=== PATIENT | female | born 1940 | race Caucasian/White ===

== ENCOUNTER 2017-03-30 06:20 | Day surgery (SDC) | payer MEDICARE, BC ==
[~2017-03-30] VITALS: Ht 172.7 cm; Wt 69.4 kg
[~2017-03-30 06:20] MED LIST: ASPIRIN325 MG PO; B COMPLEX WITH1 EACH PO; CALCIUM CITRAT1 EAC3 PO; CO Q-10300 MG PO; FISH OIL 1,0001 EAC1 PO; GLUCOSAMINE 1,1 EACH PO; MACULAR VITAMI1 EACH PO; PRENATAL TABLE1 EAC2 PO; VITAMIN D32000 UNIT PO
--- NOTE | 2017-03-30 08:41 | NUR ---
03/30/17 0841 Summer Abbasi 0840- AT BEDSIDE.
--- NOTE | 2017-03-30 18:55 | OR ---
[facility] [address], [place] [address] Signed DATE OF OPERATION: 03/30/2017 SURGEON: Carlos Hoyt MD PREOPERATIVE DIAGNOSIS: Heme-positive stools. POSTOPERATIVE DIAGNOSIS: Polyps of rectosigmoid and rectum, unlikely source of heme-positive stools. PROCEDURE: Total colonoscopy to cecum with hot snare polypectomy x2 and cold morcellation polypectomy x4. SURGEON: Carlos Hoyt MD ANESTHESIA: Intravenous sedation, Propofol infusion, Nany José CRNA INDICATION: This 76-year-old white woman is a patient of Dr. Lamont Santoyo and was found to have heme-positive stool. She has never undergone colonoscopy in the past, though she has offered to have one several times. She is found to have 3/3 heme occult positive cards. She has had no overt rectal bleeding. She denies any abdominal pain. She is admitted to undergo colonoscopy. She understands the risks of bleeding, infection, and perforation. She notes that she has had issues with sedation in the past, mostly perioperative nausea and vomiting. On that basis and given her other medical comorbidities, anesthesia with propofol infusion is recommended. The risks of bleeding, infection, and perforation related to colonoscopy was reviewed. She understands and wished to proceed. FINDINGS: The prep was excellent. Complete colonoscopy was undertaken of the cecum. There were two larger sessile polyps, one at the rectosigmoid and one in the low rectum. She also had some diverticula of the sigmoid. There were small hyperplastic polyps of the low rectum, all excised with cold morcellation technique. DESCRIPTION OF PROCEDURE: The patient was brought to the endoscopy suite and placed in lateral decubitus position given intravenous sedation by the lumber straightened with propofol infusional technique and full Electronically Signed By: CARLOS HOYT MD 03/30/17 1855 PATIENT NAME: JOELLE GUZMAN OPERATIVE REPORT DATE OF : 40 PHYSICIAN: CARLOS HOYT MD REPORT #: [id number] REPORT IS CONFIDENTIAL AND NOT TO BE RELEASED WITHOUT AUTHORIZATION [facility] [address], [place] [address] Signed cardiopulmonary monitoring. Digital rectal examination was normal. An Olympus video colonoscope was passed in the rectum and manipulated throughout the colon ultimately intubating the cecum itself. The ileocecal valve and appendiceal orifice were normal. Abdominal wall stabilization was required as the colon was somewhat tortuous. The scope was withdrawn and examination throughout showed no sign of abnormality until the sigmoid or diverticula were noted. In the rectosigmoid with a sessile polyp, this was excised with hot snare polypectomy technique. A few diverticula were seen in the rectosigmoid as well. Further withdrawal of scope showed several small hyperplastic appearing polyps in the low rectum and one larger sessile polyp of the low rectum also. The small polyps were excised with cold morcellation technique, the larger with hot snare polypectomy technique as well. The scope was withdrawn and removed. The patient was taken to the recovery room in good condition. CONCLUDING DIAGNOSIS: Several polyps, two of which were possibly adenomatous, the most hyperplastic, however. These were unlikely a source of heme-positive stool. RECOMMENDATION: Repeat colonoscopy in 5 years or sooner if clinically indicated. She will return to the ongoing care of Dr. Santoyo. MD MILA Jeter/MODL /[id number] cc: Lamont Santoyo MD Electronically Signed By: CARLOS HOYT MD 03/30/17 1855 PATIENT NAME: JOELLE GUZMAN OPERATIVE REPORT DATE OF : 40 PHYSICIAN: CARLOS HOYT MD REPORT #: [id number] REPORT IS CONFIDENTIAL AND NOT TO BE RELEASED WITHOUT AUTHORIZATION
== END 2017-03-30 09:15 | disposition home or self-care (01) ==
LOC: DS 06:20 → OPS 06:20 → DS 06:45 → OPS 06:45 → DS 04-02 13:00
PROVIDERS: Surgery
PROC: 0DBN8ZX Excision of Sigmoid Colon, Via Natural or Artificial Opening Endoscopic, Diagnostic (ICD-10-PCS; 2017-03-30)
PROC: 0DBP8ZX Excision of Rectum, Via Natural or Artificial Opening Endoscopic, Diagnostic (ICD-10-PCS; principal; 2017-03-30 06:45)
DX: K62.1 Rectal polyp (principal); K63.5 Polyp of colon; Z88.5 Allergy status to narcotic agent; Z88.8 Allergy status to other drugs, medicaments and biological substances; Z90.710 Acquired absence of both cervix and uterus; Z90.49 Acquired absence of other specified parts of digestive tract; Z98.890 Other specified postprocedural states; Z79.899 Other long term (current) drug therapy; Z87.891 Personal history of nicotine dependence
CPT/HCPCS: 00810; 88305; J1100; J2250; J2405; J2704; J3010; J7120

== ENCOUNTER 2020-01-14 01:12 | Emergency (ER) | payer MEDICARE, BC ==
[~2020-01-14] VITALS: Ht 172.7 cm; Wt 69.4 kg
[2020-01-14] MEDS ORDERED: VITAMIN C500 M5 PO (01:42)
[2020-01-14] MEDS ORDERED: COENZYME Q10100 M1 PO (01:43)
[2020-01-14] MEDS ORDERED: FIBER625 MG (01:49)
[2020-01-14] MEDS ORDERED: OXYCODONE-ACET1 EAC1 PO (01:51)
--- NOTE | 2020-01-14 13:13 | EKG ---
[facility] [address] [facility] [place] [address] Signed Sinus tachycardia with premature atrial complexes Right bundle branch block Septal infarct , age undetermined T wave abnormality, consider lateral ischemia Abnormal ECG No previous ECGs available Confirmed by ALIVIA DAVALOS MD ([id number]) on 01/14/2020 1:13:03 PM Electronically Signed By: ALIVIA DAVALOS MD 01/14/20 1313 PATIENT NAME: JOELLE GUZMAN Electrocardiogram DATE OF : 40 PHYSICIAN: ALIVIA DAVALOS MD REPORT #: [id number] REPORT IS CONFIDENTIAL AND NOT TO BE RELEASED WITHOUT AUTHORIZATION
== END 2020-01-14 03:40 | disposition short-term general hospital (02) ==
LOC: ED 01:12
DX: I26.99 Other pulmonary embolism without acute cor pulmonale (principal); Z87.891 Personal history of nicotine dependence; Z88.8 Allergy status to other drugs, medicaments and biological substances; Z79.899 Other long term (current) drug therapy; Z79.82 Long term (current) use of aspirin
CPT/HCPCS: 71045; 71260; 80053; 83880; 84484; 85025; 85379; 85610; 85730; 93005; 93010; 96361; 99291; 99292; J1170; J1650; J2405; J7030; Q9967

== ENCOUNTER 2020-01-31 17:34 | Emergency (ER) | payer MEDICARE, BC ==
[~2020-01-31] VITALS: Ht 172.7 cm; Wt 69.4 kg
--- OUTSIDE RECORDS SUMMARY | ~2020-01-31 | XMS | Encounter Summary ---
Demographics + + + | Address | [address] | | | [place] [address] | + + + | Home Phone | | + + + | Preferred Language | Unknown | + + + | Marital Status | | + + + | Yazidism Affiliation | 1077 | + + + | Race | White | + + + | Ethnic Group | Not or | + + + Author + + + | Author | [facility] | | | and [place] | + + + | Organization | [facility] | | | and [place] | + + + | Address | Unknown | + + + | Phone | Unavailable | + + + Support + + + + + | Name | Relationship | Address | Phone | + + + + + | Pantera Quiñonez "Vanesa BAINS | ECON | [address] | | | [place] | | [place] | | | | | [address] | | + + + + + | Todd Paris | ECON | Unknown | | + + + + + Care Team Providers + +------+ + | Care Traffic Control Officer Name | Role | Phone | + +------+ + | Lamont Santoyo MD | PCP | | + +------+ + Encounter Details +--------+ + + + + | Date | Type | Department | Care Team | Description | +--------+ + + + + | 07/21/ | Imaging | [facility] | Provider, | | | 2019 | Exam | MED CTR EXTERNAL | [address] | | | | | IMAGING [address] | | | | | [address] [place] | [place] [address] | | | | | [place] [address] | | | | | | [phone] | | | +--------+ + + + + Social History + +-------+ +--------+------+ | Tobacco Use | Types | Packs/Day | Years | Date | | | | | Used | | + +-------+ +--------+------+ | Never Assessed | | | | | + +-------+ +--------+------+ + + + | Sex Assigned at | Date Recorded | | | | + + + | Not on file | | + + + documented as of this encounter Plan of Treatment +--------+---------+ + + + | Date | Type | Specialty | Care Team | Description | +--------+---------+ + + + | 01/31/ | Office | General Surgery | Pepe Stone, | | 2019 | Visit | | [address] | | | | | | [address] [place], | | | | | | [place] [address] | | | | | | [phone] | | | | | | | | +--------+---------+ + + + | 02/01/ | Office | Orthopedic Surgery | David Gomez, | | | 2019 | Visit | | [address] | | | | | | [place] [address] | | | | | | [phone] | | | | | | | | +--------+---------+ + + + documented as of this encounter Procedures + +--------+ + + + | Procedure Name | Priori | Date/Time | Associated Diagnosis | Comments | | | ty | | | | + +--------+ + + + | DEXA BONE DENSITY | Routin | 12/08/2017 | | Results for this | | STUDY GEORGETTE ZAMORA FX | e | 12:00 AM | | procedure are in the | | ASSESSMENT | | PDT | | results section. | + +--------+ + + + documented in this encounter Results DEXA Bone Density wo [facility] Fx Assmt (12/08/2017 12:00 AM PDT) + + | Specimen | + + | | + + + + + | Narrative | Performed At | + + + | External films for comparison only | [facility] | | | | | No results will be in the chart. | | + + + + +---------+ + + | Performing | Address | City/State/Zipcode | Phone Number | | Organization | | | | + +---------+ + + | [facility] | | | | + +---------+ + + documented in this encounter Visit Diagnoses Not on filedocumented in this encounter
--- OUTSIDE RECORDS SUMMARY | ~2020-01-31 | XMS | Encounter Summary ---
Demographics + + + | Address | [address] | | | [place] [address] | + + + | Home Phone | | + + + | Preferred Language | Unknown | + + + | Marital Status | | + + + | Adventist Affiliation | 1077 | + + + | Race | White | + + + | Ethnic Group | Not or | + + + Author + + + | Author | [facility] | | | and [place] | + + + | Organization | [facility] | | | [...] [place] | | | | | [address] | | + + + + + | Todd Paris | ECON | Unknown | | + + + + + Care Team Providers + +------+ + | Care Resistor Testing Machine Operator Name | Role | Phone | + +------+ + | Lamont Santoyo MD | PCP | | + +------+ + Reason for Visit + +--------+ + | Reason | Onset | Comments | | | Date | | + +--------+ + | Post-op Exam | 01/15/ | tube removal | | | 2019 | | + +--------+ + Encounter Details +--------+ + + + + | Date | Type | Department | Care Team | Description | +--------+ + + + + | 01/15/ | Telephone | [facility] | Pepe Stoen, | Post-op Exam (tube | | 2019 | | GENERAL SURGERY [address] | MD [address] | removal ) | | | | [address] | [address] [place], | | | | | [place], [place] | [place] [address] | | | | | [address] | [phone] | | | | | [phone] | | | +--------+ + + + + Social History + +-------+ +--------+ + | Tobacco Use | Types | Packs/Day | Years | Date | | | | | Used | | + +-------+ +--------+ + | Former Smoker | | | | Quit: 1996 | + +-------+ +--------+ + + +---+---+---+ | Smokeless Tobacco: | | | | | Never Used | | | | + +---+---+---+ + + +---------+ + | Alcohol Use | Drinks/Week | oz/Week | Comments | + + +---------+ + | Yes | 2 Glasses of wine | 2.0 | a night | + + +---------+ + + + + | Sex Assigned at | Date Recorded | | | | + + + | Not on file | | + + + documented as of this encounter Miscellaneous Notes Telephone Encounter - Nirali Valdovinos RN - 01/16/2020 2:44 PM PDTBelia, daughter, kamron ed two patient identifiers. Returned call to daughter in regards to patients current status. Advised that provider will call and check on her tomorrow when he is back tomorrow. Belia verbalized understanding and agreed with plan. elephone Encounter - Michell Breen - 01/16/2020 1:25 PM PDTBelia, is calling regarding Post-op Exam (tube removal ) and would like a call back. Additional Call Details: Daughter stated patient is admitted at [facility] and will not be making it to her 01/17 post-op. She stated the drainage tube has been kimberly janette and there is a hole where the tube was and patient is still having a lot of drainage. Loi freire is requesting that the provider call the hospital and speak with the provider that is in charge of her care to make sure all the information is correct. Belia is also requesting a call back. [facility] number is [phone] patient is in room 3108 If this is a symptom based call, was patient offered triage? 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 not applicable documented in this encounter Plan of Treatment +--------+---------+ + + + | Date | Type | Specialty | Care Team | Description | +--------+---------+ + + + | 01/31/ | Office | General Surgery | Pepe Stoen, | | 2019 | Visit | | [address] | | | | | | [address] [place] | | | | | | [place] [address] | | | | | | [phone] | | | | | | | | +--------+---------+ + + + | 02/01/ | Office | Orthopedic Surgery | David Gomez, | | 2019 | Visit | | [address] | | | | | | [place] [address] | | | | | | [phone] | | | | | | | | +--------+---------+ + + + documented as of this encounter Visit Diagnoses Not on filedocumented in this encounter
--- OUTSIDE RECORDS SUMMARY | ~2020-01-31 | XMS | Encounter Summary ---
Demographics + + + | Address | [address] | | | [place] [address] | + + + | Home Phone | | + + + | Preferred Language | Unknown | + + + | Marital Status | Unknown | + + + | Christianity Affiliation | Unknown | + + + | Race | Unknown | + + + | Ethnic Group | Unknown | + + + Author + + + | Author | [facility] | + + + | Organization | [facility] | + + + | Address | Unknown | + + + | Phone | Unavailable | + + + Care Team Providers + +------+ + | Care Newspaper Peddler Name | Role | Phone | + +------+ + PCP | Unavailable | + +------+ + Encounter Details +--------+ + + + + | Date | Type | Department | Care Team | Description | +--------+ + + + + | 01/15/ | Pharmacy | Pharmacy @ | | | | 2019 | Visit | [facility] | | | | | | [place] [address] [address] | | | | | | [facility] [address] | | | | | | [place] [address] | | | +--------+ + + + [...] as of this encounter Plan of Treatment Not on filedocumented as of this encounter Visit Diagnoses Not on filedocumented in this encounter"
--- OUTSIDE RECORDS SUMMARY | ~2020-01-31 | XMS | Encounter Summary ---
Demographics + + + | Address | [address] | | | [place] [address] | + + + | Home Phone | | + + + | Preferred Language | Unknown | + + + | Marital Status | | + + + | Lutheran Affiliation | 1077 | + + + | Race | White | + + + | Ethnic Group | Not or | + + + Author + + + | Author | [facility] | | | and [place] | + + + | Organization | [facility] | | | and [...] [place] | | | | | [address] | | + + + + + | Todd Paris | ECON | Unknown | | + + + + + Care Team Providers + +------+ + | Care Business Resiliency Manager Name | Role | Phone | + +------+ + | Lamont Santoyo MD | PCP | | + +------+ + Encounter Details +--------+ + + + + | Date | Type | Department | Care Team | Description | +--------+ + + + + | 11/25/ | Imaging | [facility] | Provider, | | | 2018 | Exam | MED CTR EXTERNAL | [address] | | | | | IMAGING [address] | [address] | | | | | [address] [place] | [place] [address] | | | | | [place] [address] | | | | | | [phone] | | | +--------+ + + + [...] | | | | | | [place] [address] | | | | | | [phone] | | | | | | | | +--------+---------+ + + + | 02/01/ | Office | Orthopedic Surgery | David Gomez, | | | 2019 | Visit | | [address] | | | | | | [place] [address] | | | | | | [phone] | | | | | | | | +--------+---------+ + + + documented as of this encounter Procedures + +--------+ + + + | Procedure Name | Priori | Date/Time | Associated Diagnosis | Comments | | | ty | | | | + +--------+ + + + | XR LUMBAR SPINE 2 OR | Routin | 11/02/2017 | | Results for this | | 3 VW | e | 12:20 PM | | procedure are in the | | | | PDT | | results section. | + +--------+ + + + documented in this encounter Results XR Lumbar Spine 2 or 3 Vw (11/02/2017 12:20 PM PDT) + + | Specimen | + [...]
--- OUTSIDE RECORDS SUMMARY | ~2020-01-31 | XMS | Encounter Summary ---
Demographics + + + | Address | [address] | | | [place] [address] | + + + | Home Phone | | + + + | Preferred Language | Unknown | + + + | Marital Status | | + + + | Synagogue Affiliation | 1077 | + + + | Race | White | + + + | Ethnic Group | Not or | + + + Author + + + | Author | [facility] | | | and [place] | + + + | Organization | [facility] | | | and [...] [place] | | | | | [address] | | + + + + + | Todd Paris | ECON | Unknown | | + + + + + Care Team Providers + +------+ + | Care Containers Sales Representative Name | Role | Phone | + +------+ + PCP | Unavailable | + +------+ + Encounter Details +--------+ + + + + | Date | Type | Department | Care Team | Description | +--------+ + + + + | 04/15/ | Hospital | [facility] | Slade De Leon, | | | 1999 | Encounter | MED CTR XRAY [address] | MD [address] | | | | | [place] | [place], [place] | | | | | [place] [address] | [address] | | | | | [phone] | | | +--------+ + + + [...] General Surgery | Pepe Stone, | | | 2019 | Visit | | [address] | | | | | | [address] [place] | | | | | | [place] [address] | | | | | | [phone] | | | | | | | | +--------+---------+ + + + | 02/01/ | Office | Orthopedic Surgery | David Gomez, | | | 2019 | Visit | | [address] | | | | | | [place] [address] | | | | | | [phone] | | | | | | | | +--------+---------+ + + + documented as of this encounter Visit Diagnoses Not on filedocumented in this encounter
--- OUTSIDE RECORDS SUMMARY | ~2020-01-31 | XMS | Encounter Summary ---
Demographics + + + | Address | [address] | | | [place] [address] | + + + | Home Phone | | + + + | Preferred Language | Unknown | + + + | Marital Status | Unknown | + + + | Orthodoxy Affiliation | Unknown | + + + | Race | Unknown | + + + | Ethnic Group | Unknown | + + + Author + + + | Author | [facility] | + + + | Organization | [facility] | + + + | Address | Unknown | + + + | Phone | Unavailable | + + + Care Team Providers + +------+ + | Care Ribbon Cleaner Name | Role | Phone | + +------+ + PCP | Unavailable | + +------+ + Encounter Details +--------+ + + + + | Date | Type | Department | Care Team | Description | +--------+ + + + + | 01/16/ | Pharmacy | Pharmacy @ | | | | 2019 | Visit | [facility] | | | | | | [place] [address] [address] | | | | | | [facility] [address] | | | | | | [place] [address] | | | +--------+ + + + [...]
--- OUTSIDE RECORDS SUMMARY | ~2020-01-31 | XMS | Encounter Summary ---
Demographics + + + | Address | [address] | | | [place] [address] | + + + | Home Phone | | + + + | Preferred Language | Unknown | + + + | Marital Status | | + + + | Caodaism Affiliation | 1077 | + + + | Race | White | + + + | Ethnic Group | Not or | + + + Author + + + | Author | [facility] | | | and [place] | + + + | Organization | [facility] | | [...] [place] | | | | | [address] | | + + + + + | Todd Paris | ECON | Unknown | | + + + + + Care Team Providers + +------+ + | Care Outdoor Pursuits Instructor Name | Role | Phone | + +------+ + | Lamont Santoyo MD | PCP | | + +------+ + Encounter Details +--------+ + + + + | Date | Type | Department | Care Team | Description | +--------+ + + + + | 12/23/ | Orders Only | [facility] [place] | Yassine Beach MD | Back pain, | | 2018 | | NEUROSURGERY [address] | unspecified back | | | | [address] | [place] [address] | location, | | | | [place] | [phone] | unspecified back | | | | [address] | | pain laterality, | | | | [phone] | | unspecified | | | | | | chronicity (Primary | | | | | | Dx) | +--------+ + + + + Social [...] Surgery | Pepe Stone, | | | 2020 | Visit | | [address] | | | | | | [address] [place], | | | | | | [place] [address] | | | | | | [phone] | | | | | | | | +--------+---------+ + + + | 02/01/ | Office | Orthopedic Surgery | Patricia David Catarina, | | | 2019 | Visit | | [address] [facility] | | | | | | [place] [address] | | | | | | [phone] | | | | | | | | +--------+---------+ + + + documented as of this encounter Visit Diagnoses + + | Diagnosis | + + | Back pain, unspecified back location, unspecified back pain laterality, unspecified | | chronicity - Primary | + + documented in this encounter
--- OUTSIDE RECORDS SUMMARY | ~2020-01-31 | XMS | Encounter Summary ---
Demographics + + + | Address | [address] | | | [place] [address] | + + + | Home Phone | | + + + | Preferred Language | Unknown | + + + | Marital Status | | + + + | Taoist Affiliation | 1077 | + + + | Race | White | + + + | Ethnic Group | Not or | + + + Author + + + | Author | [facility] | | | and [place] | + + + | Organization | [facility] | | | and [place] | + + + | Address | Unknown | + + + | Phone | Unavailable | + + + Support + + + + + | Name | Relationship | Address | Phone | + + + + + | Pantera Quiñonez "Vanesa BAISN | ECON | [address] | | | [place] | | [place] | | | | | [address] | | + + + + + | Lizz Paris | ECON | Unknown | | + + + + + Care Team Providers + +------+ + | Care Aspnet Developer Name | Role | Phone | + +------+ + | Lamont Santoyo MD | PCP | | + +------+ + Reason for Visit + +--------+ + | Reason | Onset | Comments | | | Date | | + +--------+ + | Referral (Follow up) | 01/27/ | | | | 2017 | | + +--------+ + Encounter Details +--------+ + + + + | Date | Type | Department | Care Team | Description | +--------+ + + + + | 01/27/ | Telephone | [facility] | Yassine Beach MD | Referral (Follow up) | | 2018 | | NEUROSURGERY [address] | [address] | | | | | [facility] [address] | [place] [address] | | | | | [place] | [phone] | | | | | [address] | | | | | | [phone] | | | +--------+ + + + [...] + + +---------+ + | Yes | 7 Glasses of wine | 14.0 | | | | 7 Standard drinks | | | | | or equivalent | | | + + +---------+ + + + + | Sex Assigned at | Date Recorded | | | | + + + | Not on file | | + + + documented as of this encounter Miscellaneous Notes Telephone Encounter - Kurtis Burton Cert MA - 02/03/2018 4:14 PM PDTI spoke with Fátmia. I let her know that due to Dr. Ty declining her referral, lizz has suggested a refe rral to a pain clinic. We talked briefly about pain clinics and what they do typically for patients. She is not on pain medications right now. She said she would prefer to give her symptoms more time to see if they get better on their own. If not, she will call us to scott gomez a referral to [facility] in [place]. [place] elephone Encounte r - Andrew Mao PA-C - 02/02/2018 8:43 AM PDTWe should work on having her establi sh with a pain medicine clinic to help manage her pain. elephone Encounter - [facility] - 01/27/2018 10:35 AM PDTPatient called in and I was able to relay to her that Dr. Angelina rob declined her referral and and I relayed his review of the referral: "Referral closed- decreased bone density with too many compression fx. Injections not an op tion." I discussed with patient that I will forward this information to Lizz Mao, and we will con tact her with further recommendations. She verbalized understanding. Last Office Visit: 01/15/2018 Lizz Last Plan: Obtain DEXA, "The patient would like to avoid surgery at this time. She would like to intensify conservative therapy as we have discussed. I will provide a referral to marlena navarro. We discussed working on getting her LSO brace for comfort during her healing. I again reiterated following up with her primary care provider for her osteoporosis treatments as well as further discussion regarding her heart murmur." Next Office Visit: None Please advise further. Ellen lizarraga in this encounter Plan of Treatment +--------+---------+ + + + | Date | Type | Specialty | Care Team | Description | +--------+---------+ + + + | 01/31/ | Office | General Surgery | Pepe Stone, | | | 2019 | Visit | | MD [address] | | | | | | [address] [place], | | | | | | [place] [address] | | | | | | [phone] | | | | | | | | +--------+---------+ + + + | 02/01/ | Office | Orthopedic Surgery | David Gomez, | | | 2019 | Visit | | [address] | | | | | | [place] [address] | | | | | | [phone] | | | | | | | | +--------+---------+ + + + documented as of this encounter Visit Diagnoses Not on filedocumented in this encounter
--- OUTSIDE RECORDS SUMMARY | ~2020-01-31 | XMS | Encounter Summary ---
Demographics + + + | Address | [address] | | | [place] [address] | + + + | Home Phone | | + + + | Preferred Language | Unknown | + + + | Marital Status | | + + + | Scientology Affiliation | 1077 | + + + | Race | White | + + + | Ethnic Group | Not or | + + + Author + + + | Author | [facility] | | | and [place] | + + + | Organization | [facility] | | | [...] [place] | | | | | [address] | | + + + + + | Todd Paris | ECON | Unknown | | + + + + + Care Team Providers + +------+ + | Care Data Modeling Architect Name | Role | Phone | + +------+ + | Lamont Santoyo MD | PCP | | + +------+ + Encounter Details +--------+ + + + + | Date | Type | Department | Care Team | Description | +--------+ + + + + | 01/11/ | Imaging | [facility] | Provider, | | | 2018 | Exam | [facility] | MD [address] | | | | | IMAGING [address] | | | | | [address] | [place] [address] | | | | | [place] [address] | | | | | | [phone] | | | +--------+ + + + + Social History + +-------+ +--------+ + | Tobacco Use | Types | Packs/Day | Years | Date | | | | | Used | | + +-------+ +--------+ + | Former Smoker | | | | Quit: 1995 | + +-------+ +--------+ + + + +---------+ + | Alcohol Use | Drinks/Week | oz/Week | Comments | + + +---------+ + | Not Asked | 7 Standard drinks | 7.0 | | | | or equivalent | [...] [place], | | | | | | [place] [address] | | | | | | [phone] | | | | | | | | +--------+---------+ + + + | 02/01/ | Office | Orthopedic Surgery | David Gomez, | | | 2019 | Visit | | [address] | | | | | | [place] [address] | | | | | | [phone] | | | | | | | | +--------+---------+ + + + documented as of this encounter Procedures + +--------+ + + + | Procedure Name | Priori | Date/Time | Associated Diagnosis | Comments | | | ty | | | | + +--------+ + + + | XR LUMBAR SPINE | Routin | 01/08/2018 | | Results for this | | COMPLETE INCLUDING | e | 1:00 PM | | procedure are in the | | BENDING 6 + VW | | PDT | | results section. | + +--------+ + + + documented in this encounter Results XR Lumbar Spine Complete With Bending 6+ (01/08/2018 1:00 PM PDT) + + | Specimen | [...]
--- OUTSIDE RECORDS SUMMARY | ~2020-01-31 | XMS | Encounter Summary ---
Demographics + + + | Address | [address] | | | [place] [address] | + + + | Home Phone | | + + + | Preferred Language | Unknown | + + + | Marital Status | | + + + | Adventist Affiliation | 1077 | + + + | Race | White | + + + | Ethnic Group | Not or | + + + Author + + + | Author | [facility] | | | and [place] | + + + | Organization | [facility] | | | and [...] [place] | | | | | [address] | | + + + + + | Todd [place] | ECON | Unknown | | + + + + + Care Team Providers + +------+ + | Care Knuckle Bender Name | Role | Phone | + [...] | | | [address] | [place] [address] | | | | | [place] [address] | | | | | | [phone] | | | +--------+ + + + [...] | | | | | | [place] [address] | | | | | | [phone] | | | | | | | | +--------+---------+ + + + | 02/01/ | Office | Orthopedic Surgery | David Gomez, | | | 2019 | Visit | | [address] | | | | | | [place] [address] | | | | | | [phone] | | | | | | | | +--------+---------+ + + + documented as of this encounter Procedures + +--------+ + + + | Procedure Name | Priori | Date/Time | Associated Diagnosis | Comments | | | ty | | | | + +--------+ + + + | MRI LUMBAR SPINE WO | Routin | 11/11/2017 | | Results for this | | CONTRAST | e | 11:05 AM | | procedure are in the | | | | PDT | | results section. | + +--------+ + + + documented in this encounter Results MRI Lumbar Spine wo Contrast (11/11/2017 11:05 AM PDT) + + | Specimen | [...]
--- OUTSIDE RECORDS SUMMARY | ~2020-01-31 | XMS | Encounter Summary ---
Demographics + + + | Address | [address] | | | [place] [address] | + + + | Home Phone | | + + + | Preferred Language | Unknown | + + + | Marital Status | | + + + | Religion Affiliation | 1077 | + + + | Race | White | + + + | Ethnic Group | Not or | + + + Author + + + | Author | Merged With [facility] | | | and [place] | + + + | Organization | Merged With [facility] | | | [...] [place] | | | | | [id number] | | + + + + + | Todd Guzman | ECON | Unknown | | + + + + + Care Team Providers + +------+ + | Care Church Warden Name | Role | Phone | + +------+ + | Lamont Santoyo MD | PCP | | + +------+ + Reason for Visit Auth/Cert +--------+--------+ + + + + | Status | Reason | Specialty | Diagnoses / | Referred By | Referred To | | | | | Procedures | Contact | Contact | +--------+--------+ + + + + | | | | Diagnoses | | Patricia, | | | | | Malignant | | David Elmore MD | | | | | melanoma of | | [address] | | | | | finger of | | [facility], | | | | | right hand | | [place] [address] | | | | | (HCC) | | Phone: | | | | | Procedures | | [phone] | | | | | [place] EXC | | Fax: | | | | | MICHELLE/VAS MAL | | [phone] | | | | | SFT TIS | | | | | | | HAND/FNGR | | | | | | | SUBFASC<1.5C | | | | | | | M BIOPSY | | | | | | | LYMPH NODE | | | | | | | GENERAL | | | | | | | EXCISION | | | | | | | LESION HAND | | | | | | | / FINGER, | | | | | | | EXCISIONAL | | | | | | | BIOPSY RIGHT | | | | | | | INDEX | | | | | | | FINGER | | | | | | | VERSUS | | | | | | | RESECTION | | | +--------+--------+ + + + + Encounter Details +--------+---------+ + + + | Date | Type | Department | Care Team | Description | +--------+---------+ + + + | 12/12/ | Surgery | [facility] | Pepe Stone, | BIOPSY LYMPH NODE | | 2020 | | [facility] | [address] | GENERAL | | | | OPERATING ROOM [address] | [address] [facility] | | | | | [address] | [place] [address] | | | | | [place], [place] | [phone] | | | | | [address] | | | | | | [phone] | | | +--------+---------+ + + + Social History + +-------+ [...] + + documented as of this encounter Last Filed Vital Signs + + + + + | Vital Sign | Reading | Time Taken | Comments | + + + + + | Blood Pressure | 170/77 | 12/13/2019 6:25 PM | | | | | PDT | | + + + + + | Pulse | 74 | 12/13/2019 6:25 PM | | | | | PDT | | + + + + + | Temperature | 36.4 C (97.6 F) | 12/13/2019 5:44 PM | | | | | PDT | | + + + + + | Respiratory Rate | 16 | 12/13/2019 6:25 PM | | | | | PDT | | + + + + + | Oxygen Saturation | 100% | 12/13/2019 6:25 PM | | | | | PDT | | + + + + + | Inhaled Oxygen | - | - | | | Concentration | | | | + + + + + | Weight | 61.7 kg (136 lb 0.4 | 12/13/2019 4:00 PM | | | | oz) | PDT | | + + + + + | Height | 171.5 cm (5' 7.5") | 12/13/2019 4:00 PM | | | | | PDT | | + + + + + | Body Mass Index | 20.99 | 12/13/2019 4:00 PM | | | | | PDT | | + + + + + documented in this encounter Discharge Summaries David Gomez MD - [facility] Brief Post Op Discharge Note Post Procedure Discharge Note; See Operative Note for details Fátima Guzman Age/Gender 79 y.o. 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 Condition at Discharge: She will be discharged when she is ready per nursing protocol. See nursing notes regarding actual condition at discharge. David Gomez MD 8:27 AM PDT; 12/14/2019 cc: documented in this en counter Discharge Instructions Instructions Karyna Juarez, RN - 12/14/2019Formatting of this note might be different fr om the original. David Gomez MD Postoperative Instructions As you recover from surgery here are instructions to aid the healing process and keep you s afe. Diet Regular diet, or your diet specified by your primary care provider. Begin with enrrique ar liquids and advance to solids as you tolerate. No alcoholic beverages on the day of surge ry. Also, please AVOID smoking as this can significantly delay the healing process. Activity Keep the operative extremity above the level of your heart for the next 5 days . Please avoid shoulder slings as these place your hand/wrist below the level of your heart Dressing/Surgery site Please keep your dressing clean and dry. You may NOT remove your dressing. You may shower tomorrow but please keep your wound/dressing covered and dry Pain medicine Take pain medicine PRN or as needed. Try to wean yourself gradually off pain medicine over several days. Do NOT drink alcohol or take sleeping medicines while on narcotics. You should take pain medicine with food to avoid nausea. In addition, pain med icine may cause constipation. Please drink plenty of fluids and take a laxative of your martínez ce (over the counter) as needed. After surgery Slight swelling, pain and some bruising may occur after surgery. Please contact my office if any of the following occur: sustained temperature over 101.5?F, excessi ve bleeding, rapidly increasing numbness, inability to urinate within 8 hours, progressively increasing pain not relieved by pain medicines, signs of a wound infection (increased redne ss, swelling, pus drainage), or excessive swelling/tightness. Office appointment Please return to my office in 7-10 days for a dressing change. Call with any questions or to schedule/re-schedule an appointment. I look forward to seeing you. Provision for after-hours and emergency care: If you have an emergency such as chest pain or shortness of breath please call 9-1-1. If you need the doctor after hours or on the weekends, please refer to the phone number gfd ui. For [facility] offices located on [facility] and on [address] [place] [address] please call . This will take you to an answering service, who will then get you in contact with a medical professional. Acetaminophen; Hydrocodone tablets or capsules Brand Names: Anexsia, Lorcet, Lorcet HD, Lorcet Plus, Lortab, Tribune, Verdrocet, Vicodin, Vi codin ES, Vicodin HP, Xodol What is this medicine? ACETAMINOPHEN; HYDROCODONE (a set a KRISH agustín fen; denice droe KOE done) is a pain reliever. It is used to treat moderate to severe pain. How should I use this medicine? Take this medicine by mouth with a glass of water. Follow the directions on the prescriptio n label. You can take it with or without food. If it upsets your stomach, take it with food. Do not take your medicine more often than directed. A special MedGuide will be given to you by the pharmacist with each prescription and refill . Be sure to read this information carefully each time. Talk to your seasonal sales associate regarding the use of this medicine in children. Special care may be needed. What side effects may I notice from receiving this medicine? Side effects that you should report to your doctor or health director of health care marketing as soon as p ossible: allergic reactions like skin rash, itching or hives, swelling of the face, lips, or tong ue breathing problems confusion redness, blistering, peeling or loosening of the skin, including inside the mouth signs and symptoms of low blood pressure like dizziness; feeling faint or lightheaded, f alls; unusually weak or tired trouble passing urine or change in the amount of urine yellowing of the eyes or skin Side effects that usually do not require medical attention (report to your doctor or health director of health care marketing if they continue or are bothersome): constipation dry mouth nausea, vomiting tiredness What may interact with this medicine? This medicine may interact with the following medications: alcohol antiviral medicines for HIV or AIDS atropine antihistamines for allergy, cough and cold certain antibiotics like erythromycin, clarithromycin certain medicines for anxiety or sleep certain medicines for bladder problems like oxybutynin, tolterodine certain medicines for depression like amitriptyline, fluoxetine, sertraline certain medicines for fungal infections like ketoconazole and itraconazole certain medicines for Parkinson's disease like benztropine, trihexyphenidyl certain medicines for seizures like carbamazepine, phenobarbital, phenytoin, primidone certain medicines for stomach problems like dicyclomine, hyoscyamine certain medicines for travel sickness like scopolamine general anesthetics like halothane, isoflurane, methoxyflurane, propofol ipratropium local anesthetics like lidocaine, pramoxine, tetracaine MAOIs like Carbex, Eldepryl, Marplan, Nardil, and Parnate medicines that relax muscles for surgery other medicines with acetaminophen other narcotic medicines for pain or cough phenothiazines like chlorpromazine, mesoridazine, prochlorperazine, thioridazine rifampin What if I miss a dose? If you miss a dose, take it as soon as you can. If it is almost time for your next dose, ta ke only that dose. Do not take double or extra doses. Where should I keep my medicine? Keep out of the reach of children. This medicine can be abused. Keep your medicine in a saf e place to protect it from theft. Do not share this medicine with anyone. Selling or giving away this medicine is dangerous and against the law. Store at room temperature between 15 and 30 degrees C (59 and 86 degrees F). This medicine may cause harm and if it is taken by other adults, children, or pets. R eturn medicine that has not been used to an official disposal site. Contact the [facility] at [phone] or your [facility] government to find a site. If you cannot return the medicine, flush it down the toilet. Do not use the medicine after the expiration date. What should I tell my health care provider before I take this medicine? They need to know if you have any of these conditions: brain tumor Crohn's disease, inflammatory bowel disease, or ulcerative colitis drug abuse or addiction head injury heart or circulation problems if you often drink alcohol kidney disease or problems going to the bathroom liver disease lung disease, asthma, or breathing problems an unusual or allergic reaction to acetaminophen, hydrocodone, other opioid analgesics, other medicines, foods, dyes, or preservatives or trying to get breast-feeding What should I watch for while using this medicine? Tell your doctor or health director of health care marketing if your pain does not go away, if it gets wors e, or if you have new or a different type of pain. You may develop tolerance to the medicine . Tolerance means that you will need a higher dose of the medicine for pain relief. Toleranc e is normal and is expected if you take the medicine for a long time. Do not suddenly stop taking your medicine because you may develop a severe reaction. Your b ranjeet becomes used to the medicine. This does NOT mean you are addicted. Addiction is a behavi or related to getting and using a drug for a non-medical reason. If you have pain, you have a medical reason to take pain medicine. Your doctor will tell you how much medicine to take. If your doctor wants you to stop the medicine, the dose will be slowly lowered over time to avoid any side effects. There are different types of narcotic medicines (opiates). If you take more than one type a t the same time or if you are taking another medicine that also causes drowsiness, you may h ave more side effects. Give your health care provider a list of all medicines you use. Your doctor will tell you how much medicine to take. Do not take more medicine than directed. Mehul l emergency for help if you have problems breathing or unusual sleepiness. Do not take other medicines that contain acetaminophen with this medicine. Always read joe becerra carefully. If you have questions, ask your doctor or pharmacist. If you take too much acetaminophen get medical help right away. Too much acetaminophen can be very dangerous and cause liver damage. Even if you do not have symptoms, it is important to get help right away. You may get drowsy or dizzy. Do not drive, use machinery, or do anything that needs mental alertness until you know how this medicine affects you. Do not stand or sit up quickly, ricardo cially if you are an older patient. This reduces the risk of dizzy or fainting spells. Alcoh ol may interfere with the effect of this medicine. Avoid alcoholic drinks. The medicine will cause constipation. Try to have a bowel movement at least every 2 to 3 da ys. If you do not have a bowel movement for 3 days, call your doctor or health care professi onal. Your mouth may get dry. Chewing sugarless gum or sucking hard candy, and drinking plenty of water may help. Contact your doctor if the problem does not go away or is severe. NOTE:This sheet is a summary. It may not cover all possible information. If you have questi ons about this medicine, talk to your doctor, pharmacist, or health care provider. Copyright 2020 [employer] [facility] Take Back Locations, Pain Management and Opioids: Pain Management, Prescription Opioids: Opioid medications can be addictive and anyone is at risk for developing an opioid use disorder. Keep yourself and others safe by limiting usage , disposing of all unused medications, and knowing how to recognize the signs of opioid use disorder. Be informed of the options available to help manage and treat your pain. Review t he pain management plan of care with your provider. ? What is an Opioid? Opioids are a class of drugs that include pain relievers available [facility] by prescription. Opioid pain relievers can be effective in treatment for relieving pain , however, regular use can lead to dependence, and misuse of opioid pain relievers. ? What are the risks? Opioid use disorder, physical dependence, falls and accidents, increa sed sensitivity to pain and overdose. Talk to your physician before combining medication. ? Safe storage: Never share or sell your opioid medications, keep opioid medications locked or in a safe location, keep out of reach of children and out of sight from others. Leave in the original bottle with the label attached. ? Possible side effects: Nausea, vomiting, and dry mouth, constipation, sleepiness and dizz iness, confusion, respiratory depression, withdrawal. ? Proper disposal: You are not required to use all of your opioid medication. To find your nearest take-back location for proper disposal of unused medications, please visit: http://www.takeGrey Island Energymeds.org/, https://apps.STinserion.[employer].gov/pubdispsea [facility]/spring/main?execution=e1s3 ? Activities of daily living (ADL) are routine activities people do every day without lucien tance. Non-pharmacological interventions can be useful and incorporated to help with activit ies of daily living. These include, but are not limited to: Repositioning, cold/warm malka ses, massage, decreasing environmental stimulation (decrease lighting, decrease noise), musi c, aromatherapy. JANUARY 2018 | [facility] Pub [phone] Location Address Phone # Take Back Hours Accepts Does NOT Accept [facility] [address] [place] [address] [phone] Lobby hours: M-F: 8am-5pm Sat-Sun: See their Facebook page for dates (every few weeks) - Pills: tablets, capsules (in cluding controlled substances) - Liquids - Topical lotions, gels, creams, ointments - Sharps, syringes (including insulin) - Inhalers [employer] [facility] [address] [place] [address] [phone] Lobby hours: M-F: 8am-12pm, 1pm-5pm (closed 12-1pm) Sat-Sun: CLOSED - Pills: tablets, capsules (including controlled substances) - Liquids - Topical lotions, gels, creams, ointments - Sharps, syringes (including insulin) - Inhalers [employer] [employer] [address] [place] [address] [phone] Lobby hours: M-F: 8:30am-4:30pm Sat-Sun: CLOSED - Pills: tablets, capsules (including controlled substances) - Patches - Liquids - Topical lotions, gels, creams, ointments - Sharps, syringes (including insulin) - Inhalers [employer] [employer] [facility] [address] [place] [address] [phone] Lobby hours: M-F: 8am-5pm Sat-Sun: CLOSED - Pills: tablets, capsules (including controlled substances) - Liquids - Topical lotions, gels, creams, ointments - Sharps, syringes (including insulin) - Inhalers [facility] (store #[id number]) [address] [place] [address] [phone] Pharmacy hours: M-F: 9am-9pm Sat: 8am-9pm Sun: 9am-9pm - Pills: tablets, capsules (including controlled substances) - Liquids - Topical lotions, gels, creams, ointments - Sharps, syringes (including insulin) - Inhalers [employer] (local branch of [employer] [address] [place] [address] [phone] Call to schedule moss picker; only for current residential customers - Sharps, syringes (MUST be inside sharps container) - Drugs: including oral, topical, injectable, inhalers Last updated 07/2019 What is Coronavirus? The Novel Coronavirus 2019 (COVID-19) is a new virus strain that is spread mainly from pers cv-sv-vpxliz through respiratory droplets when an infected person coughs or sneezes. Symptom s may appear 2-14 days after exposure. Reported illnesses have ranged from mild symptoms to severe illness and for confirmed cases. Some people testing positive for COVID-19 have no symptoms at all (asymptomatic). The most common symptoms include: ? Cough ? Shortness of breath or difficulty breathing ? Fever ? Chills ? Muscle pain ? Sore throat ? New loss of taste or smell COVID-19 is most commonly spread from an infected person to others through: ? Between people who are in close contact with one another (within about 6 feet). ? Respiratory droplets produced by coughing and sneezing. These droplets can land in the mo uths or nose of people who are nearby or possibly be inhaled into the lungs. ? Touching a surface with the virus on it and then touching your mouth, nose, or eyes befor e washing your hands. How to protect yourself ? Avoid touching your eyes, nose and mouth with unwashed hands. ? Wash your hands often with soap and water for at least 20 seconds. This is especially imp ortant after blowing your nose, coughing, or sneezing; going to the bathroom; and before eat ing or preparing food. ? If soap and water are not available, use an alcohol-based hand clip baker with at least 60 % alcohol covering all surfaces of your hands and rubbing them together until they feel dry. ? Cover your cough or sneeze with a tissue, then throw the tissue in the trash. (Putting a tissue on a table contaminates the surface of the table with germs.) ? Routinely disinfect frequently touched objects and surfaces, using a cleaning spray or wi pe. ? Avoid travel to high-risk countries. Non-essential travel to or through any of the countr ies for which the CDC has issued a level 2 or 3 travel health notice is discouraged. https://www.cdc.gov/coronavirus/2019-ncov/travelers/index.html ? Stay at least 6 feet away from others when in public places, do not gather in groups, sta y out of crowded places, and avoid mass gatherings to slow the spread of the virus. ? Use of a simple cloth face covering to slow the spread of the virus in public settings wh ere it's hard to stay away from others, such as in grocery stores, pharmacies, and other are as where the virus might easily spread. Cloth masks do not protect the wearer but instead h old in droplets from sneezing or coughing to prevent spreading to other people and surfaces. Cloth face coverings fashioned from household items or made at home from common materials a t low cost can be used. It is not recommended to use surgical masks or N-95 respirators. A few definitions that you should be familiar with regarding COVID-19: Quarantine is used to keep someone who might have been exposed to COVID-19 away from others . Isolation is used to separate people infected with the virus (those who are sick from COVID -19 and those with no symptoms) from people who are not infected. Both quarantine and isolation are similar that they: ? involve separation of people to protect the public ? help limit further spread of COVID-19 ? can be done voluntarily or be required by health authorities What to do if you are sick? ? If you have a fever and cough, you may have COVID-19. Notify your medical provider. ? Stay home except to get medical care (see for Home Isolation) ? Monitor your symptoms When you should seek medical evaluation and advice? ? Call 911 if you have a medical emergency such as trouble breathing, persistent pain or pr essure in the chest, and/or bluish lips or face. If you have a medical emergency and need to call 911, notify the air press operator that you have or think you might have, COVID-19. If possible, put on a facemask before medical help arrives. ? If you are 65 and older, or have underlying conditions such as , heart disease, diabetes, lung disease and weakened immune system, work with your doctor to develop a plan t o determine your health risks to COVID-19 and how to manage symptoms. If you do have symptom s, contact your doctor immediately. ? For worsening symptoms or difficulty breathing, please contact your primary care provider or consider a virtual visit. ? If you do not have a high-risk condition and your symptoms are mild, you do not need to b e evaluated in person and do not need to be tested for COVID-19. (Please see Home Quarantin e and Isolation Instructions below) ? We ask that you please avoid coming to the emergency department, unless you have a health emergency and/or you have been advised by a provider to do so. This helps prevent the risk of spreading this disease and further exposure in our community and allows us to dedicate cr itical and limited emergency resources to those who are very sick. Who should be tested? A common question right now is, Why can't I get tested? The answer: Not everyone need s to be tested. Given the short supply of testing supplies and protective equipment for our health care workers, the CDC recommends that people who are hospitalized, healthcare worker who have COVID-19 symptoms, residents in nursing facilities or halfway communities or home health, or those who are high risk (older adults, chronic diseases, immunosuppressed) s hould be prioritized for testing. These recommendations may evolve to include more people ov er time, as this situation is evolving rapidly. It is not recommended to test individuals wh o do not have COVID-19 symptoms. What to do if you think you have been exposed to COVID-19? If you feel healthy but recently had close contact with a person known to have COVID-19, yo u need to self-quarantine. Follow the self-quarantine instructions listed below: ? Check your temperature twice a day ? Stay home for 14 days from the time of exposure and self-monitor for fever, cough, and sh ortness of breath. ? Contact your medical provider if your temperature is greater than 100.4 and you develop c ough or shortness of breath. ? If possible, stay away from people who are high-risk for getting very sick from COVID-19. Does this mean my family or other people I live with need to self-quarantine? Other members of the household are not required to self-quarantine, unless they have been t old by a medical professional to do so. If you develop symptoms and are suspected to have CO VID-19, members of the household will be classified as close contacts and will then need to be in self-quarantine. Please speak to your health care provider and/or health department fo r further instructions. What are the guidelines for home quarantine and home isolation? ? Restrict activities outside your home, except for seeking medical care. ? Do not go to work, another person's home, school or public areas. ? Do not use public transportation. ? Cover coughs and sneezes. ? Avoid close contact with household members. When this is not possible, stay at least 6 fe et from other people and wear a cloth face covering. During the COVD-19 pandemic, medical-gr alexsandra masks are reserved for healthcare workers. ? Use separate sleeping and bathroom/bathing facilities, if feasible. ? Wash your hands often with soap and water for at least 20 seconds. This is especially imp ortant after blowing your nose, coughing, or sneezing; going to the bathroom; and before eat ing or preparing your food. ? Use hand clip baker if soap and water are not available. Use an alcohol-based hand sanitiz er with at least 60% alcohol, covering all surfaces of your hands and rubbing them together until they feel dry ? Cover your mouth and nose with a tissue when you cough or sneeze. Throw away used tissues in a lined trash can. Wash your hands afterwards. ? Clean and disinfect high-touch surfaces in your sick room and bathroom with a house hold disinfectant. High-touch surfaces include phones, remote controls, counters, doorknobs, tabletops, bathroom fixtures, toilets, keyboards, and bedside tables. Let someone else uzma n and disinfect surfaces in common areas, but not your bedroom and bathroom. ? Avoid sharing personal household items (dishes, drinking glasses, cups, eating utensils, towels, or bedding) with other people or pets in your home. After using these items, they sh ould be washed thoroughly with soap and water or in the train announcer/washer. ? Call ahead before visiting your doctor. This will help the healthcare provider's office t eusebio steps to keep other people from getting infected or exposed. ? If you have been tested for COVID-19, stay home until your healthcare provider contacts y ou about your test results. When should I discontinue self-quarantine? If you have tested positive for COVID-19, you can leave home after these three things have happened: ? At least 3 days (72 hours) have passed since resolution of fever (temperature less than 1 00.0F or 37.8C) without the use of fever-reducing medications (e.g. Tylenol, Ibuprofen) AND ? At least 3 days of improvement in respiratory symptoms (e.g. cough, shortness of breath) AND ? At least 10 days have passed since symptoms first appeared If you have tested positive for COVID-19 and are retested, you can leave home after these t hree things have happened: ? Resolution of fever (temperature less than 100.0F or 37.8C) without the use of fever-redu cing medications (e.g. Tylenol, Ibuprofen) AND ? Improvement in respiratory symptoms (e.g. cough, shortness of breath) AND ? Negative test results of COVID-19 from at least two consecutive samples collected 24 hrs or more apart If you are waiting for COVID-19 test results or you are symptomatic but did not require mando ting, you can leave home after the following things have happened: ? At least 3 days (72 hours) have passed since resolution of fever (temperature less than 1 00.0F or 37.8C) without the use of fever-reducing medications (e.g. Tylenol, Ibuprofen) and at least 3 days of improvement in respiratory symptoms (e.g., cough, shortness of breath), a nd at least 10 days have passed since symptoms first appeared. OR ? Two negative test results received and at least 24 hours have passed since resolution of fever (temperature less than 100.0F or 37.8C) without the use of fever-reducing medications (e.g. Tylenol, Ibuprofen). How is COVID-19 treated? Most people with COVID-19 will recover on their own. There is no specific antiviral treatm ent recommended for COVID-19 at this time. People with COVID-19 should receive supportive ca re to help relieve symptoms. For severe cases, treatment should include care to support chandrika l organ functions. Additional Information For up-to-date information about coronavirus and the community public health response, visi t your local public health website. CDC: COVID-19: https://www.cdc.gov/coronavirus/2019-ncov/index.html [place] Coronavirus Advisory: https://www.[place].org/icpzkktb-qde-nfuymlhf/coron avirus-advisory Virtual Visits Available https://virtual.[place].org/ documented in this encounter Medications at Time of Discharge + + + +---------+ + + | Medication | Sig | Dispensed | Refills | Start | End Date | | | | | | Date | | + + + +---------+ + + | ascorbic acid | Take 500 mg by mouth | | 0 | | | | (VITAMIN C) 500 mg | Daily. | | | | 0 | | tablet | | | | | | + + + +---------+ + + | aspirin 325 mg | Take 650 mg by mouth | | 0 | | | | tablet | Daily. | | | | 0 | + + + +---------+ + + | bismuth | Take 15 mLs by mouth | | 0 | | | | subsalicylate | every 6 hours as | | | | 0 | | (PEPTO-BISMOL) 262 | needed for | | | | | | mg/15 mL suspension | Indigestion. | | | | | + + + +---------+ + + | calcium | Take 625 mg by mouth | | 0 | | | | polycarbophil (RA | Daily. | | | | 0 | | FIBER THERAPY) 625 | | | | | | | mg tablet | | | | | | + + + +---------+ + + | cholecalciferol | Take 2,000 Units by | | 0 | | | | (CHOLECALCIFEROL) | mouth Daily. | | | | 0 | | 2000 units TABS | | | | | | + + + +---------+ + + | Cholecalciferol | Take by mouth | | 0 | | | | (VITAMIN D-3) 2000 | Daily. | | | | 0 | | units CAPS | | | | | | + + + +---------+ + + | coenzyme Q10 100 | Take 300 mg by mouth | | 0 | | | | MG CAPS | Daily. | | | | 0 | + + + +---------+ + + | fish oil 1,000 mg | Take 1,000 mg by | | 0 | | | | capsule | mouth Daily. | | | | 0 | + + + +---------+ + + | | Take 1 tablet by | 20 | 0 | 12/14/19 | | | HYDROcodone-acetamin | mouth every 4 hours | tablet | | 20 | 0 | | ophen (NORCO) 5-325 | as needed for Pain. | | | | | | mg per tablet | | | | | | + + + +---------+ + + | ibuprofen (ADVIL, | Take 400 mg by mouth | | 0 | | | | MOTRIN) 200 mg | every 4 hours as | | | | 0 | | tablet | needed. | | | | | + + + +---------+ + + | loperamide | Take 2 mg by mouth 4 | | 0 | | | | (IMODIUM A-D) 2 MG | times daily as | | | | 0 | | tablet | needed for Diarrhea. | | | | | + + + +---------+ + + | Multiple | Take 1 tablet by | | 0 | | | | Vitamins-Minerals | mouth Daily. | | | | 0 | | ([facility] | | | | | | | PO) | | | | | | + + + +---------+ + + | ondansetron | Take 1 tablet by | 24 | 0 | 12/14/19 | | | (ZOFRAN ODT) 4 mg | mouth every 8 hours | tablet | | 20 | 0 | | disintegrating | as needed for | | | | | | tablet | Nausea. | | | | | + + + +---------+ + + | Vit-Fe | Take 1 tablet by | | 0 | | | | Fumarate-FA | mouth Daily. | | | | 0 | | ( COMPLETE) | | | | | | | 14-0.4 MG TABS | | | | | | + + + +---------+ + + documented as of this encounter H&P Notes Pepe Stone MD - 12/13/2019 2:01 PM PDTFormatting of this note might be different fr om the original. Pepe Stone MD Physician Specialty: Surgery H&P Signed Encounter Date: 12/09/2019 []Hide copied text []Hover for details Fátima Guzman is an 79 y.o. female. 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 Patient states she had an abnormality on the surface of her finger for quite a few years. Is been biopsied as benign over 10 years ago. Recently it showed so me changes and enlargement and her primary care physician was very concerned about it a [facility] h biopsy was done after referral to dermatology clinic was made this is revealed this to be a malignant melanoma currently. It has features that are show that it is 5 mm in depth, non ulcerated, no vent lymphovascular invasion, the only missing pieces I do not see a mitotic r ate but to 5 mm depth being the critical importance on a Breslow scale level. He was seen a t 1 of our hand surgeon who is referred here for evaluation of sentinel lymph node biopsy. In addition she was referred for sentinel lymph node biopsy by the medical oncology as well who she has seen here. The plan is she will lose the digit as part of the wide excision and my responsibility will be to identify the sentinel lymph node. No other significant health issues of importance. She had some recent diarrhea and weight loss which she accrues distr ess over the situation. She denies bleeding disorders clotting disorders inherited diseases . Denies any social history of alcohol or tobacco use. Past Medical History: Diagnosis Date Adverse effect of anesthesia Vomiting with spinal for her appendectomy, memory loss for 5 days after gallbladder, all ergic reaction to pepcid prior to toe surgery 2 para 2 Hypertension Low back pain Muscle strain Strain of muscle, fascia and tendon of lower back, initial encounter Viral meningitis 1976,1982, 1986 Weight loss Allergies: Allergies Allergen Reactions Demerol [Meperidine] Other (See Comments) Per pt makes her feel odd Pepcid [Famotidine] Other (See Comments) Cardiac arrest Active Problems: * No active hospital problems. * Blood pressure 168/89, pulse 89, temperature 36.4 C (97.6 F), weight 60.9 kg (134 lb 3. 2 oz), SpO2 99 %. Past Medical History: Diagnosis Date Adverse effect of anesthesia Vomiting with spinal for her appendectomy, memory loss for 5 days after gallbladder, all ergic reaction to pepcid prior to toe surgery 2 para 2 Hypertension Low back pain Muscle strain Strain of muscle, fascia and tendon of lower back, initial encounter Viral meningitis 1976,1982, 1986 Weight loss Past Surgical History: Procedure Laterality Date APPENDECTOMY CHOLECYSTECTOMY 1962 HYSTERECTOMY 2011 and Bladder sling KNEE SURGERY 1969 Bone spur removed Allergies Allergen Reactions Demerol [Meperidine] Other (See Comments) Per pt makes her feel odd Pepcid [Famotidine] Other (See Comments) Cardiac arrest Current Outpatient Medications on File Prior to Visit Medication Sig Dispense Refill ascorbic acid (VITAMIN C) 500 mg tablet Take 500 mg by mouth Daily. aspirin 325 mg tablet Take 650 mg by mouth Daily. calcium polycarbophil (RA FIBER THERAPY) 625 mg tablet Take 625 mg by mouth Daily. cholecalciferol (CHOLECALCIFEROL) 2000 units TABS Take 2,000 Units by mouth Daily. Cholecalciferol (VITAMIN D-3) 2000 units CAPS Take by mouth Daily. coenzyme Q10 100 MG CAPS Take 300 mg by mouth Daily. fish oil 1,000 mg capsule Take 1,000 mg by mouth Daily. Hyfytvnoicy-Xkrkboezi-Buo C-Mn (GLUCOSAMINE CHONDR 1500 COMPLX) CAPS Take 1 capsule by mouth Daily. ibuprofen (ADVIL, MOTRIN) 200 mg tablet Take 400 mg by mouth every 4 hours as needed. Multiple Vitamins-Minerals ( [facility] PO) Take 1 tablet by mouth Daily. Vit-Fe Fumarate-FA ( COMPLETE) 14-0.4 MG TABS Take 1 tablet by mouth D aily. Probiotic Product (ADVANCED PROBIOTIC) CAPS Take 1 capsule by mouth Daily. No current facility-administered medications on file prior to visit. 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 Social Needs Financial resource strain: Not on file Food insecurity Worry: Not on file Inability: Not on file Transportation needs Medical: Not on file Non-medical: Not on file Tobacco Use Smoking status: Former Smoker Quit date: 1995 Years since quittin.6 Smokeless tobacco: Never Used Substance and Sexual Activity Alcohol use: Yes Alcohol/week: 14.0 standard drinks Types: 7 Glasses of wine, 7 Standard drinks or equivalent per week Drug use: No Sexual activity: Never Lifestyle Physical activity Days per week: Not on file Minutes per session: Not on file Stress: Not on file Relationships Social connections Talks on phone: Not on file Gets together: Not on file Attends hindu service: Not on file Active member of club or organization: Not on file Attends meetings of clubs or organizations: Not on file Relationship status: Not on file Intimate partner violence Fear of current or ex partner: Not on file Emotionally abused: Not on file Physically abused: Not on file Forced sexual activity: Not on file Other Topics Concern Not on file Social History Narrative Not on file Review of Systems Constitutional: Negative for chills, diaphoresis, fever, malaise/fatigue and weight loss. HENT: Negative for congestion, ear pain, hearing loss, sore throat and tinnitus. Eyes: Negative for blurred vision, double vision and redness. Respiratory: Negative for cough, hemoptysis and wheezing. Cardiovascular: Negative for chest pain, claudication and leg swelling. Gastrointestinal: Negative for abdominal pain, blood in stool, constipation, diarrhea, hear tburn, melena, nausea and vomiting. Genitourinary: Negative for dysuria and urgency. Musculoskeletal: Negative for back pain and myalgias. Skin: Negative for itching and rash. Neurological: Negative for dizziness, loss of consciousness, weakness and headaches. Endo/Heme/Allergies: Does not bruise/bleed easily. Psychiatric/Behavioral: Negative for depression and substance abuse. The patient is not ner vous/anxious and does not have insomnia. Physical Exam Constitutional: General: She is not in acute distress. Appearance: She is well-developed. She is not diaphoretic. HENT: Head: Normocephalic and atraumatic. Eyes: General: No scleral icterus. Conjunctiva/sclera: Conjunctivae normal. Pupils: Pupils are equal, round, and reactive to light. Neck: Musculoskeletal: Normal range of motion and neck supple. Thyroid: No thyromegaly. Cardiovascular: Rate and Rhythm: Normal rate and regular rhythm. Heart sounds: Normal heart sounds. Pulmonary: Effort: Pulmonary effort is normal. No respiratory distress. Breath sounds: Normal breath sounds. No wheezing. Chest: Chest wall: No tenderness. Abdominal: General: Bowel sounds are normal. There is no distension. Palpations: Abdomen is soft. There is no mass. Tenderness: There is no abdominal tenderness. There is no guarding. Musculoskeletal: Normal range of motion. Lymphadenopathy: Cervical: No cervical adenopathy. Skin: General: Skin is warm and dry. Findings: No rash. Neurological: Mental Status: She is alert and oriented to person, place, and time. Cranial Nerves: No cranial nerve deficit. Psychiatric: Behavior: Behavior normal. Thought Content: Thought content normal. Judgment: Judgment normal. On the right first digit on the radial side since a 2+ centimeter sized melanotic lesion wi th evidence of prior punch biopsy there is no epitrochlear or axillary lymphadenopathy on ex am there is no supraclavicular or cervical lymphadenopathy. Assessment: Malignant melanoma right index finger with 5 mm of depth of penetration Plan: I had a fairly lengthy discussion with the patient regarding the plan for staging and the c ritical need for establishing a positive or negative sentinel lymph node. Advantages of kno wing this terms of outcomes and survival and potential adjuvant therapy were gone over in so me detail the technical mechanism of nuclear medicine injection mapping and actual details o f the biopsy were discussed in detail as well. Potential ramifications of a positive biopsy were discussed including the potential for a lymphadenectomy needed as well at a later date . Is also discussed was the fact that the lymph node biopsy needs to be performed prior to removal of the digit so that we can better establish the injection mapping and lymph node st atus prior to actually removing the digit. This can all be done on a single day and in the same operating setting. Informed consent is granted scheduling is been performed and we adalberto l take care of all the details with the patient in terms of setting this up. Pepe Stone MD 12/09/2019 1137 Office Visit on 12/09/2019 Routing History Detailed Report Note shared with patient documented in this e ncounter Miscellaneous Notes Plan of Karyna Vences RN - 12/14/2019 11:27 AM PDTPt stable at time of discharge . Pt is eating, ambulating and voiding without difficulty. Pain is under control. Dressings to right axilla and right index finger incisions are clean and dry; no bleeding or drainage. Discharge instructions given and reviewed with pt. All questions answered. Local drug take back flyer given to patient in discharge folder. Pt discharged home via private vehicle wit h . lan of Shawanda Ventura RN - 12/14/2019 3:20 AM PDT Problem: Bleeding (Surgery Nonspecified) Goal: Absence of Bleeding Outcome: Ongoing, progressing Dressing on incisions remain clean, dry, and intact x2. Problem: Infection (Surgery Nonspecified) Goal: Absence of Infection Signs/Symptoms Outcome: Ongoing, progressing No s/s of infection. VS remain stable. Problem: Pain (Surgery Nonspecified) Goal: Acceptable Pain Control Outcome: Ongoing, progressing Pt pain controlled at start of shift; pt now complaining of increased pain. Pt is currentl y being titrated up on pain medication per MAR. p Note - David Gomez MD - 12/13/2019 5:45 PM [facility] Pt. Name/Age/: Fátima Guzman 79 y.o. 1940 Med. Record Number: [id number] Date of admission: 12/13/2019 Date of Operation/Procedure: 12/13/2019 Pre-operative Diagnosis: Right index finger melanoma Post-operative Diagnosis: same Procedure(s): Right index finger ray resection, CPT 74925 Surgeon: David Gomez MD Dope Firer(s): None Anesthesia: General LMA anesthesia Estimated Blood Loss: Minimal Other: Specimens: Right index finger Indications: See pre-operative history and physical Findings: As above Complications: None Description of Procedure: The patient was brought into the operating room and a multidisci plinary timeout occurred to ensure proper patient and laterality, which was the right side. Please see Dr. Stone's note regarding the sentinel lymph node dissection. After this diss ection was complete, I then performed the right index finger ray resection portion of the ca se. The right upper extremity was elevated using gravity exsanguination and a forearm tournique t was inflated to 250 mmHg. I used a tennis racquet incision and ellipsed out the index fin vazquez and sending this off to Pathology. I then resected the digital nerves as far proximally as possible and cauterized the arteries. I performed tenotomies to the flexor and extensor tendons and then skeletonized the index finger metacarpal leaving a small remnant where th e wrist extensor attached. A sagittal saw was used and the edges were beveled. I then perf ormed a myodesis. I was able to get a portion of the first interosseous over the bony end t o provide more of a padding and then I copiously irrigated the wound and closed the wound in layers. A soft dressing was applied. Tourniquet was released. The patient was taken to [facility] recovery room in stable condition. All counts correct. Condition: stable ri ef Op Note - David Gomez MD - 12/13/2019 5:44 PM PDT BRIEF OPERATIVE NOTE [facility] Pt. Name/Age/: Fátima Guzman 79 y.o. 1940 Med. Record Number: [id number] Date of admission: 12/13/2019 Date of Operation/Procedure: 12/13/2019 Pre-operative Diagnosis: Right index finger melanoma Post-operative Diagnosis: same Procedure(s): Right index finger ray resection, CPT 66234 Surgeon: David Gomez MD Dope Firer(s): None Anesthesia: General LMA anesthesia Estimated Blood Loss: Minimal Other: Specimens: Right index finger Indications: See pre-operative history and physical Findings: As above Complications: None Description of Procedure: See operative note Condition: stable Electronically signed by: David Gomez MD, 12/13/2019, 5:44 PM PDTElectronically donny d by David Gomez MD at 12/13/2019 5:45 PM PDTOp Note - Pepe Stone MD - 0 5:08 [facility] Operative Note Pre-operative Diagnosis: Malignant melanoma index finger right hand Post-operative Diagnosis: same Procedure(s): Right axillary sentinel lymph node mapping and biopsy Surgeon: Pepe Stone MD Dope Firer(s): Anesthesia: General endotracheal anesthesia Estimated Blood Loss: Minimal Other: Not applicable Indications: See pre-operative history and physical Findings: Complications: None Description of Procedure: Patient placed supine on the operative was in general anesthesia the right arm and hand and axilla and chest wall were prepped and draped in block. Prior to prepping and draping isosulfan blue was injected by me into the bed of the tumor in the fin vazquez massaged for the appropriate time. We then used the neoprobe 2000 and establish transcu taneous readings of the right axilla to isolate the region of the lymph node. Once prepped and draped a suitable safety pause accomplished. We made an incision at the marked area of the lymph node in the axilla and transversely. We carried into the soft tissues sharp disse ction in the axillary tissues proper. Using the neoprobe 2000 behind and on the region of t he maximum activity. We were able to unroofed an obvious area where the activity was and in vivo recordings were made. We extracted this area parotid out and sharply dissected it enrrique leigha was blue without and with noted infiltration of isosulfan blue once we were able to ext ract this region the readings ex vivo were very hot and overall well over 4000. Background readings in the axilla itself was 0 at the completion of this. This was labeled sentinel ly mph node 1 and was sent off in formalin for pathologic evaluation. Hemostasis was then joe lized with cautery the wound closed in 2 layers of 3-0 Vicryl for Monocryl suture. At that point Dr. Gomez took over to handle the primary tumor in the index finger of the right hand Condition: stable Pepe Stone MD 12/13/2019 5:08 PM PDT documented in this e ncounter Plan of Treatment +--------+---------+ + + + | Date | Type | Specialty | Care Team | Description | +--------+---------+ + + + | 01/31/ | Office | General Surgery | Pepe Stone, | | 2019 | Visit | | [address] | | | | | | [address] [place] | | | | | | [place] [address] | | | | | | [phone] | | | | | | | | +--------+---------+ + + + | 02/01/ | Office | Orthopedic Surgery | David Gomez, | | | 2019 | Visit | | [address] | | | | | | [place] [address] | | | | | | [phone] | | | | | | | | +--------+---------+ + + + documented as of this encounter Procedures + +--------+ + + + | Procedure Name | Priori | Date/Time | Associated Diagnosis | Comments | | | ty | | | | + +--------+ + + + | SURGICAL PATHOLOGY | Routin | 12/13/2019 | Malignant melanoma | Results for this | | EXAM | e | 4:57 PM | of finger of right | procedure are in the | | | | PDT | hand (HCC) | results section. | + +--------+ + + + | BIOPSY | | 12/13/2019 | Malignant melanoma | | | | | 4:11 PM | of finger of right | | | | | PDT | hand (HCC) | | + +--------+ + + + +---+--------+ | | | | | Specia | | | l | | | Needs | | | Right | | | | | | axilla | | | ry | | | sentin | | | el | | | lymph | | | node. | | | Need | | | nuc | | | med | | | inject | | | ion | | | and | | | mappin | | | g-Rode | | | y in | | | nuc | | | med | | | inform | | | ed. | | | 8.20-s | | | o Nuc | | | med | | | appt | | | made | | | 8.20-s | | | o | | | (confi | | | rmed | | | time | | | w/Rosy | | | nuc | | | med. | | | 8.24)- | | | so | +---+--------+ + +---+ + +---+ | BIOPSY LYMPH NODE | | 12/13/2019 | Malignant melanoma | | | GENERAL | | 4:11 PM | of finger of right | | | | | PDT | hand (HCC) | | + +---+ + +---+ +---+--------+ | | | | | Specia | | | l | | | Needs | | | Right | | | | | | axilla | | | ry | | | sentin | | | el | | | lymph | | | node. | | | Need | | | nuc | | | med | | | inject | | | ion | | | and | | | mappin | | | g-Rode | | | y in | | | nuc | | | med | | | inform | | | ed. | | | 8.20-s | | | o Nuc | | | med | | | appt | | | made | | | 8.20-s | | | o | | | (confi | | | rmed | | | time | | | w/Rosy | | | nuc | | | med. | | | 8.24)- | | | so | +---+--------+ documented in this encounter Results Surgical Pathology Exam (12/13/2019 4:57 PM PDT) + + | Specimen | + + | Tissue - Lymph node | | sample (specimen) | + + | Soft tissue sample | | (specimen) - Entire | | articular surface, | | interphalangeal, of | | phalanx of index | | finger (body | | structure) | + + + ---+ + | Narrative | Performed At | + ---+ + | THIS IS | [facility] | | AN ADDENDUM REPORT SPECIMEN(S): A FINGER, FORE/INDEX, RT SPECIMEN | [facility] | | SOURCE:A. FINGER, FORE/INDEX, RT CLINICAL HISTORY:C43.61 (malignant | | | melanoma of finger of right hand) FINAL PATHOLOGIC DIAGNOSIS:Finger, | | | right index, amputation:- Malignant melanoma with the following | | | features:- Procedure: Excision (amputation).- Tumor site: | | | Right index finger.- Clinical size: 4.3 x 2.6 cm.- Histologic | | | type: Acral lentiginous type.- Ulceration: Not identified.- | | | Breslow thickness: 3.5 mm.- Yoel level: V.- Margins:- | | | Skin and soft-tissue margin: Uninvolved by invasive melanoma or | | | melanoma in situ.- Distance of melanoma in situ and melanoma from | | | closest lateral margin: 2.8 cm.- Lymph-vascular invasion: Not | | | identified.- Perineural invasion: Not identified.- Growth phase: | | | Vertical.- Mitotic rate: Four mitoses per mm2.- Tumor | | | infiltrating lymphocytes: Absent.- Tumor regression: Not | | | identified.- Microsatellitosis: Not identified.- Macroscopic | | | satellite nodules: Not identified.- Lymph nodes (includes | | | information from case [id number]).- Number of sentinel lymph nodes | | | examined: 3. - Total number of lymph nodes examined: 3.- | | | Number of lymph nodes with metastasis: 1.- Pathologic stage | | | classification: pT3a N1a. COMMENT:This case received consultation by | | | a dermatopathologist. BRP:[facility]:C1NR MICROSCOPIC EXAMINATION:Histologic | | | sections of all submitted blocks are examined by light microscopy. | | | These findings, together with the gross examination, support the | | | pathologic diagnosis. GROSS DESCRIPTION:The specimen, labeled "Wellington, | | | Fátima, finger, fore/index, right," is received in formalin and | | | consists of a 10.3 x 5.6 x 3.2 cm disarticulated right index finger. | | | The specimen has a diffuse blue dyediscoloration. The skin is pale | | | pink and wrinkled with a smooth, firm nail. Present on the dorsal | | | and lateral aspect of the finger is a 4.3 x 2.6 cm ill-defined | | | gallegos-brown variegated macule with oneraised area that is 1.2 x 0.7 x | | | 0.3 cm. This macule is 2.8 cm from the closest skin and soft tissue | | | resection margin. Sectioning through the macular reveals no gross | | | involvement of the underlyingsoft tissue or bone. The soft tissue | | | resection margin is entirely submitted for histologic examination. | | | Sleeve Maker sections are submitted in four cassettes. Cassette | | | summary:(A1 and A4) skin and soft tissue resection margin, | | | shave(A2) macule to uninvolved skin(A3) raised area of macule.FB | | | (under the direct supervision of a pathologist) The gross for this | | | case was discussed with Dr. Arteaga. The Gross Description was prepared | | | using a voice recognition system. The report was reviewed for | | | accuracy; however, sound-alike word errors, addition and/or deletions | | | may occur. If there is anyquestion about this report, please contact | | | Client Services. PERFORMING LABORATORY:The technical component was | | | performed by [facility], [address] [place] [address] | | | (Corporate Pilot: Grace Godinez MD; CLIA# [id number]).Professional | | | [facility] | | | [address] [address] (Medical | | | Director: Donnie Arteaga M.D.; CLIA#: [id number]). ADDITIONAL | | | NOTES:The FDA-approved leon(r) 4800 BRAF V600 Mutation Test is an in | | | vitro diagnostic device (IVD) real-time PCR assay designed for the | | | qualitative detection of the V600E ([id number]) mutation in | | | melanomatissue. The test is based on two processes: (1) genomic DNA | | | extraction from formalin-fixed, paraffin-embedded tissue (FFPET); (2) | | | PCR amplification and detection of target DNA. Some non-V600E | | | mutations (V600K, V600D, and V600E2), may be detected by the assay. | | | In addition, tumor samples are non-homogenous and data from a sample | | | of tumor may not be concordant with data fromother sections of the | | | same tumor. Tumor sample may also contain non-tumor tissue, and DNA | | | from these areas would not be expected to contain a BRAF mutation. In | | | instances where the frequency of atarget mutation is very low with | | | respect to the wild-type background (<5%), the assay may fail to | | | detect a mutation, leading to a false-negative result. PERFORMING | | | LABORATORY:The technical and professional components of the BRAF V600 | | | mutation test were performed at [facility], [address] | | | [address] [place] [address] (Corporate Pilot: Harsha Nettles MD; | | | CLIA#[id number]). REASON FOR ADDENDUM:This case is addended for the | | | addition of BRAF Mutation Analysis results. ADDENDUM PATHOLOGIC | | | DIAGNOSIS:[id number], [id number], FORE/INDEX, RT: BRAF V600 Mutation | | | Not Detected. See comments. ADDENDUM COMMENTS:A BRAF V600 mutation was | | | not detected in this patient's specimen using the FDA-approved | | | leon(r) 4800 BRAF V600 IVD test. In vitro experiments have | | | demonstrated increased cell proliferation in BRAFwild-type cells that | | | are exposed to BRAF inhibitors; therefore vemurafenib (Zelboraf(r)) is | | | not indicated for treatment of patients with wild-type BRAF melanoma | | | (Zelboraf(r) (vemurafenib) [packageinsert]. [employer] [facility], [facility] | | | [place], [place]; 2016) This assay is not intended to diagnose any | | | particular type of cancer, but as an aid to clinicians, is intended to | | | be used as an adjunct to otherpredictive factors to select eligible | | | patients for therapy.ADDENDUM CLINICAL HISTORY: Client Request: BRAF | | | Mutation Analysis requested by Dr. Chas Baird, per hospital | | | protocol. ADDENDUM MICROSCOPIC EXAMINATION:An HE slide for each case | | | is reviewed by a board certified pathologist to confirm the cells of | | | interest are present in adequate numbers to proceed with testing and | | | to identify areas formacrodissection. If the cells are not present in | | | adequate numbers, testing is not performed. ADDENDUM GROSS | | | DESCRIPTION:DNA was extracted from 3 unstained slides from | | | paraffin tissue block A3, numbered [id number], belonging to patient | | | FÁTIMA GUZMAN. Diagnostician: Chas Baird | | | MDPathologistDiagnostician: Gisel Robertson | | | MDPathologistElectronically Signed 12/29/2019 | | |predictive factors to select eligible patients for therapy. | | |ADDENDUM CLINICAL HISTORY: | | | | | |Client Request: BRAF Mutation Analysis requested by Dr. Chas Baird, per hospital prot ocol. | | | | | |ADDENDUM MICROSCOPIC EXAMINATION: | | |An HE slide for each case is reviewed by a board certified pathologist to confirm the cells of interest are present in adequate numbers to proceed with testing and to identify areas f or | | |macrodissection. If the cells are not present in adequate numbers, testing is not performed . | | | | | |ADDENDUM GROSS DESCRIPTION: | | |DNA was extracted from 3 unstained slides from paraffin tissue block A3, numbered [id number], belonging to patient FÁTIMA GUZMAN. 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) | + + documented in this encounter Administered Medications + +--------+ +--------+------+------+ | Medication Order | MAR | Action | Dose | Rate | Site | | | Action | Date | | | | + +--------+ +--------+------+------+ | acetaminophen (TYLENOL) tablet | Given | 12/14/19 | 650 mg | | | | 650 mg 650 mg, Oral, EVERY 4 | | 20 6:47 | | | | | HOURS PRN, Pain, Fever, Starting | | AM PDT | | | | | 12/13/19 at 1824, | | | | | | | Post-op/Phase II | | | | | | + +--------+ +--------+------+------+ +-------+ +--------+---+---+ | Given | 12/14/19 | 650 mg | | | | | 20 3:01 | | | | | | AM PDT | | | | +-------+ +--------+---+---+ | Given | 12/13/19 | 650 mg | | | | | 20 6:41 | | | | | | PM PDT | | | | +-------+ +--------+---+---+ +---+---+ | | | +---+---+ + +---------+ +---+ +---+ | balanced electrolytes in water | New Bag | 12/13/19 | | 50 mL/hr | | | (PLASMALYTE-148/NORMOSOL-R) | | 20 4:13 | | | | | infusion at 50 mL/hr, | | PM PDT | | | | | Intravenous, CONTINUOUS, Starting | | | | | | | 12/13/19 at 1430, | | | | | | | Recovery/Phase I | | | | | | + +---------+ +---+ +---+ +---+---+ | | | +---+---+ + +-------+ +--------+---+---+ | bupivacaine (PF) (MARCAINE) | Given | 12/13/19 | 10 mLs | | | | 0.5% injection PRN, Starting Tue | | 20 5:35 | | | | | 12/13/19 at 1735, Intra-op | | PM PDT | | | | + +-------+ +--------+---+---+ +---+---+ | | | +---+---+ + +-------+ +--------+---+---+ | bupivacaine 0.5%-EPINEPHrine | Given | 12/13/19 | 10 mLs | | | | 1:200,000 (PF) injection PRN, | | 20 5:01 | | | | | Starting 12/13/19 at 1701, | | PM PDT | | | | | Intra-op | | | | | | + +-------+ +--------+---+---+ +---+---+ | | | +---+---+ + +---------+ +-----+-------+---+ | ceFAZolin in dextrose (ANCEF) | New Bag | 12/14/19 | 2 g | 200 | | | IVPB 2 g 2 g, Intravenous, | | 20 10:24 | | mL/hr | | | Administer over 30 Minutes, EVERY | | AM PDT | | | | | 8 HOURS INTERVAL, First dose on | | | | | | | 12/14/19 at 0230, For 2 doses, | | | | | | | Start 8 hours after previous | | | | | | | dose. Last dose to be given | | | | | | | within 24 hours of surgery end | | | | | | | time. Keep in refrigerator., | | | | | | | Post-op/Phase II, Indications: | | | | | | | Surgical Prophylaxis | | | | | | + +---------+ +-----+-------+---+ +---------+ +-----+-------+---+ | New Bag | 12/14/19 | 2 g | 200 | | | | 20 2:09 | | mL/hr | | | | AM PDT | | | | +---------+ +-----+-------+---+ + +---+ | | | + +---+ | coenzyme Q10 capsule 300 mg | | | 300 mg, Oral, DAILY, First dose | | | on 12/14/19 at 0900 | | + +---+ | | | + +---+ + +-------+ +--------+---+---+ | fentaNYL (PF) injection 25-50 | Given | 12/13/19 | 25 mcg | | | | mcg 25-50 mcg, Intravenous, | | 20 6:38 | | | | | EVERY 5 MIN PRN, Pain, Initial | | PM PDT | | | | | postop medication for URGENT PAIN | | | | | | | OR ESCALATING PAIN, Starting Tue | | | | | | | 12/13/19 at 1743, For 4 doses, | | | | | | | First dose must be lowest dose. | | | | | | | Use Pasero Sedation Scale. | | | | | | | [Opioid tolerant = One week or | | | | | | | longer, lobera-ksj-wmpqo use of | | | | | | | at least the following DAILY | | | | | | | dose: 60mg oral morphine, 60mg | | | | | | | oral hydrocodone, 30mg oral | | | | | | | oxycodone, 8mg oral | | | | | | | hydromorphone, fentanyl patch | | | | | | | 25mcg/hr, or equivalent dose of | | | | | | | another opioid], Recovery/Phase I | | | | | | + +-------+ +--------+---+---+ +-------+ +--------+---+---+ | Given | 12/13/19 | 25 mcg | | | | | 20 6:19 | | | | | | PM PDT | | | | +-------+ +--------+---+---+ | Given | 12/13/19 | 25 mcg | | | | | 20 6:08 | | | | | | PM PDT | | | | +-------+ +--------+---+---+ +---+---+ | | | +---+---+ + +-------+ +---------+---+ + | isosulfan blue (LYMPHAZURIN) 1% | Given | 12/13/19 | 1.5 mLs | | Hand-Rig | | injection PRN, Starting Thu | | 20 5:12 | | | ht | | 12/13/19 at 1712, Intra-op | | PM PDT | | | | + +-------+ +---------+---+ + +---+---+ | | | +---+---+ + +-------+ +------+---+---+ | ondansetron (ZOFRAN) injection | Given | 12/13/19 | 4 mg | | | | 4 mg 4 mg, Intravenous, EVERY 4 | | 20 6:02 | | | | | HOURS PRN, Nausea, Vomiting, | | PM PDT | | | | | Starting 12/13/19 at 1743, | | | | | | | Recovery/Phase I | | | | | | + +-------+ +------+---+---+ +---+---+ | | | +---+---+ + +-------+ +------+---+---+ | oxyCODONE (ROXICODONE) tablet | Given | 12/14/19 | 5 mg | | | | 2.5-10 mg 2.5-10 mg, Oral, EVERY | | 20 9:58 | | | | | 3 HOURS PRN, Pain, Starting Tue | | AM PDT | | | | | 12/13/19 at 2001, First dose must | | | | | | | be the lowest dose, can titrate | | | | | | | to effective dose by repeat of | | | | | | | lowest dose every 60 minutes prn | | | | | | | pain, may not exceed maximum dose | | | | | | | ordered per interval. Use Pasero | | | | | | | Sedation Scale., Post-op/Phase | | | | | | | II | | | | | | + +-------+ +------+---+---+ +-------+ +--------+---+---+ | Given | 12/14/19 | 5 mg | | | | | 20 6:47 | | | | | | AM PDT | | | | +-------+ +--------+---+---+ | Given | 12/14/19 | 2.5 mg | | | | | 20 3:01 | | | | | | AM PDT | | | | +-------+ +--------+---+---+ +---+---+ | | | +---+---+ + +-------+ +------+---+---+ | oxyCODONE (ROXICODONE) tablet 5 | Given | 12/13/19 | 5 mg | | | | mg 5 mg, Oral, ONCE PRN, Pain, | | 20 6:16 | | | | | Starting 12/13/19 at 1743, For | | PM PDT | | | | | 1 dose, If able to take oral | | | | | | | medication., Recovery/Phase I | | | | | | + +-------+ +------+---+---+ +---+---+ | | | +---+---+ documented in this encounter
--- OUTSIDE RECORDS SUMMARY | ~2020-01-31 | XMS | Encounter Summary ---
Demographics + + + | Address | [address] | | | [place] [address] | + + + | Home Phone | | + + + | Preferred Language | Unknown | + + + | Marital Status | | + + + | Alevism Affiliation | 1077 | + + + | Race | White | + + + | Ethnic Group | Not or | + + + Author + + + | Author | [facility] | | | and [place] | + + + | Organization | [facility] | | | and [...] [place] | | | | | [address] | | + + + + + | Todd Paris | ECON | Unknown | | + + + + + Care Team Providers + +------+ + | Care Strategic Accounts Manager Name | Role | Phone | + +------+ + | Lamont Santoyo MD | PCP | | + +------+ + Reason for Referral Evaluate & Treat (Routine) + + + + + + + | Status | Reason | Specialty | Diagnoses / | Referred By | Referred To | | | | | Procedures | Contact | Contact | + + + + + + + | Authorized | Specialty | Occupational | Diagnoses | Patricia | [facility] | | | Services | Therapy | Malignant | David Elmore MD | HOSPITAL | | | Required | | melanoma of | [address] | PHYSICAL | | | | | right upper | [address] | THERAPY [address] | | | | | extremity | [place], [place] | [place] | | | | | including | [address] | [place], [place] | | | | | shoulder | Phone: | [phone] | | | | | ([facility]) | [phone] | Phone: | | | | | Finger mass, | Fax: | [phone] | | | | | right | [phone] | Fax: | | | | | | | [phone] | + + + + + + + Reason for Visit + + + | Reason | Comments | + + + | Post-op Exam | 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 | | | (HCC) | + + + Surgery OP (Urgent) + +--------+ + + + + | Status | Reason | Specialty | Diagnoses / | Referred By | Referred To | | | | | Procedures | Contact | Contact | + +--------+ + + + + | Authorized | | Orthopedic | Diagnoses | Abel | Patricia, | | | | Surgery | Malignant | DO Jefe | David Elmore MD | | | | | melanoma of | [address] | [address] | | | | | right upper | [address] | [address], | | | | | limb, | [place], [place] | [place] [address] | | | | | including | [address] | Phone: | | | | | shoulder | Phone: | [phone] | | | | | ([facility]) | [phone] | Fax: | | | | | | Fax: | [phone] | | | | | | [phone] | | + +--------+ + + + + Encounter Details +--------+---------+ + + + | Date | Type | Department | Care Team | Description | +--------+---------+ + + + | 12/21/ | Office | [facility] | David Gomez, | Malignant melanoma | | 2020 | Visit | [facility] | [address] | of right upper | | | | [facility] | [place] [address] | extremity including | | | | [address] | [phone] | shoulder (HCC) | | | | [place], [place] | | (Primary Dx); Finger | | | | [address] | | mass, right | | | | [phone] | | | +--------+---------+ + + + [...] + + + | Blood Pressure | - | - | | + + + + + | Pulse | 82 | 12/22/2019 1:36 PM | | | | | PDT | | + + + + + | Temperature | - | - | | + + + + + | Respiratory Rate | - | - | | + + + + + | Oxygen Saturation | 99% | 12/22/2019 1:36 PM | | | | | PDT | | + + + + + | Inhaled Oxygen | - | - | | | Concentration | | | | + + + + + | Weight | 61.7 kg (136 lb) | 12/22/2019 1:36 PM | | | | | PDT | | + + + + + | Height | 171.5 cm (5' 7.5") | 12/22/2019 1:36 PM | | | | | PDT | | + + + + + | Body Mass Index | 20.99 | 12/22/2019 1:36 PM | | | | | PDT | | + + + + + documented in this encounter Progress Notes David Gomez MD - 12/22/2019 1:35 PM PDTFormatting of this note might be different fro m the original. [facility]: Orthopedic Surgery Patient Name:Fátima Paris AGE: 79 y.o. :1940 CHIEF COMPLAINT: Post-op Exam (Malignant melanoma of right upper extremity including should er (HCC)) HPI HISTORY OF PRESENT ILLNESS Ms. Paris is a very pleasant 79-year-old female who is status post right index finger ray r esection due to malignant melanoma. She is doing well with some phantom pain today, but no s igns or symptoms of infection. REVIEW OF SYSTEMS Review of Systems Past Medical History: Diagnosis Date Acid reflux disease Chronic diarrhea Disc disorder 2 para 2 Low back pain Malignant melanoma (HCC) Muscle strain Seasonal allergies Strain of muscle, fascia and tendon of lower back, initial encounter Viral meningitis 1976,1982, 1986 Weight loss Past Surgical History: Procedure Laterality Date APPENDECTOMY CHOLECYSTECTOMY 1963 HYSTERECTOMY 2011 and Bladder sling KNEE SURGERY 1970 Bone spur removed LYMPH NODE BIOPSY Right 12/13/2019 Procedure: BIOPSY LYMPH NODE GENERAL; Surgeon: Pepe Stone MD; [facility] [facility] [place] OTHER SURGICAL HISTORY Right 12/13/2019 Procedure: EXCISION LESION HAND / FINGER, EXCISIONAL BIOPSY RIGHT INDEX FINGER RAY RESECTI ON; Surgeon: David Gomez MD; [facility] [facility] Allergies Allergen Reactions Pepcid [Famotidine] Anaphylaxis Cardiac arrest Demerol [Meperidine] Other (See Comments) Per pt makes her feel odd Prior to Admission medications Medication Sig Start Date End Date Taking? Authorizing Provider ascorbic acid (VITAMIN C) 500 mg tablet Take 500 mg by mouth Daily. Historical Provider, aspirin 325 mg tablet Take 650 mg by mouth Daily. Historical Provider, bismuth subsalicylate (PEPTO-BISMOL) 262 mg/15 mL suspension Take 15 mLs by mouth every 6 h ours as needed for Indigestion. Historical Provider, calcium polycarbophil (RA FIBER THERAPY) 625 mg tablet Take 625 mg by mouth Daily. Histo rical ProviderMD cholecalciferol (CHOLECALCIFEROL) 2000 units TABS Take 2,000 Units by mouth Daily. Histo aurelianoal ProviderMD Cholecalciferol (VITAMIN D-3) 2000 units CAPS Take by mouth Daily. Historical Provider, coenzyme Q10 100 MG CAPS Take 300 mg by mouth Daily. Historical Provider, fish oil 1,000 mg capsule Take 1,000 mg by mouth Daily. Historical Provider, HYDROcodone-acetaminophen (NORCO) 5-325 mg per tablet Take 1 tablet by mouth every 4 hours as needed for Pain. 12/14/19 David Gomez MD ibuprofen (ADVIL, MOTRIN) 200 mg tablet Take 400 mg by mouth every 4 hours as needed. Co storical ProviderMD loperamide (IMODIUM A-D) 2 MG tablet Take 2 mg by mouth 4 times daily as needed for Diarrhe a. Historical Provider, Multiple Vitamins-Minerals ( MACULAR HEALTH PO) Take 1 tablet by mouth Daily. Historic al ProviderMD ondansetron (ZOFRAN ODT) 4 mg disintegrating tablet Take 1 tablet by mouth every 8 hours as needed for Nausea. 12/14/19 David Gomez MD Vit-Fe Fumarate-FA ( COMPLETE) 14-0.4 MG TABS Take 1 tablet by mouth Daily . Historical Provider, Family History Problem Relation Age of Onset Alzheimer's disease Mother TIA Other Breast cancer Neg Hx Malig hypertherm Neg Hx Social History Socioeconomic History Marital status: Spouse [...] file Gets together: Not on file Attends caodaism service: Not on file Active member of [...] file Social History Narrative Not on file PHYSICAL EXAM Vital Signs: Pulse 82 | Ht 1.715 m (5' 7.5") | Wt 61.7 kg (136 lb) | SpO2 99% | BMI 20.99 kg/m Physical Exam Ortho Exam Wound healed Neurovascularly intact , Motor and sensation grossly intact Brisk cap refill 2+ pulses No signs of complication Some throbbing sensations associated with phantom pain, which she states that she can still slightly feel the index finger PROBLEM LIST Encounter Diagnoses Name Primary? 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 I have spoken wi th Dr. Jones who will coordinate her oncologic care given the fact that the sentinel lymph no elena have come back as positive and she will see Dr. Stone for potential discussion of axill german lymph node dissection and review of lymph node pathology. RTC in 4 weeks @ASSESSMENTPLANEND@ Primary Care Physician: MD David Garcia MD Documented by Barbra. Tdocumented in this encounter Plan of Treatment +--------+---------+ + + + | Date | Type | Specialty | Care Team | Description | +--------+---------+ + + + | 01/31/ | Office | General Surgery | Pepe Stone, | | 2019 | Visit | | MD Fox [place] | | | | | | [address] [facility], | | | | | | [place] [address] | | | | | | [phone] | | | | | | | | +--------+---------+ + + + | 02/01/ | Office | Orthopedic Surgery | David Gomez, | 2019 | Visit | | [address] | | | | | | [place] [address] | | | | | | [phone] | | | | | | | | +--------+---------+ + + + + + +--------+ + + | Name | Type | Priori | Associated Diagnoses | Order Schedule | | | | ty | | | + + +--------+ + + | Ambulatory Referral | Outpatient | Routin | Malignant melanoma | Ordered: 12/22/2019 | | to [facility] | Referral | e | of right upper | | | Occupational Therapy | | | extremity including | | | | | | shoulder (HCC) | | | | | | Finger mass, right | | + + +--------+ + + documented as of this encounter Visit Diagnoses + + | Diagnosis | + + | 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
--- OUTSIDE RECORDS SUMMARY | ~2020-01-31 | XMS | Encounter Summary ---
Demographics + + + | Address | [address] | | | [place] [address] | + + + | Home Phone | | + + + | Preferred Language | Unknown | + + + | Marital Status | | + + + | Faith Affiliation | [phone] | + + + | Race | White | + + + | Ethnic Group | Not or | + + + Author + + + | Author | [facility] | | | and [place] | + + + | Organization | [facility] | | | [...] [place] | | | | | [id number] | | + + + + + | Todd Guzman | ECON | Unknown | | + + + + + Care Team Providers + +------+ + | Care Loader Engineer Name | Role | Phone | + +------+ + | Lamont Santoyo MD | PCP | | + +------+ + Reason for Visit + + + | Reason | Comments | + + + | Syncope | | + + + | Shortness of Breath | | + + + | Diarrhea (Adult) | | + + + Encounter Details +--------+ + + + + | Date | Type | Department | Care Team | Description | +--------+ + + + + | 01/13/ | Hospital | [facility] | Pepe Trammell, | Pulmonary embolism, | | 2019 | Encounter | [facility] | MD [address] | bilateral (HCC) | | | | [address] | [place] [address] | (Primary Dx); | | | | [place], [place] | [phone] | Shortness of breath; | | | | [address] | | Syncope, | | | | [phone] | Gatito Quick MD | unspecified syncope | | | | | [address] | type; Acute | | | | | [place] [address] | pulmonary embolism | | | | | [phone] | with acute cor | | | | | | pulmonale, | | | | | Ivan Escamilla, DO [address] | [address] | | | | | [address] | pulmonary embolism | | | | | [place] [address] | type (HCC); | | | | | [phone] | Malignant melanoma | | | | | | of right upper | | | | | | extremity including | | | | | | shoulder (HCC) | +--------+ + + + + Social History + +-------+ +--------+ + | Tobacco Use | Types | Packs/Day | Years | Date | | | | | Used | | + +-------+ +--------+ + | Former Smoker | | | | Quit: 1995 | + +-------+ +--------+ + + +---+---+---+ [...] + + + | Blood Pressure | 135/78 | 01/14/2020 8:00 AM | | | | | PDT | | + + + + + | Pulse | 113 | 01/14/2020 8:00 AM | | | | | PDT | | + + + + + | Temperature | 36.7 C (98 F) | 01/14/2020 8:00 AM | | | | | PDT | | + + + + + | Respiratory Rate | 18 | 01/14/2020 8:00 AM | | | | | PDT | | + + + + + | Oxygen Saturation | 98% | 01/14/2020 8:00 AM | | | | | PDT | | + + + + + | Inhaled Oxygen | - | - | | | Concentration | | | | + + + + + | Weight | - | - | | + + + + + | Height | - | - | | + + + + + | Body Mass Index | - | - | | + + + + + documented in this encounter Discharge Summaries Pedro Pires MD - 01/14/2020 1:31 PM PDTFormatting of this note might be different f rom the original. [facility] Service: Hospitalist Discharge Summary Pt: Fátima Guzman AGE/SEX: 79 y.o. 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 * Procedures: * No surgery found * BRIEF HISTORY OF PRESENTATION and HOSPITAL COURSE: H&P by Dr. Ivan Escamilla, "The patient is a 79 y.o. 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 Patient rep orts that on she had episodes of lightheadedness and dizziness periodically, on Thu these episodes continued, however Thursday evening at 11:00 patient was in the bathroom [place] d an episode of syncope, likely her was there and caught her so she did not sustain any trauma. EMS was called and patient was found to be significantly hypoxic and hypotensiv e. Patient was taken to [facility] emergency department where she was worked up and foun d to have pulmonary embolus bilaterally with significant clot burden. While there patient r equired 100% FiO2 on a nonrebreather to maintain oxygen saturation above 90%. Patient was g iven a dose of subcutaneous Lovenox and subsequently patient was transferred to [facility] ER, after which patient improved and was changed to Ventimask at 5 or 6 L . Patient currently complains of episodic chest pain, however denies any respiratory distre ss, dizziness or lightheadedness currently. Of note: Patient had recently undergone right axillary lymph node dissection here at [facility] with Dr. Pepe Stone on 01/09. Patient reports that following thi s procedure she did note some swelling in her left foot, however she did not think anything of this and it appeared to have resolved." In the emergency department patient was tachycardic, heart rate 126 bpm, blood pressure 137 /71, 84 % oxygen on RA, placed on 5 L. EKG showed new right bundle branch block Troponin I 0 .155 Due to the magnitude pulmonary emboli, with likely Rt heart strain, Dr. Rhodes of vascular [facility] was immediately contacted, patient deemed not a candidate for thrombolytics due to rece nt right axillary lymph node dissection, recommends pulmonary artery embolectomy using [facility]ARI FlowTriever procedure. Unfortunate this procedure cannot be done at our facility, I have co ntacted [place], [facility] unable to accept transfer, [facility] contacted, di scussed case with cardiothoracic surgeon, interventional radiologist and hospitalist, they deena zuniga kindly accepted transfer. Mode of transportation discussed, currently [facility] poor weather, making air transport nonideal , will transfer with ground ACLS. transthoraci c echocardiogram; Normal left ventricular size, moderate concentric hypertrophy and normal systolic function EF 55%. Right ventricle appears normal in size however moderately impaired systolic function, TPASE 1.2 cm. Intraventricular septum flattening in systole and diastole indicating significant elevated right-sided pressure. Intra-atrial septal bowing to the left indicating increased right-side d pressure. Significant tricuspid regurgitation, pulmonary pressures (RVSP 42 mmHg) underest imated secondary to severity of the tricuspid regurgitation. No pericardial effusion. Ultras ound B/L lower extremities negative for DVT CODE STATUS discussed with patient, full code. COVID - 19 nasal PCR negative (01/14/2020) Findings discussed with patient, agreeable, patient's also was updated Griffin desir's condition currently guarded. Patient to be started on heparin drip, loading dose 11:30 AM Past Medical History: Diagnosis Date Acid reflux disease Chronic diarrhea Disc disorder 2 para 2 Low back pain Malignant melanoma (HCC) Muscle strain Seasonal allergies Strain of muscle, fascia and tendon of lower back, initial encounter Viral meningitis 1976,1982, 1986 Weight loss Past Surgical History: Procedure Laterality Date APPENDECTOMY CHOLECYSTECTOMY 1962 HYSTERECTOMY 2011 and Bladder sling KNEE SURGERY 1969 Bone spur removed LYMPH NODE BIOPSY Right 12/13/2019 Procedure: BIOPSY LYMPH NODE GENERAL; Surgeon: Pepe Stone MD; Location: [facility] [place] R LYMPH NODE DISSECTION Right 01/10/2020 Procedure: DISSECTION LYMPH NODE - AXILLARY; Surgeon: Pepe Stone MD; Location: [facility] MA[facility] OR OTHER SURGICAL HISTORY Right 12/13/2019 Procedure: EXCISION LESION HAND / FINGER, EXCISIONAL BIOPSY RIGHT INDEX FINGER RAY RESECTI ON; Surgeon: David Gomez MD; Location: [facility] OR Allergies Allergen Reactions Pepcid [Famotidine] Anaphylaxis Cardiac arrest Demerol [Meperidine] Other (See Comments) Per pt makes her feel odd Medications Prior to Admission Medication Sig Dispense Refill ascorbic acid (VITAMIN C) 500 mg tablet Take 500 mg by mouth Daily. aspirin 325 mg tablet Take 650 mg by mouth Daily. bismuth subsalicylate (PEPTO-BISMOL) 262 mg/15 mL suspension Take 15 mLs by mouth every 6 hours as needed for Indigestion. calcium polycarbophil (RA FIBER THERAPY) 625 mg tablet Take 625 mg by mouth Daily. cholecalciferol (CHOLECALCIFEROL) 2000 units TABS Take 2,000 Units by mouth Daily. Cholecalciferol (VITAMIN D-3) 2000 units CAPS Take by mouth Daily. coenzyme Q10 100 MG CAPS Take 300 mg by mouth Daily. fish oil 1,000 mg capsule Take 1,000 mg by mouth Daily. HYDROcodone-acetaminophen (NORCO) 5-325 mg per tablet Take 1 tablet by mouth every 4 ho urs as needed for Pain. 20 tablet 0 ibuprofen (ADVIL, MOTRIN) 200 mg tablet Take 400 mg by mouth every 4 hours as needed. loperamide (IMODIUM A-D) 2 MG tablet Take 2 mg by mouth 4 times daily as needed for April rrhea. Multiple Vitamins-Minerals ( MACULAR HEALTH PO) Take 1 tablet by mouth Daily. ondansetron (ZOFRAN ODT) 4 mg disintegrating tablet Take 1 tablet by mouth every 8 hour s as needed for Nausea. 24 tablet 0 ondansetron (ZOFRAN) 4 mg tablet Take 1 tablet by mouth every 6 hours as needed for Miah sea. 20 tablet 1 oxyCODONE-acetaminophen (PERCOCET) 5-325 mg per tablet Take 1 tablet by mouth every 4 h ours as needed for Pain. 30 tablet 0 DISCHARGE EXAM Vital Signs: BP 135/78 | Pulse 113 | Temp 36.7 C (98 F) (Oral) | Resp 18 | SpO2 98% General Appearance: Alert and cooperative, and appears to be in no acute distress. HEENNT: Normocephalic and atraumatic. PERRL, EOMI. Hearing grossly intact. No nasal dischar ge. No JVD present. Cardiovascular: Rhythm and rate are regular. No murmurs, gallops or rubs appreciated. Perip heral pulses 2+ and symmetric. No lower extremity edema. Pulmonary/Chest: Lungs are clear to auscultation bilaterally. Effort is normal. Normal luisa th sounds. On 4L simple oxygen mask. MARCO drain in place in right axilla, serous drainage from insertion site. Abdominal: Soft, nontender, nondistended. Normoactive bowel sounds. No guarding or rebound tenderness. Musculoskeletal: Normal range of motion. Normal muscular development. Neurological: CN II-XII grossly intact. Oriented to person, place, and time. Skin: Skin is warm and dry. No rash noted. Psychiatric:The patient was able to demonstrate good judgement and reason, without hallucin ations, abnormal affect or abnormal behaviors during the examination. DATA Recent Labs Lab 01/14/20 0629 WBC 18.38* RBC 3.73 HGB 11.3 HCT 35.2 MCV 94.4 MCH 30.3 MCHC 32.1 PLT 227 MPV 10.4 MONOPCT 7.30 Recent Labs Lab 01/14/20 0629 NA 137 K 4.5 CL 109 CO2 20* ANIONGAP 13 BUN 16 ALT 266* AST 382* EGFR 60* MG 1.9 No results for input(s): LABGLYC in the last 168 hours. Invalid input(s): HGBA1C Recent Labs Lab 01/14/20 1053 01/14/20 0629 PTT 26 26 No results for input(s): TSH in the last 168 hours. Invalid input(s): T3FREE, FREET4 No results for input(s): TROPONIN in the last 168 hours. Vas Lower Extremity Venous Bilateral Result Date: 01/14/2020 BILATERAL VENOUS DUPLEX LOWER EXTREMITY CLINICAL INFORMATION: Pulmonary embolism. COMPARISO N: None PROCEDURE: Duplex and color Doppler evaluation of the veins of the lower extremities including compression, spectral analysis and Doppler response to distal compression, Valsal va, and/or other maneuvers. FINDINGS: Right Lower Extremity: The common femoral vein, femora l vein and popliteal vein are compressible with normal augmentation. Greater saphenous vein unremarkable. Left Lower Extremity: The common femoral vein, femoral vein and popliteal vein are compressible with normal augmentation. Greater saphenous vein unremarkable. Bilateral lower extremity ultrasound negative for DVT. Final Report Signed by: Clay Montoya Isaac Sign Date/Time: 01/14/2020 11:09 AM Microbiology Results (Last 14 Days by Collected Date with Culture/Sensitivity) Procedure Component Value Units Date/Time Coronavirus (COVID-19) NAAT [[id number]] Collected: 01/14/20 0437 Order Status: Completed Lab Status: Final result Updated: 01/14/20 0592 Specimen: Tissue from Nasopharynx SARS-CoV-2, NAAT (COVID-19) NEGATIVE Comment: This test was developed and its performance characteristics determined by [employer]. It has not been cleared or approved by the [place] FDA. This test has been authorized by FDA under an Emergency Use Authorization (EUA). Clinicians should be advised to consider a patients signs, symptoms, history, and results of other diagnostic tests when interpreting results. Testing performed at [facility];[address] [place] [address];[place] [address] PLAN Discharge transfer to [facility] for further management via ground transportation. Code Status: Full Code No discharge procedures on file. Follow up: No follow-up provider specified. Discharge Medications New Medications Details heparin 1,000 units/mL injection Inject 2.4-4.9 mLs into the vein as needed. heparin in half-normal saline 100 units/mL infusion Inject 1,094.4 Units/hr into the vein continuous. Discontinued Medications ascorbic acid 500 mg tablet aka: VITAMIN C aspirin 325 mg tablet cholecalciferol 50 mcg (2,000 units) capsule aka: VITAMIN D-3 cholecalciferol 50 mcg (2,000 units) tablet aka: VITAMIN D-3 coenzyme Q10 100 MG Caps fish oil 1,000 mg capsule HYDROcodone-acetaminophen 5-325 mg per tablet aka: NORCO ibuprofen 200 mg tablet aka: ADVIL, MOTRIN IMODIUM A-D 2 MG tablet Generic drug: loperamide MACULAR HEALTH PO ondansetron 4 mg disintegrating tablet aka: ZOFRAN ODT ondansetron 4 mg tablet aka: ZOFRAN oxyCODONE-acetaminophen 5-325 mg per tablet aka: PERCOCET PEPTO-BISMOL 262 mg/15 mL suspension Generic drug: bismuth subsalicylate RA FIBER THERAPY 625 mg tablet Generic drug: calcium polycarbophil Discharge took 60 minutes, to include final examination, discussion of admission, and prepa ration of prescriptions, instructions for on-going care, follow-up and documentation of disc harge summary. Pedro Pires MD 01/14/2020 Associated attestation - Gatito Quick MD - 01/14/2020 2:54 PM PDTPatient seen and exa mined at bedside with resident, agree with current plan of care. -71-year-old female recently diagnosed with metastatic melanoma, recent right axillary lymp h node resection (01/10/2020) presented to [facility] emergency department with syncopal episode found to be hypoxic, tachycardic, CT scan showed extensive bilateral pulmonary embo li extending to main pulmonary arteries upper lower lobes. [facility] transferred [facility] then admitted to the hospital service. I then contacted Dr. Rhodes/vascular surgeon who re viewed the case, findings concerning for right heart strain, due to recent right axillary re section, patient still with MARCO drain, ecchymosis, thrombolysis contraindicated, Dr. Rhodes lita mmended transfer for possible pulmonary artery embolectomy using [facility]ARI flow Triever procedur e, unavailable at our facility. [facility] accepted transfer. Patient started on full dose heparin without loading dose. Echocardiogram; EF 55%, significantly elevated right-sided pressures, significant tricuspid valve regurgitation At time of transfer patient to hemodynamically stable, low condition guarded -Pulse 113 bpm -BP 135/78 -98% on 5 L oxygen mask, respiratory rate 18 Patient and agreeable to transfer; risk of transfer discussed with patient, underst ood and agreed Total critical care time spent 55 minutesdocumented in this encounter Medications at Time of Discharge + + + +---------+ + + | Medication | Sig | Dispensed | Refills | Start | End Date | | | | | | Date | | + + + +---------+ + + | heparin 1,000 | Inject 2.4-4.9 mLs | | 0 | 01/14/20 | | | units/mL injection | into the vein as | | | 20 | | | | needed. | | | | | + + + +---------+ + + | heparin in | Inject 1,094.4 | | 0 | 01/14/20 | | | half-normal saline | Units/hr into the | | | 20 | | | 100 units/mL | vein continuous. | | | | | | infusion | | | | | | + + + +---------+ + + documented as of this encounter H&P Notes Ivan Escamilla, DO - 01/14/2020 5:59 AM PDTFormatting of this note might be different from abdelrahman grubbs. [facility] Service: Hospitalist Admission History & Physical Pt: Fátima Guzman AGE/SEX: 79 y.o. female ROOM: ED07/ED07 PCP: Lamont Santoyo MD : 1940 TODAY'S DATE: 01/14/2020 Date of Admission: 01/14/2020 Chief Complaint: SOB History of Present Illness: The patient is a 79 y.o. 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 Patient repo rts that on she had episodes of lightheadedness and dizziness periodically, on Frid ay these episodes continued, however Thursday evening at 11:00 patient was in the bathroom had an episode of syncope, likely her was there and caught her so she did not sustain a ny trauma. EMS was called and patient was found to be significantly hypoxic and hypotensive . Patient was taken to [facility] emergency department where she was worked up and found to have pulmonary embolus bilaterally with significant clot burden. While there patient re quired 100% FiO2 on a nonrebreather to maintain oxygen saturation above 90%. Patient was gi benito a dose of subcutaneous Lovenox and subsequently patient was transferred to [facility] ER, after which patient improved and was changed to Ventimask at 5 or 6 L. Patient currently complains of episodic chest pain, however denies any respiratory distres s, dizziness or lightheadedness currently. Of note: Patient had recently undergone right axillary lymph node dissection here at [facility] with Dr. Pepe Stone on 01/09. Patient reports that following thi s procedure she did note some swelling in her left foot, however she did not think anything of this and it appeared to have resolved. PMHx: Past Medical History: Diagnosis Date Acid reflux disease Chronic diarrhea Disc disorder 2 para 2 Low back pain Malignant melanoma (HCC) Muscle strain Seasonal allergies Strain of muscle, fascia and tendon of lower back, initial encounter Viral meningitis 1976,1982, 1986 Weight loss PSHx: Past Surgical History: Procedure Laterality Date APPENDECTOMY CHOLECYSTECTOMY 1963 HYSTERECTOMY 2011 and Bladder sling KNEE SURGERY 1970 Bone spur removed LYMPH NODE BIOPSY Right 12/13/2019 Procedure: BIOPSY LYMPH NODE GENERAL; Surgeon: Pepe Stone MD; Location: [facility] O R LYMPH NODE DISSECTION Right 01/10/2020 Procedure: DISSECTION LYMPH NODE - AXILLARY; Surgeon: Pepe Stone MD; Location: [facility] MAIN OR OTHER SURGICAL HISTORY Right 12/13/2019 Procedure: EXCISION LESION HAND / FINGER, EXCISIONAL BIOPSY RIGHT INDEX FINGER RAY RESECTI ON; Surgeon: David Gomez MD; Location: [facility] OR Prior To admission Meds: Prior to Admission medications Medication Sig Start Date End Date Taking? Authorizing Provider ascorbic acid (VITAMIN C) 500 mg tablet Take 500 mg by mouth Daily. Yes Historical Provid erMD aspirin 325 mg tablet Take 650 mg by mouth Daily. Historical Provider, bismuth subsalicylate (PEPTO-BISMOL) 262 mg/15 mL suspension Take 15 mLs by mouth every 6 h ours as needed for Indigestion. Yes Historical Provider, calcium polycarbophil (RA FIBER THERAPY) 625 mg tablet Take 625 mg by mouth Daily. Yes Julian palm ProviderMD cholecalciferol (CHOLECALCIFEROL) 2000 units TABS Take 2,000 Units by mouth Daily. Yes Julian palm ProviderMD Cholecalciferol (VITAMIN D-3) 2000 units CAPS Take by mouth Daily. Yes Historical Provid erMD coenzyme Q10 100 MG CAPS Take 300 mg by mouth Daily. Yes Historical Provider, fish oil 1,000 mg capsule Take 1,000 mg by mouth Daily. Yes Historical Provider, HYDROcodone-acetaminophen (NORCO) 5-325 mg per tablet Take 1 tablet by mouth every 4 hours as needed for Pain. 12/14/19 Yes David Gomez MD ibuprofen (ADVIL, MOTRIN) 200 mg tablet Take 400 mg by mouth every 4 hours as needed. Yes Historical Provider, loperamide (IMODIUM A-D) 2 MG tablet Take 2 mg by mouth 4 times daily as needed for Diarrhe a. Yes Historical Provider, Multiple Vitamins-Minerals ([facility] PO) Take 1 tablet by mouth Daily. Yes Histo rical Provider, ondansetron (ZOFRAN ODT) 4 mg disintegrating tablet Take 1 tablet by mouth every 8 hours as needed for Nausea. 12/14/19 Yes David Gomez MD ondansetron (ZOFRAN) 4 mg tablet Take 1 tablet by mouth every 6 hours as needed for Nausea. 01/10/20 Yes Pepe Stone MD oxyCODONE-acetaminophen (PERCOCET) 5-325 mg per tablet Take 1 tablet by mouth every 4 hours as needed for Pain. 01/10/20 Yes Pepe Stone MD Medications scheduled: Allergies: Allergies Allergen Reactions Pepcid [Famotidine] Anaphylaxis Cardiac arrest Demerol [Meperidine] Other (See Comments) Per pt makes her feel odd Family Hx: Family History Problem Relation Age of Onset Alzheimer's disease Mother TIA Other Breast cancer Neg Hx Malig hypertherm Neg Hx Social Hx: Social History Tobacco Use Smoking status: Former Smoker Quit date: 1995 Years since quittin.7 Smokeless tobacco: Never Used Substance Use Topics Alcohol use: Yes Alcohol/week: 2.0 standard drinks Types: 2 Glasses of wine per week Comment: a night Review of Symptoms: Constitutional: Negative for fever, chills, diaphoresis, activity change, appetite change, fatigue and unexpected weight change. HENT: Negative for hearing loss, ear pain, nosebleeds, congestion, facial swelling, rhinorr hea, neck pain, neck stiffness, dental problem, tinnitus and ear discharge. Eyes: Negative for photophobia, pain, discharge, redness, itching and visual disturbance. Respiratory: Negative for apnea, cough, chest tightness, and wheezing. Admits to shortness of breath Cardiovascular: Negative for chest pain, palpitations. Admits to left lower extremity swel ling postsurgically, however reports that this resolved. Gastrointestinal: Negative for nausea, vomiting, abdominal pain, diarrhea, constipation, bl ood in stool, abdominal distention, anal bleeding and rectal pain. Genitourinary: Negative for dysuria, frequency, hematuria, flank pain, difficulty urinating and dyspareunia. Musculoskeletal: Negative for back pain, joint swelling, arthralgias and gait problem. Skin: Negative for color change, pallor, rash and wound. Neurological: Negative for dizziness, tremors, seizures, weakness, numbness and headaches. Admits to syncope and lightheadedness Hematological: Negative for adenopathy. Does not bruise/bleed easily. Psychiatric/Behavioral: Negative for suicidal ideas, hallucinations, behavioral problems, c onfusion and agitation. Objective: Vital Signs: BP 116/69 Comment: 6L oxymask | Pulse 110 Comment: 6L oxymask | Temp 36.2 C (97.2 F) (Oral) | Resp 18 Comment: 6L oxymask | SpO2 95% Comment: 6L oxymask Physical Exam: Constitutional: Oriented to person, place, and time. appears well-developed and well-nouris hed. HEENT: Head: Normocephalic and atraumatic. Nose: Nose normal. Mouth/Throat: Oropharynx is clear and moist. Eyes: Conjunctivae and EOM are normal. Pupils are equal, round, and reactive to light. Righ t eye exhibits no discharge. Left eye exhibits no discharge. No scleral icterus. Neck: Normal range of motion. Neck supple. No JVD present. No tracheal deviation present. N o thyromegaly present. no cervical adenopathy. Cardiovascular: Tachycardia regular rhythm, normal heart sounds with S1 and S2, and intact distal pulses. Exam reveals no gallop and no friction rub. No murmur heard. Pulmonary/Chest: Effort normal and breath sounds normal. No stridor. No respiratory distres s. no wheezes. no rales. exhibits no tenderness. Abdominal: Soft. Bowel sounds are normal. exhibits no distension and no mass. There is no t enderness. There is no rebound and no guarding. Extremities/Musculoskeletal: Normal range of motion.exhibits no tenderness. exhibits no ed alejandro. Axillary wound with drain in place. Right index finger amputation noted, wound healin g, no evidence of drainage or infection. Neurological: Alert and oriented to person, place, and time. Has normal reflexes. display s normal reflexes. No cranial nerve deficit. Exhibits normal muscle tone. Coordination norm al. Skin: Skin is warm and dry. No rash noted. No erythema. No pallor. Psychiatric: Has a normal mood and affect. Behavior is normal. Judgment normal. Data: CBC: No results found for: WBC, RBC, HGB, HCT, MCV, MCH, MCHC, RDW, PLT, MPV, DIFFTYPE CMP: No results found for: NA, K, CL, CO2, ANIONGAP, GLUF, BUN, CREATININE, ALB, GLOB, AGR ATIO, BILITOT, AST, ALT, EGFR Labs from [facility] WBC: 15.5 Hb: 12.2 HCT: 36.9 PLT: 252 Na: 123 K: 4.0 Cl: 100 Ca: 9.5 Glu: 364 BUN: 21 Cr: 1.12 GFR: 47 AST: 129 ALT: 97 T.PATTIE: 0.6 Trop: 0.155 IMAGING: No results found. EKG: Sinus tachycardia with some premature atrial complexes. No evidence of acute ischemia . 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 CT scan there sh owed "Extensive bilateral pulmonary emboli extending from the bilateal main pulmonary Arter ies into the upper and lower lobes bilaterally was well as into the right middle lobe" [place] trop.: 0.155 - Admit to inpatient to stepdown unit - Start Heparin Drip at 1:00 pm, Per Pharmacy rec. as patient got dose of Lovenox in ED at [place] [facility] [place] - hospitalist to discuss case with IR - Monitor hemodynamics closely -We will make n.p.o. in case patient goes for thrombectomy. -Telemetry monitoring Leukocytosis - likely reactive, no evidence of infection currently. - Monitor with CBC - hold off on abx for now Hyperglycemia - no hx of type 2 dm. Elevated at 364. - POC glucose - will place sliding scale - fingerstick glucose monitoring - A1c - Hypoglycemia protocol. Acute versus chronic kidney disease. Patient has creatinine of 1.12 and GFR 47. Monitor closely Avoid nephrotoxic agents Patient's old records and labs were reviewed in detail. Patient has large clot burden, prognosis guarded Code Status: Full code Primary Care Physician: MD Ivan Garcia DO 01/14/2020 6:16 AM PDT documented in this encoun ter ED Notes Liam Lew RN - 01/14/2020 7:56 AM PDTED post anesthesia care unit nurseMaria De Jesus gomez has called [facility] transfer center and requested consult and call back. Call back number provided for Dr. Corey mukherjee (hospitalist). The patient has left the ED and has gone to [facility]. Myself (ED discharge rn) and primary ED RN Boris Ellison Were unaware there was plan for transfer. Transfer center was also unaware of this. We were informed by day shift provider, Dr. Vizcarra. Per twila Potts was not consulted by Dr. Escamilla. This morning, Dr. Quick consulted with Dr. Rhodes who report ed patient is to be transferred to [place] for clot retrieval. Because patient has left the ED, transfer will take place in [facility]. Transfer center and [facility] aware of this. Electronica lly signed by Liam Lew RN at 01/14/2020 8:07 AM PDTOsterBoris fleming RN - 2019 7:13 AM PDTHospitalist at bedside.Electronically signed by Boris Owusu RN at 0 01/14/2020 7:16 AM PDTKerry Rodriguez RN - 01/14/2020 6:08 AM PDTHeparin order canc el no bolus to be given only to start infusion at 1330 Rufina Christy RN - 01/14/2020 4:52 AM PDTPt is a LF transfer from [facility] in [place]. She presented there for syncope, SOB and diarrh ea. Pt dx with bilat PE's and is oxygen dependent. Last night pt was napping in her chair an d had her help her up to the bathroom around 2300. She states she felt hot and was s weaty and then she passed out after going to the bathroom and having an episode of V/D. Pt w as unconscious for 1-2 min. Her called EMS and they responded to her home and had to help her get up off of the bathroom floor. Pt had axillary lymph nodes removed on the right side 1 week CERTIFIED MEDICAL AIDE with Dr Stone and also had her right index finger amputated with Dr Gomez. Pt states all of the above symptoms started yesterday which is why she presented to the [facility] ED. Pt is alert, slightly nauseous, slightly SOB, and resting comfortably. Oxygen sw itched from NRB to oxymask, pt tolerating well. Kerry Hull RN - 01/14/2020 4:18 AM PDTBed: [id number] Expected date: Expected time: Means of arrival: Comments: [facility] elwix, Abdelrahman Edmond MD - 01/14/2020 4:18 AM PDTFormatting of this note might be different from the orig inal. 4:18 AM PDT [facility] Department of Emergency Medicine History of Present Illness Patient Identification Fátima Guzman is a 79 y.o. female. Patient information was obtained from the patient, EMS, and past medical records. History/Exam limitations: none. Patient presented to the Emergency Department by: Medical Flight Chief Complaint Chief Complaint Patient presents with Syncope Shortness of Breath Diarrhea (Adult) Chief complaint: multiple PE Location: multiple PE's Severity: moderate-severe Onset: yesterday Timing: ongoing Modifying factors: none Care prior to arrival: Zofran Associated symptoms: shortness of breath, nausea, chronic diarrhea Denies: vomiting, fever, cough, sneezing, loss of taste or smell, dysuria, frequency, heada denise, dizziness Context: Pt is a 79 year old female transferred from [facility] for multiple PE's. Pt wa s initially seen for complaints of syncope, shortness of breath, and nausea. Pt had a CT sofia wing multiple PE's. She was placed on a 100% O2 with non rebreather there which was continue d en route. She was given Lovenox 69.4 mg SQ in the ED. She was also given Dilaudid 0.5 mg i n the ED prior to transfer and was given Zofran en route. Pt reports she began feeling shor t of breath and dizzy two days ago, but was worse yesterday. She experienced a syncopal epis ode with LOC. She was then transported to [facility] and was found to have bilateral PEs. Currently she only complains of a sensation of something stuck in the back of her throat an d nausea, and feels much better. Pt states she had recent surgery 4 days ago R axillary lymp h node resection) and she had a negative COVID on 01/10/20. 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 PCP: Lamont Santoyo MD Review of Systems Constitutional: Negative for fever or recent illness Eyes: Negative for vision changes Nose: Negative for congestion Throat: Negative for sore throat CV: Negative for chest pain Resp: Negative for cough Positive for soodyruci-ib-krjkmx GI: Negative for abdominal pain, vomiting Positive for nausea Positive for chronic diarrhea ongoing for 2 months : Negative for urinary problems Musculoskeletal: Positive for chronic back pain Positive for R axillary pain since surgery (but currently minimal) Skin: Negative for rash Neuro/Psych: Negative for headache Positive for syncopal episode yesterday All other systems reviewed and negative except as noted. Past Medical History: Diagnosis Date Acid reflux [...] NODE GENERAL; Surgeon: Pepe Stone MD; [place] [facility] [place] R LYMPH NODE DISSECTION Right 01/10/2020 Procedure: DISSECTION LYMPH NODE - AXILLARY; Surgeon: Pepe Stone MD; Location[place] [facility] OTHER SURGICAL HISTORY Right 12/13/2019 Procedure: EXCISION LESION HAND / FINGER, EXCISIONAL BIOPSY RIGHT INDEX FINGER RAY RESECTI ON; Surgeon: David Gomez MD; Location[place] [facility] [place] Prior to Admission medications Medication Sig Start Date End Date Taking? Authorizing Provider ascorbic acid (VITAMIN C) 500 mg tablet Take 500 mg by mouth Daily. Historical ProviderMD aspirin 325 mg tablet Take 650 mg by mouth Daily. Historical Provider, bismuth subsalicylate (PEPTO-BISMOL) 262 mg/15 mL suspension Take 15 mLs by mouth every 6 h ours as needed for Indigestion. Historical Provider, calcium polycarbophil (RA FIBER THERAPY) 625 mg tablet Take 625 mg by mouth Daily. Beatrice tian ProviderMD cholecalciferol (CHOLECALCIFEROL) 2000 units TABS Take 2,000 Units by mouth Daily. Beatrice tian ProviderMD Cholecalciferol (VITAMIN D-3) 2000 units CAPS Take by mouth Daily. Historical ProviderMD coenzyme Q10 100 MG CAPS Take 300 mg by mouth Daily. Historical Provider, fish oil 1,000 mg capsule Take 1,000 mg by mouth Daily. Historical ProviderMD HYDROcodone-acetaminophen (NORCO) 5-325 mg per tablet Take 1 tablet by mouth every 4 hours as needed for Pain. Patient not taking: Reported on 01/10/2020. 12/14/19 David Gomez MD ibuprofen (ADVIL, MOTRIN) 200 mg tablet Take 400 mg by mouth every 4 hours as needed. Hi tomerical ProviderMD loperamide (IMODIUM A-D) 2 MG tablet Take 2 mg by mouth 4 times daily as needed for Diarrhe a. Historical ProviderMD Multiple Vitamins-Minerals ([facility] PO) Take 1 tablet by mouth Daily. Historic al ProviderMD ondansetron (ZOFRAN ODT) 4 mg disintegrating tablet Take 1 tablet by mouth every 8 hours as needed for Nausea. Patient not taking: Reported on 01/10/2020. 12/14/19 David Gomez MD ondansetron (ZOFRAN) 4 mg tablet Take 1 tablet by mouth every 6 hours as needed for Nausea. 01/10/20 Pepe Stone MD oxyCODONE-acetaminophen (PERCOCET) 5-325 mg per tablet Take 1 tablet by mouth every 4 hours as needed for Pain. 01/10/20 Pepe Stone MD Vit-Fe Fumarate-FA ( COMPLETE) 14-0.4 MG TABS Take 1 tablet by mouth Daily . Historical Provider, Allergies Allergen Reactions Pepcid [Famotidine] Anaphylaxis Cardiac arrest Demerol [Meperidine] Other (See Comments) Per pt makes her feel odd Social History Tobacco Use Smoking status: Former Smoker Quit date: 1995 Years since quittin.7 Smokeless tobacco: Never Used Substance Use Topics Alcohol use: Yes Alcohol/week: 2.0 standard drinks Types: 2 Glasses of wine per week Comment: a night Drug use: No Family History Problem Relation Age of Onset Alzheimer's disease Mother TIA Other Breast cancer Neg Hx Malig hypertherm Neg Hx Physical Exam Temp: 36.2 C (97.2 F) Pulse: 126 Resp: 17 BP: 127/71 SpO2: (!) 84 % Vital signs interpretation: tachycardia Pulse Oximetry interpretation: Hypoxia on RA, bur sats increased to 97% on O2 General: Alert, in no apparent distress Eyes: Normal inspection, non-icteric, non-injected ENT: Nose normal Pharynx normal Moist mucous membranes No erythema, exudate, or lesions Neck: Normal inspection Supple, no lymphadenopathy Back: Normal inspection CV: Rate and rhythm normal No murmurs Respiratory: Bilaterally clear to auscultation No rales, wheezing or rhonchi Abdomen: Soft, non-distended, non-tender No masses, rebound or guarding Extremities: Non tender, no edema The R hand looks well, the index finger amputation appears to be healing well. Skin: Ecchymosis to the R axillary region. Drain present Skin otherwise looks normal Warm and dry Neuro: Alert, no AMS No gross motor/sensory deficits Medical Decision Making and Emergency Department Course ED Department Course Patient presents to ED with complaints of shortness of breath and s/p syncope. She has been diagnosed with multiple bilateral PEs. Patient currently stable. Patient to be admitted. Wi ll order repeat EKG and start heparin drip. We will also repeat the COVID-19 test. I do not feel she requires the ICU. We put her on an oxymask at 6L, her sats are 97%. Reviewed records from [facility] Labs: CBC: WBC 15.5, HGB 12.1, PLTs 252 CMP: glucose 364, Cr 1.12, GFR 47, Na 134, K 4.0, Cl 100, CO2 20, Ca 9.5, T bili 0.6, AST 1 29, ALT 97, Alk phos 99 INR: 1.0 D-dimer: 1700 Trop: 0.155 BNP: 181 CXR 1. No significant cardiopulmonary abnormality. 2. Right axillary/upper chest subcutaneous emphysema and drain, which may be from prior pr ocedure. CT chest PE with contrast 1. Extensive bilateral pulmonary emboli described above with evidence of right heart strai n. 2. Scattered groundglass opacities in the upper lungs bilaterally are favored to be relate d to pulmonary hypoperfusion/multiple pulmonary emboli although superimposed atypical infect ion could be considered. 3. There is a small hematoma in the right axilla with right chest wall soft tissue gas and surgical drain in place, consistent with recent surgery. No visible active extravasation. No organized fluid collection. Gas filling soft tissue infection is not completely exclude d by CT. Correlate clinically. Pharmacist told our RN we are not to start her on heparin until 1:30 PM, and to give no harshil us. 4:52 AM Discussed heparin dosing with our pharmacist, Ruth. I called to clarify the hepa rin recommendations. She recommends we start the heparin drip at 1:30 PM later today since t he patient received Lovenox at 1:45 AM at [facility]. The patient is to receive NO bolus, but is not start the IV drip at 1:30 PM. 4:57 AM Discussed patient with Dr. Escamilla, hospitalist. He is already aware of the patient. H e accepts the patient onto his service. Vitals: 01/14/20 0430 01/14/20 0441 01/14/20 0503 01/14/20 0530 BP: 109/77 126/75 116/69 Pulse: 115 114 110 Resp: 18 18 18 Temp: TempSrc: SpO2: 96% 97% 97% 95% Medications heparin 1,000 units/mL injection 3,000-10,000 Units (has no administration in time range) oxyCODONE-acetaminophen (PERCOCET) 5-325 mg per tablet 1 tablet (has no administration in t scott range) Records Reviewed Old medical records. Nursing notes Previous ED visits for unrelated symptoms Laboratory Evaluation Results Procedure Component Value Ref Range Date/Time Coronavirus (COVID-19) NAAT [[id number]] Collected: 01/14/20 0437 Order Status: Completed Specimen: Tissue from Nasopharynx Updated: 01/14/20 05 SARS-CoV-2, NAAT (COVID-19) NEGATIVE NEG I personally reviewed the lab results and they have been posted to the chart. Pertinent po sitive and negative findings have been addressed appropriately. Radiology and EKG Evaluation EKG @ 0514 Sinus tachycardia at a rate of [address]/T wave abnormalities No STEMI or other ischemic changes This EKG was interpreted by me independently Pepe Trammell MD Diagnosis and Disposition Diagnosis: 1. Pulmonary embolism, bilateral (HCC) 2. Shortness of breath 3. Syncope, unspecified syncope type Disposition: ED Disposition ED Disposition Condition Comment Admit Clinical impression: Pulmonary embolism, bilateral (HCC) [[id number]] Clinical impression: Shortness of breath [786.05.ICD-9-CM] Clinical impression: Syncope, unspecified syncope type [7042097] Admitting provider: JOSE ROBERTO HOSPITALIST [[id number]] Expected patient class: Inpatient [101] Level of service: Medical Procedures Pepe Trammell M.D. Attending Provider Note: IPepe MD personally performed the services described in this documentation, as scribed by Mike Gresham in my presence, and it is both accurate a nd complete. Chart Reviewed and Completed. Scribe: Nando Up, scribing for and in the presence of Pepe Trammell MD. Completed by: Nando Beltran 01/14/2020 5:54 AM PDT Pepe Trammell MD 01/14/20 0554 Kerry Hull RN - 01/14/2020 4:06 AM PDTLife flight helo called ETA 5 min Current VS BP 123/86 P 113 R 30 SaO2 100% NRB Kerry Hull RN - 01/14/2020 3:50 AM Murphy RN called from [facility] with report: Pt came in c/o syncope, SOB and hypotensive, nausea, diarrhea. CT confirmed multiple PE Initial VS: BP 89/58 P 130 R 26 SaO2 100 NRB 15 L temp 96.9 Recent VS : BP120/80 P 117 R 22 Temp 97.6 still on 15 L NRB IV: 20G right wrist 20G LAC Full Code Recent discharge from [facility] had surgery R axillary removed her Lymph nodes has drains in p lace Medication: Diladid 0.5mg, Zofran 4 mg, Lovenox 69.4mg RLQ sub documented in this encounter Miscellaneous Notes Plan of Care - Gatito Quick MD - 01/14/2020 8:41 AM [id number] female transferred from [facility] emergency department with acute bilateral pulmonary emboli. Patient has a recent diagnosis of metastatic melanoma, 12/13/2019 Dr. Gomez performed a righ t hand second ray amputation for melanoma, she was found to have positive sentinel nodes in the right axilla, Dr. Pepe Stone performed right axilla lymph node dissection on 01/10/20 with a MARCO drain left in place, re-seen on 01/12/2020 with ecchymosis along the right breas t area, drain was advanced with serosanguineous output. Patient followed by Dr. Jones/medical oncologist [facility] on the evening of 01/13/2020 with a syncopal episode, dyspnea, CT scan showed extensive pulmonary emboli extending from bilate ral main pulmonary arteries to upper and lower branches, she was initially placed on 100% ox ygen she was administered 70 mg subcu tenuous Lovenox (1:45 AM) and transferred to our [facility] it and admitted by night hospitalist. In the emergency department patient was tachycardic, heart rate 126 bpm, blood pressure 137 /71, 84 % oxygen on RA, placed on 5 L. EKG showed new right bundle branch block Troponin I 0.155 Due to the magnitude pulmonary emboli, with likely Rt heart strain, Dr. Rhodes of [facility] was immediately contacted, patient deemed not a candidate for thrombolytics due to rece nt right axillary lymph node dissection, recommends pulmonary artery embolectomy using [employer] FlowTriever procedure, unfortunate this procedure cannot be done at our facility, I have co ntacted [place], [facility] unable to accept transfer, [facility] contacted, di scussed case with cardiothoracic surgeon, interventional radiologist and hospitalist, they h ave kindly accepted transfer. Mode of transportation discussed, currently [facility] poor weather, making air transport nonideal , will transfer with ground ACLS. Findings discussed with patient, agreeable, patient's also was updated [facility] Patient's condition currently guarded Patient to be started on heparin drip, loading dose 11:30 AM Addendum; transthoracic echocardiogram; Normal left ventricular size, moderate concentric hypertrophy and normal systolic function EF 55%. Right ventricle appears normal in size however moderately impaired systolic function, TPASE 1.2 cm. Intraventricular septum flattening in systole and diastole indicating significant elevated right-sided pressure. Intra-atrial septal bowing to the left indicating increased right-sided pressure. Significant tricuspid regurgitation, pulmonary pressures (RVSP 42 mmHg) underestimated seco ndary to severity of the tricuspid regurgitation. No pericardial effusion. Ultrasound B/L lower extremities negative for DVT CODE STATUS discussed with patient, full code COVID - 19 nasal PCR negative (01/14/2020) documented in this e ncounter Plan of Treatment +--------+---------+ + + + | Date | Type | Specialty | Care Team | Description | +--------+---------+ + + + | 01/31/ | Office | General Surgery | Pepe Stone, | | | 2019 | Visit | | [address] | | | | | | [address] [place], | | | | | | [place] [address] | | | | | | [phone] | | | | | | | | +--------+---------+ + + + | 02/01/ | Office | Orthopedic Surgery | David Gomez, | | | 2019 | Visit | | [address] | | | | | | [place] [address] | | | | | | [phone] | | | | | | | | +--------+---------+ + + + + +------+--------+ + + | Name | Type | Priori | Associated Diagnoses | Date/Time | | | | ty | | | + +------+--------+ + + | ED INFORMATION | CORINE | Routin | | 01/14/2020 4:19 AM | | EXCHANGE | | e | | PDT | + +------+--------+ + + documented as of this encounter Procedures + +--------+ + + + | Procedure Name | Priori | Date/Time | Associated Diagnosis | Comments | | | ty | | | | + +--------+ + + + | ECHO COMPLETE | BRIAN | 01/14/2020 | | Results for this | | | | 11:10 AM | | procedure are in the | | | | PDT | | results section. | + +--------+ + + + | PTT | STAT | 01/14/2020 | | Results for this | | | | 10:53 AM | | procedure are in the | | | | PDT | | results section. | + +--------+ + + + | VAS LOWER EXTREMITY | Routin | 01/14/2020 | | Results for this | | VENOUS BILATERAL | e | 10:48 AM | | procedure are in the | | | | PDT | | results section. | + +--------+ + + + | POC GLUCOSE (NON | Routin | 01/14/2020 | | Results for this | | ORD) | e | 6:46 AM | | procedure are in the | | | | PDT | | results section. | + +--------+ + + + | PTT | Add-On | 01/14/2020 | | Results for this | | | | 6:29 AM | | procedure are in the | | | | PDT | | results section. | + +--------+ + + + | CBC WITH | Routin | 01/14/2020 | | Results for this | | DIFFERENTIAL | e | 6:29 AM | | procedure are in the | | | | PDT | | results section. | + +--------+ + + + | MAGNESIUM | Routin | 01/14/2020 | | Results for this | | | e | 6:29 AM | | procedure are in the | | | | PDT | | results section. | + +--------+ + + + | COMPREHENSIVE | Routin | 01/14/2020 | | Results for this | | METABOLIC PANEL | e | 6:29 AM | | procedure are in the | | | | PDT | | results section. | + +--------+ + + + | ECG 12 LEAD | Routin | 01/14/2020 | | Results for this | | | e | 5:14 AM | | procedure are in the | | | | PDT | | results section. | + +--------+ + + + | CORONAVIRUS | Routin | 01/14/2020 | | Results for this | | (COVID-19) NAAT | e | 4:37 AM | | procedure are in the | | | | PDT | | results section. | + +--------+ + + + | ED INFORMATION | Routin | 01/14/2020 | | | | EXCHANGE | e | 4:19 AM | | | | | | PDT | | | + +--------+ + + + +---+--------+ | | | | | Proced | | | ure | | | Note - | | | Jaquan, | | | Lab In | | | | | | Hlseve | | | n - | | | | | | 2019 | | | 4:20 | | | AM PDT | | | | | | Format | | | ting | | | of | | | this | | | note | | | might | | | be | | | differ | | | ent | | | from | | | the | | | origin | | | al.COL | | | LECTIV | | | E?NOTI | | | FICATI | | | ON?09/ | | | 26/202 | | | 0 | | | 04:18? | | | GUZMAN, | | | | | | FÁTIMA | | | | | | J?MRN: | | | | | | [id number] | | | [id number] | | | riteri | | | a Met | | | 2 in | | | 2Secur | | | ity | | | and | | | Safety | | | No | | | recent | | | | | | Securi | | | ty | | | Events | | | | | | curren | | | tly on | | | | | | fileED | | | Care | | | Guidel | | | inesTh | | | ere | | | are | | | curren | | | tly no | | | ED | | | Care | | | Guidel | | | hermes | | | for | | | this | | | patien | | | t. | | | Please | | | check | | | your | | | facili | | | ty's | | | medica | | | l | | | record | | | s | | | system | | | .Presc | | | riptio | | | n Drug | | | | | | Report | | | (12 | | | Mo.)PD | | | MP | | | query | | | found | | | no | | | report | | | .E.D. | | | Visit | | | Count | | | (12 | | | mo.)Fa | | | cility | | | | | | Visits | | | Low | | | Acuity | | | | | | [facility] | | | | | | [facility] | | | al | | | Medica | | | l | | | Center | | | 1 0 | | [facility] | [facility] | | | al 1 0 | | | Total | | | 2 0 | | | Note: | | | Visits | | | | | | indica | | | te | | | total | | | known | | | visits | | | . | | | Medica | | | id Low | | | | | | Acuity | | | Dx | | | are | | | the | | | number | | | of | | | primar | | | y | | | diagno | | | ses on | | | the | | | Medica | | | id's | | | Low | | | Acuity | | | dx | | | list. | | | | | | Recent | | | | | | Emerge | | | ncy | | | Depart | | | ment | | | Visit | | | [facility] | | | yDate | | | Facili | | | ty | | | City | | | State | | | Type | | | Diagno | | | ses or | | | Chief | | | | | | Compla | | | int | | | Sep | | | 26, | | | 2020 | | | [facility] | | | | | | Region | | | al | | | [facility] | | | [place] | | | [place] | | | Emerge | | | ncy | | | | | | Diarrh | | | ea | | | (Adult | | | ) | | | Syncop | | | e | | | Shortn | | | ess of | | | | | | Breath | | | Sep | | | 26, | | | 2020 | | | [facility] | | [facility] [place] | | | [place] | | | Emerge | | | ncy | | | Chief | | | Compla | | | int: | | | V/D,SO | | | B,SYNC | | | OPE | | | Recent | | | | | | Inpati | | | ent | | | Visit | | | [facility] | | | yNo | | | record | | | ed | | | inpati | | | ent | | | visits | | | . Care | | | | | | TeamTh | | | ere is | | | not a | | | care | | | team | | | on | | | record | | | at | | | this | | | time. | | | Collec | | | tive | | | Portal | | | This | | | patien | | | t has | | | regist | | | ered | | | at the | | | | | | [facility] | | [facility] | [facility] | | | al | | | [facility] | | | [facility] | | | [facility] | | | | | | [facility] | | | ncy | | | Depart | | | ment | | | For | | | more | | | inform | | | ation | | | visit: | | | | | | https: | | | //secu | | | [email or web address] | | | lectiv | | | emedic | | | [email or web address] | | | /notif | | | [id number] | | | [id number] | | | [id number] | | | [id number] | | | [phone] | | | [email or web address] | | | 36 | | | PLEASE | | | NOTE: | | | 1. | | | Any | | | care | | | recomm | | | endati | | | ons | | | and | | | other | | | clinic | | | al | | | inform | | | ation | | | are | | | provid | | | ed as | | | guidel | | | hermes | | | or for | | | | | | histor | | | ical | | | purpos | | | es | | | only, | | | and | | | provid | | | ers | | | should | | | | | | exerci | | | se | | | their | | | own | | | clinic | | | al | | | judgme | | | nt | | | when | | | provid | | | ing | | | care. | | | 2. | | | You | | | may | | | only | | | use | | | this | | | inform | | | ation | | | for | | | purpos | | | es of | | | treatm | | | ent, | | | paymen | | | t or | | | health | | | care | | | operat | | | ions | | | activi | | | ties, | | | and | | | subjec | | | t to | | | the | | | limita | | | tions | | | of | | | applic | | | able | | | [facility] | | | tive | | | Polici | | | es. | | | 3. | | | You | | | should | | | | | | consul | | | t | | | direct | | | ly | | | with | | | the | | | organi | | | zation | | | that | | | provid | | | ed a | | | care | | | guidel | | | ine or | | | other | | | | | | clinic | | | al | | | histor | | | y with | | | any | | | questi | | | ons | | | about | | | additi | | | onal | | | inform | | | ation | | | or | | | accura | | | cy or | | | comple | | | teness | | | of | | | inform | | | ation | | | provid | | | ed.? | | | 2019 | | | [facility] | | | tive | | | Medica | | | l | | | [employer] | | | logies | | | , Inc[employer] | | | - | | | [email or web address] | | | llecti | | | vemedi | | | [email or web address] | | | m | +---+--------+ documented in this encounter Results ECHO Complete (01/14/2020 11:10 AM PDT) + +--------+ + + + | Component | Value | Ref Range | Performed | Pathologist | | | | | At | Signature | + +--------+ + + + | RA PRESSURE | 8 | mmHg | [facility] | | + +--------+ + + + | LVIDd | 2.88 | cm | [facility] | | + +--------+ + + + | FS | 31 | % | [facility] | | + +--------+ + + + | LA volume | 40.13 | mL | [facility] | | + +--------+ + + + | Ascending | 2.66 | cm | [facility] | | | aorta | | | | | + +--------+ + + + | AV mean | 6.68 | mmHg | [facility] | | | gradient | | | | | + +--------+ + + + | Aortic | 1.12 | cm2 | [facility] | | | Valve Area | | | | | | by | | | | | | Continuity | | | | | | VTI | | | | | + +--------+ + + + | PV peak | 0.74 | mmHg | [facility] | | | gradient | | | | | + +--------+ + + + | LVOT | 1.54 | cm | [facility] | | | diameter | | | | | + +--------+ + + + | LVOT peak | 104.58 | cm/s | [facility] | | | kate | | | | | + +--------+ + + + | LVOT peak | 15.69 | cm | [facility] | | | VTI | | | | | + +--------+ + + + | AV peak kate | 171.28 | cm/s | [facility] | | + +--------+ + + + | AV VTI | 26.1 | cm | [facility] | | + +--------+ + + + | RVOT | 3.88 | cm | [facility] | | | diamter | | | | | + +--------+ + + + | AV peak | 11.73 | mmHg | [facility] | | | gradient | | | | | + +--------+ + + + | TV mean | 0.91 | mmHg | [facility] | | | gradient | | | | | + +--------+ + + + | PV mean | 0.36 | mmHg | [facility] | | | gradient | | | | | + +--------+ + + + | LA Volume | 23 | mL/m2 | [facility] | | | Index | | | | | + +--------+ + + + | AV LVOT | 4.38 | mmHg | [facility] | | | Peak | | | | | | Gradient | | | | | + +--------+ + + + | AV LVOT | 2.21 | mmHg | [facility] | | | Mean | | | | | | Gradient | | | | | + +--------+ + + + | TR Peak | 34 | mmHg | [facility] | | | Gradient | | | | | + +--------+ + + + | TR Velocity | 292.82 | cm/s | [facility] | | + +--------+ + + + | PI Peak | 43.06 | cm/s | [facility] | | | Velocity | | | | | + +--------+ + + + | LV | 7.33 | cm | [facility] | | | Diastolic | | | | | | Length 4C | | | | | + +--------+ + + + | RV | 3.13 | cm | [facility] | | | Diastolic | | | | | | Basal | | | | | | Diameter | | | | | + +--------+ + + + | LV | 53 | % | [facility] | | | Correia's | | | | | | Biplane EF | | | | | + +--------+ + + + | LV ED | 35.74 | ml | [facility] | | | Volume | | | | | | (Correia's) | | | | | + +--------+ + + + | LV ED | 21 | ml/m2 | [facility] | | | Volume | | | | | | Index | | | | | + +--------+ + + + | LV ES | 16.7 | ml | [facility] | | | Volume | | | | | + +--------+ + + + | LVOT Mean | 69.96 | cm/s | [facility] | | | Velocity | | | | | + +--------+ + + + | RVSP | 42 | mmHg | [facility] | | | Estimated | | | | | + +--------+ + + + | MV Peak | 98.01 | cm/s | [facility] | | | E-Wave | | | | | + +--------+ + + + | TV Mean | 42.36 | cm/s | [facility] | | | Velocity | | | | | + +--------+ + + + | PV Mean | 27.43 | cm/s | [facility] | | | Velocity | | | | | + +--------+ + + + | PV | 78.1 | cm/s | [facility] | | | Regurgitati | | | | | | on Velocity | | | | | + +--------+ + + + | AV Mean | 121.09 | cm/s | [facility] | | | Velocity | | | | | + +--------+ + + + | RA Area | 23.01 | cm2 | [facility] | | + +--------+ + + + | LA/Aorta | 1.39 | | [facility] | | | Ratio | | | | | + +--------+ + + + | LA Area | 11.93 | cm2 | [facility] | | + +--------+ + + + | LA Major | 0.261 | cm | [facility] | | + +--------+ + + + | LV ES | 10 | ml/m2 | [facility] | | | Volume | | | | | | Index | | | | | + +--------+ + + + | Cardiac | 3.33 | l/min | [facility] | | | Output | | | | | + +--------+ + + + | Cardiac | 1.95 | l/min/m2 | [facility] | | | Index | | | | | + +--------+ + + + | Vitals | 114 | | [facility] | | | Heart Rate | | | | | | Rest | | | | | + +--------+ + + + | Vitals BP | 135 | | [facility] | | | Systolic | | | | | + +--------+ + + + | Vitals BP | 78 | | [facility] | | | Diastolic | | | | | + +--------+ + + + | Vitals | 67.0 | | [facility] | | | Height | | | | | + +--------+ + + + | Vitals | 134.00 | | [facility] | | | Weight | | | | | + +--------+ + + + | Aortic Root | 2.62 | cm | [facility] | | | Diameter | | | | | + +--------+ + + + | IVS | 1.58 | cm | [facility] | | | Diastolic | | | | | | Thickness | | | | | | MM | | | | | + +--------+ + + + | LVPW | 1.46 | cm | [facility] | | | Diastolic | | | | | | Thickness | | | | | | MM | | | | | + +--------+ + + + | IVS | 1.77 | cm | [facility] | | | Systolic | | | | | | Thickness | | | | | | MM | | | | | + +--------+ + + + | LV Systolic | 2 | cm | [facility] | | | Diameter | | | | | | MM | | | | | + +--------+ + + + | LVPW | 1.84 | cm | [facility] | | | Systolic | | | | | | Thickness | | | | | | MM | | | | | + +--------+ + + + | AV Cusp | 1.16 | cm | [facility] | | | Seperation | | | | | | MM | | | | | + +--------+ + + + | LA Systolic | 3.63 | cm | [facility] | | | Diameter | | | | | | MM | | | | | + +--------+ + + + | TAPSE | 1.24 | cm | [facility] | | + +--------+ + + + | LVEF-TTE | 55 | % | [facility] | | | TRANSTHORAC | | | | | | IC ECHO | | | | | + +--------+ + + + + + | Specimen | + + | | + + + + + | Narrative | Performed At | + + + | Normal left | [facility] | | ventricular size, moderate concentric hypertrophy and normal systolic | | | function EF 55%.Right ventricle appears normal in size however | | | moderately impaired systolic function, TPASE 1.2 cm.Intraventricular | | | septum flattening in systole and diastole indicating significant | | | elevated right-sided pressure.Intra-atrial septal bowing to the left | | | indicating increased right-sided pressure.Significant tricuspid | | | regurgitation, pulmonary pressures (RVSP 42 mmHg) underestimated | | | secondary to severity of the tricuspid regurgitation.No pericardial | | | effusion. | | |No pericardial effusion. | | + + + + +---------+ + + | Performing | Address | City/State/Zipcode | Phone Number | | Organization | | | | + +---------+ + + | [facility] | | | | + +---------+ + + PTT (01/14/2020 10:53 AM PDT) + + + + + + | Component | Value | Ref Range | Performed | Pathologist | | | | | At | Signature | + + + + + + | PTT | 26Comment: Testing | 23 - 32 seconds | [facility] | | | | performed at [facility];[address] | | LABORATORY | | | | [address];[place], [place] | | | | | | [address] | | | | + + + + + + + + | Specimen | + + | Blood | + + + + + + + | Performing | Address | City/State/Zipcode | Phone Number | | Organization | | | | + + + + + | [facility] | [address] [facility] | [place] [address] | [phone] | + + + + + VAS Lower Extremity Venous Bilateral (01/14/2020 10:48 AM PDT) + + | Specimen | + + | | + + + + + | Impressions | Performed At | + + + | Bilateral lower extremity ultrasound negative for DVT. | [facility] | | Final Report Signed by: Clay Montoya, [place] Sign Date/Time: 01/14/2020 | | | 11:09 AM | | + + + + + + | Narrative | Performed At | + + + | BILATERAL VENOUS DUPLEX LOWER EXTREMITY CLINICAL INFORMATION: | [facility] | | Pulmonary embolism. COMPARISON: None PROCEDURE: Duplex and | | | color Doppler evaluation of the veins of the lower extremities | | | including compression, spectral analysis and Doppler response to | | | distal compression, Valsalva, and/or other maneuvers. FINDINGS: | | | Right Lower Extremity: The common femoral vein, femoral vein and | | | popliteal vein are compressible with normal augmentation. Greater | | | saphenous vein unremarkable. Left Lower Extremity: The common | | | femoral vein, femoral vein and popliteal vein are compressible with | | | normal augmentation. Greater saphenous vein unremarkable. | | + + + + + | Procedure Note | + + | [facility], [id number] - 01/14/2020 11:13 AM PDT | | BILATERAL VENOUS DUPLEX LOWER EXTREMITY | | | | CLINICAL INFORMATION: | | Pulmonary embolism. | | | | COMPARISON: | | None | | | | PROCEDURE: | | Duplex and color Doppler evaluation of the veins of the lower | | extremities including compression, spectral analysis and Doppler | | response to distal compression, Valsalva, and/or other maneuvers. | | | | FINDINGS: | | Right Lower Extremity: | | The common femoral vein, femoral vein and popliteal vein are | | compressible with normal augmentation. Greater saphenous vein | | unremarkable. | | | | Left Lower Extremity: | | The common femoral vein, femoral vein and popliteal vein are | | compressible with normal augmentation. Greater saphenous vein | | unremarkable. | | | | IMPRESSION: | | Bilateral lower extremity ultrasound negative for DVT. | | | | | | | | Final Report Signed by: Clay Montoya Isaac | | Sign Date/Time: 01/14/2020 11:09 AM | + + + +---------+ + + | Performing | Address | City/State/Zipcode | Phone Number | | Organization | | | | + +---------+ + + | [facility] | | | | + +---------+ + + POC Glucose (01/14/2020 6:46 AM PDT) + + + + + + | Component | Value | Ref Range | Performed | Pathologist | | | | | At | Signature | + + + + + + | Glucose, | 125 (H)Comment: Testing | 65 - 99 mg/dL | [facility] | | | POC | performed at [facility];[address] | | LABORATORY | | | | [address];[place] | | | | | | [address] | | | | + + + + + + + + | Specimen | + + | | + + + + + + + | Performing | Address | City/State/Zipcode | Phone Number | | Organization | | | | + + + + + | [facility] | [address] | [place] [address] | [phone] | + + + + + PTT (01/14/2020 6:29 AM PDT) + + + + + + | Component | Value | Ref Range | Performed | Pathologist | | | | | At | Signature | + + + + + + | PTT | 26Comment: Testing | 23 - 32 seconds | [facility] | | | | performed at [facility];[address] | | LABORATORY | | | | [address];[place] | | | | | | [address] | | | | + + + + + + + + | Specimen | + + | Blood | + + + + + + + | Performing | Address | City/State/Zipcode | Phone Number | | Organization | | | | + + + + + | [facility] | [address] | [place] [address] | [phone] | + + + + + Magnesium (01/14/2020 6:29 AM PDT) + + + + + + | Component | Value | Ref Range | Performed | Pathologist | | | | | At | Signature | + + + + + + | Magnesium | 1.9Comment: Testing | 1.7 - 2.4 mg/dL | [facility] | | | | performed at [facility];[address] | | LABORATORY | | | | [address];[place] | | | | | | [address] | | | | + + + + + + + + | Specimen | + + | Blood | + + + + + + + | Performing | Address | City/State/Zipcode | Phone Number | | Organization | | | | + + + + + | [facility] | [address] [facility] [address] | [place] [address] | [phone] | + + + + + Comprehensive Metabolic Panel (01/14/2020 6:29 AM PDT) + + + + + + | Component | Value | Ref Range | Performed | Pathologist | | | | | At | Signature | + + + + + + | Na | 137 | 135 - 145 | [facility] | | | | | mmol/L | LABORATORY | | + + + + + + | K | 4.5 | 3.5 - 4.9 | [facility] | | | | | mmol/L | LABORATORY | | + + + + + + | Cl | 109 | 99 - 109 mmol/L | [facility] | | | | | | LABORATORY | | + + + + + + | CO2 | 20 (L) | 23 - 32 mmol/L | [facility] | | | | | | LABORATORY | | + + + + + + | Anion Gap | 13 | 5 - 20 mmol/L | [facility] | | | | | | LABORATORY | | + + + + + + | Glucose | 139 (H) | 65 - 99 mg/dL | [facility] | | | | | | LABORATORY | | + + + + + + | BUN | 16 | 8 - 25 mg/dL | [facility] | | | | | | LABORATORY | | + + + + + + | Creatinine | 0.91 | 0.50 - 1.00 | [facility] | | | | | mg/dL | LABORATORY | | + + + + + + | BUN/Creatin | 18 | | [facility] | | | ine Ratio | | | LABORATORY | | + + + + + + | Calcium | 8.7 | 8.5 - 10.5 | [facility] | | | | | mg/dL | LABORATORY | | + + + + + + | Protein, | 5.7 (L) | 6.3 - 8.2 g/dL | [facility] | | | Total | | | LABORATORY | | + + + + + + | Albumin | 3.6 | 3.3 - 4.8 g/dL | [facility] | | | | | | LABORATORY | | + + + + + + | Globulin | 2.1 | 1.3 - 4.9 g/dL | [facility] | | | | | | LABORATORY | | + + + + + + | A/G Ratio | 1.7 | 1.0 - 2.4 | [facility] | | | | | | LABORATORY | | + + + + + + | BILIRUBIN, | 0.6 | 0.1 - 1.5 mg/dL | [facility] | | | TOTAL | | | LABORATORY | | + + + + + + | ALK PHOS | 137 (H) | 35 - 115 U/L | [facility] | | | | | | LABORATORY | | + + + + + + | AST | 382 (H) | 10 - 45 U/L | [facility] | | | | | | LABORATORY | | + + + + + + | ALT | 266 (H) | 10 - 65 U/L | [facility] | | | | | | LABORATORY | | + + + + + + | Estimated | 60 (L)Comment: GFR <60: | >60 | [facility] | | | GFR | CHRONIC KIDNEY DISEASE, | mL/min/1.73m2 | LABORATORY | | | | IF FOUND OVER A 3 MONTH | | | | | | PERIOD.GFR <15: KIDNEY | | | | | | FAILURE.FOR | | | | | | AMERICANS, MULTIPLY THE | | | | | | CALCULATED GFR BY | | | | | | 1.210.This eGFR is | | | | | | calculated using the | | | | | | MDRD IDMS traceable | | | | | | equation.Testing | | | | | | performed at [facility];[address] | | | | | | [facility];[place], [place] | | | | | | [address] | | | | + + + + + + + + | Specimen | + + | Blood | + + + + + + + | Performing | Address | City/State/Zipcode | Phone Number | | Organization | | | | + + + + + | [facility] | [address] | [place] [address] | [phone] | + + + + + CBC with Differential (01/14/2020 6:29 AM PDT) + + + + + + | Component | Value | Ref Range | Performed | Pathologist | | | | | At | Signature | + + + + + + | WBC | 18.38 (H) | 3.80 - 11.00 | [facility] | | | | | K/uL | LABORATORY | | + + + + + + | Red Blood | 3.73 | 3.70 - 5.10 | [facility] | | | Cells | | M/uL | LABORATORY | | + + + + + + | Hemoglobin | 11.3 | 11.3 - 15.5 | [facility] | | | | | g/dL | LABORATORY | | + + + + + + | Hematocrit | 35.2 | 34.0 - 46.0 % | [facility] | | | | | | LABORATORY | | + + + + + + | MCV | 94.4 | 80.0 - 100.0 fl | [facility] | | | | | | LABORATORY | | + + + + + + | MCH | 30.3 | 27.0 - 34.0 pg | [facility] | | | | | | LABORATORY | | + + + + + + | MCHC | 32.1 | 32.0 - 35.5 | [facility] | | | | | g/dL | LABORATORY | | + + + + + + | RDW-SD | 45.1 | 37 - 53 fl | [facility] | | | | | | LABORATORY | | + + + + + + | Platelet | 227 | 150 - 400 K/uL | [facility] | | | Count | | | LABORATORY | | + + + + + + | MPV | 10.4Comment: NO NORMAL | fl | [facility] | | | | RANGE ESTABLISHED | | LABORATORY | | + + + + + + | Diff Type | AUTOMATED | | [facility] | | | | | | LABORATORY | | + + + + + + | % nRBC | 0.0 | 0 /100WBC | [facility] | | | | | | LABORATORY | | + + + + + + | % | 86.40 | % | [facility] | | | Neutrophils | | | LABORATORY | | + + + + + + | IMMATURE | 0.70 | % | [facility] | | | GRANULOCYTE | | | LABORATORY | | + + + + + + | % | 5.10 | % | [facility] | | | Lymphocytes | | | LABORATORY | | + + + + + + | Monocyte % | 7.30 | % | [facility] | | | | | | LABORATORY | | + + + + + + | Eosinophils | 0.20 | % | [facility] | | | % | | | LABORATORY | | + + + + + + | Basophils % | 0.30 | % | [facility] | | | | | | LABORATORY | | + + + + + + | Neutrophils | 15.90 (H) | 1.90 - 7.40 | [facility] | | | , Absolute | | K/uL | LABORATORY | | + + + + + + | IMMATURE | 0.12 (H)Comment: NOTE | 0.00 - 0.07 | [facility] | | | GRANS AB | NEW REFERENCE RANGE | K/uL | LABORATORY | | + + + + + + | Absolute | 0.93 (L) | 1.00 - 3.90 | [facility] | | | Lymphocytes | | K/uL | LABORATORY | | + + + + + + | Absolute | 1.34 (H) | 0.00 - 0.80 | [facility] | | | Monocytes | | K/uL | LABORATORY | | + + + + + + | Eosinophils | 0.03 | 0.00 - 0.50 | [facility] | | | , Absolute | | K/uL | LABORATORY | | + + + + + + | Basophils, | 0.06Comment: Testing | 0.00 - 0.10 | [facility] | | | Absolute | performed at [facility];[address] | K/uL | LABORATORY | | | | [address];[place], [place] | | | | | | [address] | | | | + + + + + + + + | Specimen | + + | Blood | + + + + + + + | Performing | Address | City/State/Zipcode | Phone Number | | Organization | | | | + + + + + | [facility] | [address] | [place] [address] | [phone] | + + + + + ECG 12 lead (01/14/2020 5:14 AM PDT) + + + + + + | Component | Value | Ref Range | Performed | Pathologist | | | | | At | Signature | + + + + + + | VENTRICULAR | 117 | BPM | [facility] | | | RATE EKG | | | | | + + + + + + | ATRIAL RATE | 117 | BPM | [facility] | | + + + + + + | P-R | 144 | ms | [facility] | | | INTERVAL | | | | | + + + + + + | QRS | 88 | ms | [facility] | | | DURATION | | | | | + + + + + + | Q-T | 352 | ms | [facility] | | | INTERVAL | | | | | + + + + + + | Q-T | 491 | ms | [facility] | | | INTERVAL | | | | | | (CORRECTED) | | | | | + + + + + + | P WAVE AXIS | 86 | degrees | [facility] | | + + + + + + | QRS AXIS | 73 | degrees | [facility] | | + + + + + + | T AXIS | 57 | degrees | [facility] | | + + + + + + | INTERPRETAT | This ECG contains | | [facility] | | | ION TEXT | Unconfirmed | | | | | | Interpretation | | | | | | Statements. See ED | | | | | | Record for Physician | | | | | | Interpretation. Sinus | | | | | | tachycardia with | | | | | | Premature atrial | | | | | | complexesNonspecific ST | | | | | | and T wave | | | | | | abnormalityAbnormal | | | | | | ECGWhen compared with | | | | | | ECG of 12-DEC-2019 | | | | | | 12:45,Nonspecific T wave | | | | | | abnormality now evident | | | | | | in Anterior | | | | | | leadsConfirmed by MUSE | | | | | | READ ONLY, -COMPUTER | | | | | | ([id number]), film or videotape editor Sharma, | | | | | | Nirali ([id number]) on | | | | | | 01/16/2020 6:11:01 AM | | | | + + + + + + + + | Specimen | + + | | + + + + + | Narrative | Performed At | + + + | | | + + + + +---------+ + + | Performing | Address | City/State/Zipcode | Phone Number | | Organization | | | | + +---------+ + + | [facility] | | | | + +---------+ + + Coronavirus (COVID-19) NAAT (01/14/2020 4:37 AM PDT) + + + + + + | Component | Value | Ref Range | Performed | Pathologist | | | | | At | Signature | + + + + + + | SARS-CoV-2, | NEGATIVEComment: This | NEG | [facility] | | | NAAT | test was developed and | | LABORATORY | | | (COVID-19) | its performance | | | | | | characteristics | | | | | | determined by[employer]. It | | | | | | has not been cleared or | | | | | | approved by the [place] FDA. | | | | | | This test has | | | | | | beenauthorized by FDA | | | | | | under an Emergency Use | | | | | | Authorization (EUA). | | | | | | Clinicians shouldbe | | | | | | advised to consider a | | | | | | patients signs, | | | | | | symptoms, history, and | | | | | | results ofother | | | | | | diagnostic tests when | | | | | | interpreting | | | | | | results.Testing | | | | | | performed at [facility] | | | | | | [facility];[place] | | | | | | [address] | | | | + + + + + + + + | Specimen | + + | Tissue - Entire | | nasopharynx (body | | structure) | + + + + + + + | Performing | Address | City/State/Zipcode | Phone Number | | Organization | | | | + + + + + | [facility] | [address] | [place] [address] | [phone] | + + + + + documented in this encounter Visit Diagnoses + + | Diagnosis | + + | Pulmonary embolism, bilateral (HCC) Other pulmonary embolism and infarction | + + | Shortness of breath | + + | Syncope, unspecified syncope type | + + | Acute pulmonary embolism with acute cor pulmonale, unspecified pulmonary embolism type | | (HCC) | + + | 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 Recheck | | | blood glucose 30 minutes after | | | starting D10W then at least | | | hourly and PRN until it is | | | discontinued. Call provider to | | | discuss parameters for D10W | | | discontinuation., | | + +---+ | | | + +---+ | dextrose 50% injection 12.5-25 | | | g 12.5-25 g, Intravenous, PRN, | | | Low Blood Sugar, Starting Sat | | | 01/14/20 at 0759, For blood | | | glucose 50-69 mg/dl - give 12.5 g | | | For blood glucose less than 50 | | | mg/dl - give 25 g, | | + +---+ | | | + +---+ | heparin 1,000 units/mL | | | injection 2,400-4,900 Units | | | 2,400-4,900 Units, Intravenous, | | | PRN, Protocol/Titration, Starting | | | 01/14/20 at 1054, FULL DOSE | | | HEPARIN PROTOCOL STARTING | | | heparin infusion dose 18 | | | units/kg/hr, MAX INITIAL RATE is | | | 1,800 units/hr. Draw aPTT from an | | | IV site other than heparin IV | | | site 6 hours after starting | | | infusion and every 6 hours until | | | 2 consecutive aPTTs in | | | therapeutic range, then every AM | | | (Adjust heparin infusion by the | | | nomogram below after each aPTT). | | | If infusion is stopped per | | | protocol, order aPTT 6 hours from | | | the time infusion is stopped. | | | aPTT < 20 seconds: Bolus 4,900 | | | units and Increase rate by 4 | | | units/kg/hr Repeat aPTT 6 hr | | | after change aPTT 20-29 seconds: | | | Bolus 2,400 units and Increase | | | rate by 2 units/kg/hr Repeat aPTT | | | 6 hr after change aPTT 30-45 | | | seconds: Increase rate by 2 | | | units/kg/hr Repeat aPTT 6 hr | | | after change aPTT 46-67 seconds | | | (GOAL RANGE): No Change aPTT | | | 68-75 seconds: Decrease rate by 1 | | | unit/kg/hr Repeat aPTT 6 hr | | | after change aPTT 76-82 seconds: | | | Stop infusion for 30 minutes | | | Decrease rate by 2 units/kg/hr | | | Repeat aPTT 6 hr after change | | | aPTT 83-89 seconds: Stop infusion | | | for 60 minutes Decrease rate by | | | 3 units/kg/hr Repeat aPTT 6 hr | | | after change aPTT 90-95 seconds: | | | Stop infusion for 90 minutes | | | Decrease rate by 4 units/kg/hr | | | Repeat aPTT 6 hr after change | | | aPTT > 95 seconds: Stop infusion | | | and redraw a stat aPTT from | | | alternate site. If > 95 seconds, | | | contact pharmacist for guidance , | | | | | + +---+ | | | + +---+ + +---------+ + +-------+---+ | heparin in half-normal saline | New Bag | 01/14/20 | 18 | 10.9 | | | 100 units/mL infusion 18 | | 20 11:52 | Units/kg | mL/hr | | | Units/kg/hr | | AM PDT | /hr | | | | 60.8 kg (10.944 mL/hr, rounded | | | | | | | to 10.9 mL/hr), at 10.9 mL/hr, | | | | | | | Intravenous, TITRATED, Starting | | | | | | | 01/14/20 at 1130, FULL DOSE | | | | | | | HEPARIN PROTOCOL STARTING | | | | | | | heparin infusion dose 18 | | | | | | | units/kg/hr, MAX INITIAL RATE is | | | | | | | 1,800 units/hr. Draw aPTT from an | | | | | | | IV site other than heparin IV | | | | | | | site 6 hours after starting | | | | | | | infusion and every 6 hours until | | | | | | | 2 consecutive aPTTs in | | | | | | | therapeutic range, then every AM | | | | | | | (Adjust heparin infusion by the | | | | | | | nomogram below after each aPTT). | | | | | | | If infusion is stopped per | | | | | | | protocol, order aPTT 6 hours from | | | | | | | the time infusion is stopped. | | | | | | | aPTT < 20 seconds: Bolus 4,900 | | | | | | | units and Increase rate by 4 | | | | | | | units/kg/hr Repeat aPTT 6 hr | | | | | | | after change aPTT 20-29 seconds: | | | | | | | Bolus 2,400 units and Increase | | | | | | | rate by 2 units/kg/hr Repeat aPTT | | | | | | | 6 hr after change aPTT 30-45 | | | | | | | seconds: Increase rate by 2 | | | | | | | units/kg/hr Repeat aPTT 6 hr | | | | | | | after change aPTT 46-67 seconds | | | | | | | (GOAL RANGE): No Change aPTT | | | | | | | 68-75 seconds: Decrease rate by 1 | | | | | | | unit/kg/hr Repeat aPTT 6 hr | | | | | | | after change aPTT 76-82 seconds: | | | | | | | Stop infusion for 30 minutes | | | | | | | Decrease rate by 2 units/kg/hr | | | | | | | Repeat aPTT 6 hr after change | | | | | | | aPTT 83-89 seconds: Stop infusion | | | | | | | for 60 minutes Decrease rate by | | | | | | | 3 units/kg/hr Repeat aPTT 6 hr | | | | | | | after change aPTT 90-95 seconds: | | | | | | | Stop infusion for 90 minutes | | | | | | | Decrease rate by 4 units/kg/hr | | | | | | | Repeat aPTT 6 hr after change | | | | | | | aPTT > 95 seconds: Stop infusion | | | | | | | and redraw a stat aPTT from | | | | | | | alternate site. If > 95 seconds, | | | | | | | contact pharmacist for guidance , | | | | | | | | | | | | | + +---------+ + +-------+---+ + +---+ | | | + +---+ | insulin lispro (humaLOG, | | | ADMELOG) injection (vial) 0-6 | | | Units Correction Scale: Low Dose | | | (SENSITIVE): Total Daily Dose | | | less than 40 units, Day/NPO Blood | | | Glucose (BG) below 150: (units): | | | 0, Day/NPO BG 150-200: (units): | | | 1, Day/NPO BG 201-250: (units): | | | 2, Day/NPO BG 251-300: (units): | | | 3, Day/NPO BG 301-350: (units): | | | 4, Day/NPO BG 351-400: (units): | | | 5, Day/NPO BG above 400: (units): | | | 6, Night BG below 150: (units): | | | 0, Night BG 150-200: (units): 0, | | | Night BG 201-250: (units): 1, | | | Night BG 251-300: (units): 2, | | | Night BG 301-350: (units): 3, | | | Night BG 351-400: (units): 4, | | | Night BG above 400: (units): 5, | | | BG above 400 additional | | | instructions: GIVE DOSE AND CALL | | | PROVIDER, Subcutaneous, 4 TIMES | | | DAILY BEFORE MEALS & NIGHTLY, | | | First dose on 01/14/20 at | | | 0930, Use DAY/NPO DOSE for doses | | | scheduled: AC, NPO, Daytime | | | [id number] Use NIGHT DOSE for | | | doses scheduled: HS, | | | Nighttime [id number] If the BG is | | | not checked before the patient | | | starts eating, do not give | | | correction insulin. Only for use | | | with U-100 insulin syringe., | | + +---+ | | | + +---+ + +-------+ +------+---+---+ | morphine injection 2 mg 2 mg, | Given | 01/14/20 | 2 mg | | | | Intravenous, ONCE, 01/14/20 at | | 20 12:43 | | | | | 1300, For 1 dose | | PM PDT | | | | + +-------+ +------+---+---+ +---+---+ | | | +---+---+ + +-------+ +------+---+---+ | morphine injection 2-6 mg 2-6 | Given | 01/14/20 | 2 mg | | | | mg, Intravenous, EVERY 2 HOURS | | 20 12:10 | | | | | PRN, Pain, Starting 01/14/20 | | PM PDT | | | | | at 0759, Slow IV push, not faster | | | | | | | than 2 mg/minute. If ineffective | | | | | | | or not tolerated, use | | | | | | | hydromorphone IV if ordered., | | | | | | + +-------+ +------+---+---+ +-------+ +------+---+---+ | Given | 01/14/20 | 2 mg | | | | | 20 9:14 | | | | | | AM PDT | | | | +-------+ +------+---+---+ +---+---+ | | | +---+---+ + +-------+ +------+---+---+ | ondansetron (ZOFRAN) injection | Given | 01/14/20 | 4 mg | | | | 4-8 mg 4-8 mg, Intravenous, | | 20 12:42 | | | | | EVERY 6 HOURS PRN, Nausea, | | PM PDT | | | | | Vomiting, Starting 01/14/20 at | | | | | | | 0759, First line agent, | | | | | | + +-------+ +------+---+---+ +---+---+ | | | +---+---+ documented in this encounter Additional Health Concerns + + + + + | Infection | Onset Date | Last Indicated | Resolved Time | + + + + + | Rule out COVID-19 | 01/14/2020 | 01/14/2020 | 01/14/2020 5:50 AM | | | | | PDT | + + + + + documented as of this encounter
--- OUTSIDE RECORDS SUMMARY | ~2020-01-31 | XMS | Encounter Summary ---
Demographics + + + | Address | [address] | | | [place] [address] | + + + | Home Phone | | + + + | Preferred Language | Unknown | + + + | Marital Status | | + + + | Episcopal Affiliation | 1077 | + + + | Race | White | + + + | Ethnic Group | Not or | + + + Author + + + | Author | [facility] | | | and [place] | + + + | Organization | [facility] | | | [...] [place] | | | | | [address] | | + + + + + | Todd Paris | ECON | Unknown | | + + + + + Care Team Providers + +------+ + | Care Head Of Business Development Name | Role | Phone | + +------+ + | Lamont Santoyo MD | PCP | | + +------+ + Reason for Referral Diagnostic/Screening (Routine) + +--------+ + + + + | Status | Reason | Specialty | Diagnoses / | Referred By | Referred To | | | | | Procedures | Contact | Contact | + +--------+ + + + + | Pending | | Radiology | Diagnoses | [place], | [facility] | | Review | | | Malignant | Pepe Gallegos MD | REGIONAL | | | | | melanoma of | [address] | MEDICAL | | | | | finger of | [address] | [address] | | | | | right hand | [address] | | | | | (HCC) | [place], [place] | [place] | | | | | Procedures | [address] | [address] | | | | | NM Lymph | Phone: | Phone: | | | | | System | [phone] | [phone] | | | | | Melanoma | Fax: | Fax: | | | | | | [phone] | [phone] | + +--------+ + + + + Encounter Details +--------+ + + + + | Date | Type | Department | Care Team | Description | +--------+ + + + + | 12/07/ | Orders Only | [facility] | Pepe Stone, | Malignant melanoma | | 2019 | | GENERAL SURGERY [address] | MD [address] | of finger of right | | | | [address] | [address] [place], | hand (HCC) (Primary | | | | [place], [place] | [place] [address] | Dx) | | | | [address] | [phone] | | | | | [phone] | | | +--------+ + + + [...] [place] | | | | | | [place] [address] | | | | | | [phone] | | | | | | | | +--------+---------+ + + + | 02/01/ | Office | Orthopedic Surgery | David Gomez, | | | 2019 | Visit | | [address] | | | | | | [place] [address] | | | | | | [phone] | | | | | | | | +--------+---------+ + + + documented as of this encounter Results NM Lymph System Melanoma (12/13/2019 3:51 PM PDT) + + | Specimen | + + | | + + + + + | Impressions | Performed At | + + + | Successful right axillary sentinel node marking. Successful | [facility] | | lymphoscintigraphy with identification and marking of a lymph node. | | | Final Report Signed by: Clay Pan Shawn Sign Date/Time: | | | 12/15/2019 12:56 PM | | + + + + + + | Narrative | Performed At | + + + | NM LYMPH SYSTEM MELANOMA CLINICAL INFORMATION: Pre | [facility] | | operative, Patient is scheduled for surgery on 12/13/19 COMPARISON: | | | None PROCEDURE: Radiopharmaceutical was prepared by the nuclear | | | emergency medicine specialist. The right index finger was prepped in the | | | usual sterile fashion with ChloraPrep. Local 1% buffered lidocaine | | | anesthesia was applied. Intradermal injection of a total of 1.0 mCi | | | filtered technetium 99m sulfur colloid was performed. Patient was | | | imaged for 32 minutes post injection with lymph node activity noted | | | in the left axilla at 27 minutes post injection, confirmed on right | | | lateral image at 32 minutes. Lymph node activity was marked on the | | | patient's skin in the right axilla by Dr. Joseph. Patient | | | tolerated procedure well without immediate post procedure | | | complications or complaints. FINDINGS: Successful right axillary | | | sentinel lymph node marking. | | + + + + + | Procedure Note | + + | Jaquan, [id number] - 12/15/2019 12:59 PM PDT | | NM LYMPH SYSTEM MELANOMA | | | | CLINICAL INFORMATION: | | Pre operative, Patient is scheduled for surgery on 12/13/19 | | | | COMPARISON: | | None | | | | PROCEDURE: | | Radiopharmaceutical was prepared by the nuclear pharmacist. | | The right index finger was prepped in the usual sterile fashion with | | ChloraPrep. Local 1% buffered lidocaine anesthesia was applied. | | Intradermal injection of a total of 1.0 mCi filtered technetium 99m | | sulfur colloid was performed. | | | | Patient was imaged for 32 minutes post injection with lymph node | | activity noted in the left axilla at 27 minutes post injection, | | confirmed on right lateral image at 32 minutes. | | Lymph node activity was marked on the patient's skin in the right | | axilla by Dr. Joseph. | | | | Patient tolerated procedure well without immediate post procedure | | complications or complaints. | | | | FINDINGS: | | Successful right axillary sentinel lymph node marking. | | | | IMPRESSION: | | Successful right axillary sentinel node marking. | | | | Successful lymphoscintigraphy with identification and marking of a | | lymph node. 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
--- OUTSIDE RECORDS SUMMARY | ~2020-01-31 | XMS | Encounter Summary ---
Demographics + + + | Address | [address] | | | [place] [address] | + + + | Home Phone | | + + + | Preferred Language | Unknown | + + + | Marital Status | | + + + | Holiness Affiliation | 1077 | + + + | Race | White | + + + | Ethnic Group | Not or | + + + Author + + + | Author | [facility] | | | and [place] | + + + | Organization | [facility] | | | and [...] [place] | | | | | [address] | | + + + + + | Todd Paris | ECON | Unknown | | + + + + + Care Team Providers + +------+ + | Care Chop Saw Operator Name | Role | Phone | + +------+ + | Lamont Santoyo MD | PCP | | + +------+ + Reason for Visit +--------+--------+ + | Reason | Onset | Comments | | | Date | | +--------+--------+ + | Other | 01/18/ | information | | | 2019 | | +--------+--------+ + Encounter Details +--------+ + + + + | Date | Type | Department | Care Team | Description | +--------+ + + + + | 01/18/ | Telephone | [facility] | Pepe Stone, | Other (information ) | | 2019 | | GENERAL SURGERY [address] | MD [address] | | | | | [address] | [address] [place], | | | | | [place], [place] | [place] [address] | | | | | [address] | [phone] | | | | | [phone] | | | +--------+ + + + [...] Telephone Encounter - Nirali Valdovinos RN - 01/19/2020 3:26 PM PDTSharon verified two pat ient identifiers. Returned call to patient to schedule follow up. Patient states her drain was pulled while she was in patient. Patient states she has 2 stit ches which will need to be removed. Patient states she will contact her PCP to see if they w ill take out sutures. Patient scheduled with Dr. Stone on 02/01/2020 1015. Fátima verbalized understanding and agreed with plan. elephone Encounter - Elizabet Khan - 01/19/2020 2:32 PM PDTSharoellie, is calling regarding Other (informatio n ) and would like a call back. Additional Call Details: Patient wants to make sure we received her records from [facility]. She also wants to see when her stitches are supposed to out. Please call home number. If this is a symptom based call, was patient offered triage? Not Applicable If this is a symptom based call and you were unable to immediately transfer the call to a marlena tamez dye house wheel operator was caller made aware that if at [...] | | | | | | [place] [address] | | | | | | [phone] | | | | | | | | +--------+---------+ + + + | 02/01/ | Office | Orthopedic Surgery | David Gomez, | | | 2019 | Visit | | [address] | | | | | | [place] [address] | | | | | | [phone] | | | | | | | | +--------+---------+ + + + documented as of this encounter Visit Diagnoses Not on filedocumented in this encounter
--- OUTSIDE RECORDS SUMMARY | ~2020-01-31 | XMS | Encounter Summary ---
Demographics + + + | Address | [address] | | | [place] [address] | + + + | Home Phone | | + + + | Preferred Language | Unknown | + + + | Marital Status | | + + + | Episcopal Affiliation | 1077 | + + + | Race | White | + + + | Ethnic Group | Not or | + + + Author + + + | Author | [facility] | | | and [place] | + + + | Organization | [facility] | | | [...] [place] | | | | | [address] | | + + + + + | Todd Paris | ECON | Unknown | | + + + + + Care Team Providers + +------+ + | Care Training And Quality Manager Name | Role | Phone | + +------+ + | Lamont Santoyo MD | PCP | | + +------+ + Reason for Referral Evaluate & Treat (Routine) +--------+ + + + + + | Status | Reason | Specialty | Diagnoses / | Referred By | Referred To | | | | | Procedures | Contact | Contact | +--------+ + + + + + | Closed | Specialty | Physical | Diagnoses | [place], | [place], | | | Services | Medicine and | Compression | Andrew | Abiodun Conley MD | | | Required | Rehabilitatio | fracture of | [place] | [address] | | | | n | L2 lumbar | [address] | | | | | vertebra, | [address]VE | [place], [place] | | | | | closed, | [place] | [address] Phone: | | | | | initial | [phone] | [phone] | | | | | encounter | Phone: | Fax: | | | | | ([facility]) | [phone] | [phone] | | | | | Compression | Fax: | | | | | | fracture of | [phone] | | | | | | L3 lumbar | | | | | | | vertebra, | | | | | | | closed, | | | | | | | initial | | | | | | | encounter | | | | | | | (HCC) | | | | | | | Compression | | | | | | | fracture of | | | | | | | L1 lumbar | | | | | | | vertebra | | | | | | | with routine | | | | | | | healing | | | | | | | Spondylolist | | | | | | | hesis of | | | | | | | lumbar | | | | | | | region | | | | | | | Osteoporosis | | | | | | | with | | | | | | | current | | | | | | | pathological | | | | | | | fracture, | | | | | | | unspecified | | | | | | | osteoporosis | | | | | | | type, | | | | | | | initial | | | | | | | encounter | | | +--------+ + + + + + Reason for Visit + + + | Reason | Comments | + + + | Back Pain | Mid-low back | + + + Evaluate & Treat (Routine) +--------+--------+ + + + + | Status | Reason | Specialty | Diagnoses / | Referred By | Referred To | | | | | Procedures | Contact | Contact | +--------+--------+ + + + + | Closed | | Neurosurgery | Diagnoses | [place] | [place] | | | | | Low back | Lamont Segal MD [address] | | | | | pain | MD [place] | [address] | | | | | | [address] | [place] | | | | | | [address] | [address] | | | | | | [place], | Phone: | | | | | | [place] [address] | [phone] | | | | | | Phone: | Fax: | | | | | | [phone] | [phone] | | | | | | Fax: | | | | | | | [phone] | | +--------+--------+ + + + + Encounter Details +--------+---------+ + + + | Date | Type | Department | Care Team | Description | +--------+---------+ + + + | 01/15/ | Office | [facility] | Andrew Mao | Compression fracture | | 2018 | Visit | NEUROSURGERY [address] | [place] [address] | of L1 lumbar | | | | [address] [place] | vertebra with | | | | [place] | [address] | routine healing | | | | [address] | | (Primary Dx); | | | | [phone] | | Compression fracture | | | | | | of L2 lumbar | | | | | | vertebra, closed, | | | | | | initial encounter | | | | | | (HCC); Compression | | | | | | fracture of L3 | | | | | | lumbar vertebra, | | | | | | closed, initial | | | | | | encounter (HCC); | | | | | | Spondylolisthesis of | | | | | | lumbar region; | | | | | | Osteoporosis with | | | | | | current pathological | | | | | | fracture, | | | | | | unspecified | | | | | | osteoporosis type, | | | | | | initial encounter | +--------+---------+ + + + Social History [...] + + + | Blood Pressure | 162/91 | 01/15/2018 9:17 AM | | | | | PDT | | + + + + + | Pulse | 96 | 01/15/2018 9:17 AM | | | | | PDT | | + + + + + | Temperature | - | - | | + + + + + | Respiratory Rate | 16 | 01/15/2018 9:17 AM | | | | | PDT | | + + + + + | Oxygen Saturation | - | - | | + + + + + | Inhaled Oxygen | - | - | | | Concentration | | | | + + + + + | Weight | 68.4 kg (150 lb 12.7 | 01/15/2018 9:17 AM | | | | oz) | PDT | | + + + + + | Height | 172.7 cm (5' 8") | 01/15/2018 9:17 AM | | | | | PDT | | + + + + + | Body Mass Index | 22.93 | 01/15/2018 9:17 AM | | | | | PDT | | + + + + + documented in this encounter Patient Instructions Patient Instructions Marilu Rodney, Storeroom Attendant - 01/15/2018 9:00 AM PDTIt was a ple asure to see you today. Here is what we discussed. - I recommend you speak to you PCP to aggressively begin treating your osteoporosis. Treatm ent includes medications, healthy diet, and weight-bearing exercise to help prevent bone los s or strengthen already weak bones. -I also recommend a referral to Physiatry for conservative care. I will place the referral and they will contact you to schedule a consultation. -Let pain be your guide. If you are doing an activity that starts causing you pain back off and ease back into it slowly. We don't want you taking any risks that do not need to be jimena en. -Use good body mechanics, limit lifting up to 10-15 lbs. -Limit your time vacuuming and sweeping. Repetitive motion may aggravate your back pain. documented in this encounter Progress Notes Andrew Mao PA-C - 01/15/2018 9:00 AM PDTFormatting of this note might be differ ent from the original. Andrew Mao PA-C [address] [facility], [address] [place], [place] [address] FAX: [phone] NEUROSURGERY HISTORY AND PHYSICAL EXAMINATION CHIEF COMPLAINT: Chief Complaint Patient presents with Back Pain Mid-low back HISTORY OF PRESENT ILLNESS: The patient is a 77 y.o. female that presents with her for the complaint of back pain symptoms that began about 3 months ago. The patient describe s in October her back pain worsened. She does not recall an incident that may have caused her p ain to begin. In July she had an infection and was diagnosed with MRSA, she thinks this may have caused her back pain to begin but she is unsure. She complains of "mid/low" thoracic r egion pain and low back and buttock region, the right side worse than the left. She describe s both her thoracic and low back pain bother her equally. She has a difficult time standing up straight. She describes a pressure point that makes her unable to straighten up. She is a ble to relieve her low back pain with ice and OTC medication She complains of right arm numbness. This only occasionally happens at night when she is l aying on her right arm. The symptoms have been gradually worsening. She rates the pain as moderate. The symptoms are intermittent. She describes the pain as sharp, dull and tight band. On average she repo rts her back pain as 6/10 while doing simple daily activities. On her worst day she reports her pain as 7-8/10, on her best day her pain is 2/10. Her pain increases when she increases her activities. She denies pain, numbness, and tingling in the lower extremities. She does not have any pro blems with her balance. The patient does not report any change in bowel or bladder function recently. Her symptoms improve with rest, changing position and walking. Her symptoms worsen with standing. She has tried PT, Chiropractic and NSAIDS. Prior to her back pain she was actively going to the gym. She has tried chiropractic treatments for many years. The patient is currently jimena ing Advil . These measures are still helping at times. PAST MEDICAL HISTORY: Past Medical History: Diagnosis Date Adverse effect of anesthesia Vomiting with spinal for her appendectomy, memory loss for 5 days after gallbladder, aller gic reaction to pepcid prior to toe surgery 2 para 2 Hypertension Low back pain Muscle strain Strain of muscle, fascia and tendon of lower back, initial encounter Viral meningitis 1976,1982, 1986 Weight loss PAST SURGICAL HISTORY: Past Surgical History: Procedure Laterality Date APPENDECTOMY CHOLECYSTECTOMY 1963 HYSTERECTOMY 2011 and Bladder sling KNEE SURGERY 1970 Bone spur removed CURRENT MEDICATIONS: Current Outpatient Prescriptions Medication Sig Dispense Refill ascorbic acid (VITAMIN [...] capsule Take 1,000 mg by mouth Daily. Konenzcqnwb-Pwqygucwm-Bwq C-Mn (GLUCOSAMINE CHONDR 1500 COMPLX) CAPS Take 1 capsule by mouth Daily. ibuprofen (ADVIL, MOTRIN) 200 mg tablet Take 400 mg by mouth every 4 hours as needed. Multiple Vitamins-Minerals ([facility] PO) Take 1 tablet by mouth Daily. Vit-Fe Fumarate-FA ( COMPLETE) 14-0.4 MG TABS Take 1 tablet by mouth D aily. Probiotic Product (ADVANCED PROBIOTIC) CAPS Take 1 capsule by mouth Daily. No current facility-administered medications for this visit. ALLERGIES: Allergies Allergen Reactions Famotidine Other (See Comments) Cardiac arrest Meperidine Diarrhea and Nausea And Vomiting SOCIAL HISTORY: The patient reports that she quit smoking about 22 years ago. She has never used smokeless tobacco. She reports that she drinks about 8.4 oz of alcohol per week . She reports that sh e does not use drugs. FAMILY HISTORY: Family History Problem Relation Age of Onset Alzheimer's disease Mother TIA Other Breast cancer Neg Hx REVIEW OF SYSTEMS: GENERALLY: No fever, + night sweats, no anemia, + fatigue, + recent profound weight rivers es. EYES: No eye problems, no use of corrective lenses, no eye injury, no double vision, no bl indness. EARS, NOSE, AND THROAT: No changes in taste or smell, no hearing difficulty, no ringing in the ears, no ear drainage, no dizziness, no voice changes, no difficulty swallowing, no sig nificant snoring, no sleep apnea, no sinus problems, no major dental work. NEUROLOGICALLY: Please see the review of systems discussed above in the history of present illness. In addition, the patient has pain in back. PSYCHIATRIC: No depression, no sleep disorders, no anxiety, no bipolar disorder, no psycho tic episodes. CARDIOVASCULAR: No heart attacks, no heart murmur, no heart fluttering, no chest pain, no ankle swelling. LUNG DISEASE: No shortness of breath, + cough, no tuberculosis, no bloody cough, no asthm a, no emphysema/COPD. GASTROINTESTINAL: No bowel disease, no nausea or vomiting, no rectal bleeding, no constipa tion, no stool incontinence, no liver disease, no gallbladder disease, no abdominal pain, no ulcers. KIDNEY DISEASE: No urinary frequency, no painful or difficult urination, no incontinence. ENDOCRINE: No diabetes, no thyroid disease, no osteopenia or osteoporosis, no breast drain age. SKIN: No breast lumps, no skin changes, no rashes, no itches. HEMATOLOGIC/LYMPHATIC: No enlarged lymph nodes, no easy or unusual bleeding, no personal h istory of cancer. RHEUMATOLOGIC: No joint arthritis, no rheumatoid arthritis. PHYSICAL EXAMINATION: Blood pressure (!) 162/91, pulse 96, resp. rate 16, height 1.727 m (5' 8"), weight 68.4 kg (150 lb 12.7 oz). Body mass index is 22.93 kg/m. GENERAL: Fátima Paris is in no acute distress with unlabored respirations. The patient d oes not appear uncomfortable throughout the exam today. HEENT: Head: Normocephalic/atraumatic with no areas of recent trauma. Eyes: Normal scler ae without icterus. Ears: No drainage or tenderness. Nasopharnyx: Clear without drainage. Oropharnyx: Clear without erythema. NECK (ANTERIOR): Supple and without palpable masses. CHEST: Clear to ausculation without crackles or wheeze. HEART: Regular rate with Grade 2 murmur, heard throughout her precordium. It is partial an d louder in the aortic position and radiating to carotid arteries on both sides. ABDOMEN: Soft, non-tender, non-distended, and without palpable masses. The patient is not o bese. SPINE: There is no tenderness of there cervical or thoracic spine. The lumbar spine shows there is tenderness in the midline of the L1, L2, L3, L4 levels. To palpation, there is no significant myofascial tenderness. There is significant pain to provacative testing of the SI joint. Right worse than left There is no major deformity noted. EXTREMITIES: No cyanosis, clubbing, or edema. Distal pulses are palpable. NEUROLOGICAL EXAM: MENTAL STATUS: The patient is awake, alert, and oriented. She follows simple and complex commands. Her speech is fluent, she comprehends speech well, and she repeats well. She has no apparent deficits with short or intermediate accountant memory. CRANIAL NERVES: II: Acuity is intact. Tsang are full to confrontation. III, IV, : The pupils are reactive. Extraocular movements are intact. No ptosis is note d. V: Facial sensation is intact and symmetric. VII: Facial movements are symmetric. VIII: Hearing is intact bilaterally. IX, X: The uvula and palate move appropriately. XI: Shrug is equal bilaterally. XII: Tongue protrusion is midline. MOTOR EXAM: (5 IS NORMAL) * Indicates pain limited MUSCLE/ MOVEMENT: RIGHT LEFT Hip Flexion 5 5 Hip Extension 5 5 Knee Flexion 5 5 Knee Extension 5 5 Dorsiflexion 5 5 Extensor Hallicus Longus 5 5 Plantarflexion 5 5 SENSORY EXAM: Sensory exam shows no diminished sensation to light touch or pain throughout the upper and lower extremities. REFLEXES: (2 OR 2+ IS NORMAL) REFLEX: RIGHT LEFT PATELLAR 2+ 2+ ACHILLES 2+ 2+ BURNHAM'S ABSENT ABSENT PLANTAR DOWNGOING DOWNGOING GAIT: Slow steady walk slightly bent over. PERIPHERAL NERVE/MISC: Straight leg raise is negative bilaterally. Zack's test of the hips is negative bilaterally. Upper extremity testing shows 5 over 5 strength bilaterally and 2+ reflexes. Sensory is in tact throughout her upper extremities TEST AND RADIOGRAPHIC REVIEW: The patient's imaging was reviewed in detail with the patient today during the visit. The Lumbar MRI from 11/11/2017 shows compression fracture at L1 with no bone marrow edema indicat ing age indeterminate compression fracture. She has subsequent compression fractures of L2 and L3 with more loss of bone height at L3. The patient has degenerative changes throughout her lumbar spine with mild to moderate foraminal stenosis. There is facet arthritis noted throughout. Lumbar x-rays from 01/08/2018 show spondylolisthesis at L4-5 on flexion extension views. ASSESSMENT: NEUROSURGICAL DIAGNOSES: Encounter Diagnoses Name Primary? Compression fracture of L2 lumbar vertebra, closed, initial encounter ([facility]) Compression fracture of L3 lumbar vertebra, closed, initial encounter ([facility]) Compression fracture of L1 lumbar vertebra with routine healing Yes Spondylolisthesis of lumbar region Osteoporosis with current pathological fracture, unspecified osteoporosis type, initial encounter GENERAL DIAGNOSES: Past Medical History: Diagnosis Date Adverse effect of anesthesia Vomiting with spinal for her appendectomy, memory loss for 5 days after gallbladder, aller gic reaction to pepcid prior to toe surgery 2 para 2 Hypertension Low back pain Muscle strain Strain of muscle, fascia and tendon of lower back, initial encounter Viral meningitis 1976,1982, 1986 Weight loss PLAN: Fátima Paris presented today, and we went over in great detail her neurologic problems. The patient has documented osteoporosis. We will obtain her bone density study. In additi on the patient has significant upper lumbar pain on bad days but this is intermittent and g enerally well controlled with uanc-ceo-ywbuoby medications and rest. We discussed the defor mities of these vertebrae and discussed vertebral augmentation. In addition the patient has low back pain in the lower lumbar and SI joint region which may be related to her spondylol isthesis and degenerative changes. The patient has mildly improving symptoms over time I had a lengthy discussion with the patient about her options for care including surgical a nd non-surgical options. In discussing the surgical options, we discussed in detail the patient's options for Verteb ral augmentation for compression fractures. In addition we discussed the possibility of lum bar region for her spondylolisthesis at L4-5. We answered a number of questions about surge ry and the different available techniques. I would like the patient to follow up with PCP to begin aggressive osteoporosis treatments. . We also discussed all risks and fall prevention. In addition the patient has heart murmu r noted on her exam today which she is not familiar with any previous evaluation. I've aske d her to discuss this also with her primary care provider. We also discussed referral to ysiatry. The patient would like to avoid surgery at this time. She would like to intensify conserva tive therapy as we have discussed. I will provide a referral to physiatry. We discussed wo rking on getting her LSO brace for comfort during her healing. I again reiterated following up with her primary care provider for her osteoporosis treatments as well as further discus cinthya regarding her heart murmur. The patient would like to try additional conservative measures that I have prescribed today . She will contact our office if she would like to return and discuss surgical options. I am recommending that she begin bracing now to help and assist with her current pain sympt oms. The bracing will continue as discussed with the patient. I, Andrew Mao PA-C, personally performed the services described in this documentation , as scribed by SADAF Addison in my presence, and it is both accurate and complete. Andrew Mao PA-C 01/15/18 ELECTRONICALLY SIGNED BY: Andrew Mao PA-C, 01/15/2018 10:26 Portions of this report were transcribed using [employer] voice recognition software. A lthough effort was made in correcting the errors; grammatical and sound alike errors may sti ll be present. documented in this encounter Plan of Treatment [...] | | | | | | [place] [address] | | | | | | [phone] | | | | | | | | +--------+---------+ + + + | 02/01/ | Office | Orthopedic Surgery | David Gomez, | | | 2019 | Visit | | [address] | | | | | | [place] [address] | | | | | | [phone] | | | | | | | | +--------+---------+ + + + + + +--------+ + + | Name | Type | Priori | Associated Diagnoses | Order Schedule | | | | ty | | | + + +--------+ + + | * [facility] | Outpatient | Routin | Compression | Ordered: 01/15/2018 | | Physiatry - AMB | Referral | e | fracture of L2 | | | Referral | | | lumbar vertebra, | | | | | | closed, initial | | | | | | encounter (HCC) | | | | | | Compression fracture | | | | | | of L3 lumbar | | | | | | vertebra, closed, | | | | | | initial encounter | | | | | | (HCC) Compression | | | | | | fracture of L1 | | | | | | lumbar vertebra with | | | | | | routine healing | | | | | | Spondylolisthesis of | | | | | | lumbar region | | | | | | Osteoporosis with | | | | | | current pathological | | | | | | fracture, | | | | | | unspecified | | | | | | osteoporosis type, | | | | | | initial encounter | | + + +--------+ + + documented as of this encounter Procedures + +--------+ + + + | Procedure Name | Priori | Date/Time | Associated Diagnosis | Comments | | | ty | | | | + +--------+ + + + | IMAGING REPORT - | | 12/08/2017 | | Results for this | | EXTERNAL SCAN | | 12:00 AM | | procedure are in the | | | | PDT | | results section. | + +--------+ + + + documented in this encounter Results IMAGING REPORT - EXTERNAL SCAN (12/08/2017 12:00 AM PDT) + + + | Narrative | Performed At | + + + | Ordered by an | | | unspecified provider. | | + + + documented in this encounter Visit Diagnoses + + | Diagnosis | + + | Compression fracture of L1 lumbar vertebra with routine healing - Primary | + + | Compression fracture of L2 lumbar vertebra, closed, initial encounter ([facility]) | + + | Compression fracture of L3 lumbar vertebra, closed, initial encounter (HCC) | + + | Spondylolisthesis of lumbar region Acquired spondylolisthesis | + + | Osteoporosis with current pathological fracture, unspecified osteoporosis type, | | initial encounter | + + documented in this encounter
--- OUTSIDE RECORDS SUMMARY | ~2020-01-31 | XMS | Clinical Summary ---
Demographics + + + | Address | [address] | | | [place] [address] | + + + | Home Phone | | + + + | Preferred Language | Unknown | + + + | Marital Status | Unknown | + + + | Confucianist Affiliation | Unknown | + + + | Race | Unknown | + + + | Ethnic Group | Unknown | + + + Author + + + | Author | [facility] | + + + | Organization | [facility] | + + + | Address | Unknown | + + + | Phone | Unavailable | + + + Care Team Providers + +------+ + | Care Relationship Consultant Name | Role | Phone | + +------+ + PCP | Unavailable | + +------+ + Source Comments [facility] is fully live on both EpicCare Ambulatory and EpicCare InPatient.[facility] Allerg[facility] + + + + + + | Active Allergy | Reactions | Severity | Noted | Comments | | | | | Date | | + + + + + + | Famotidine | Anaphylaxis | High | 01/18/20 | | | | | | 20 | | + + + + + + | Meperidine Hcl | Syncope | | 01/18/20 | | | | | | 20 | | + + + + + + Medications + + + +---------+------+------+-------+ | Medication | Sig | Dispensed | Refills | Star | End | Statu | | | | | | t | Date | s | | | | | | Date | | | + + + +---------+------+------+-------+ | apixaban (ELIQUIS) | Take 2 tablets by | 90 | 0 | 09/3 | 11/0 | Activ | | 5 mg oral tablet | mouth two times | tablet | | 0/20 | 9/20 | e | | | daily for 5 days, | | | 20 | 20 | | | | THEN 1 tablet two | | | | | | | | times daily. | | | | | | + + + +---------+------+------+-------+ | cephALEXin 500 mg | Take 1 capsule by | 28 | 0 | 09/3 | | Activ | | oral capsule | mouth four times | capsule | | 0/20 | | e | | | daily for 7 days. | | | 20 | | | + + + +---------+------+------+-------+ | | Take 1 tablet by | 20 | 0 | 09/3 | | Activ | | oxyCODONE-acetaminop | mouth every four | tablet | | 0/20 | | e | | hen 5-325 mg oral | hours as needed for | | | 20 | | | | tablet | pain. | | | | | | + + + +---------+------+------+-------+ Active Problems Not on file Encounters +--------+ + + + + | Date | Type | Specialty | Care Team | Description | +--------+ + + + + | 01/17/ | Pharmacy | Pharmacy Services | | | | 2020 | Visit | | | | +--------+ + + + + | 01/16/ | Pharmacy | Pharmacy Services | | | | 2020 | Visit | | | | +--------+ + + + + | 01/15/ | Pharmacy | Pharmacy Services | | | | 2020 | Visit | | | | +--------+ + + + + | 01/13/ | Intake | | | | | 2020 | | | | | +--------+ + + + + from Last 3 Months Social History + +-------+ +--------+------+ | Tobacco [...] on file | | + + + Last Filed Vital Signs Not on file Plan of Treatment + + + + + | Health Maintenance | Due Date | Last | Comments | | | | Done | | + + + + + | Pneumococcal | Completed | 02/21/20 | | | vaccination | | 17, | | | | | 08/22/19 | | | | | 16 | | + + + + + | Influenza (Flu) | Completed | 12/08/19 | | | vaccination | | 20, | | | | | 01/27/20 | | | | | 19, | | | | | 02/04/20 | | | | | 18, | | | | | Addition | | | | | al | | | | | history | | | | | exists | | + + + + + Results Not on filefrom Last 3 Months"
--- OUTSIDE RECORDS SUMMARY | ~2020-01-31 | XMS | Encounter Summary ---
Demographics + + + | Address | [address] | | | [place] [address] | + + + | Home Phone | | + + + | Preferred Language | Unknown | + + + | Marital Status | | + + + | Hindu Affiliation | 1077 | + + + | Race | White | + + + | Ethnic Group | Not or | + + + Author + + + | Author | [facility] | | | and [place] | + + + | Organization | [facility] | | | [...] [place] | | | | | [address] | | + + + + + | Todd Paris | ECON | Unknown | | + + + + + Care Team Providers + +------+ + | Care Conflicts Analyst Name | Role | Phone | + +------+ + | Lamont Santoyo MD | PCP | | + +------+ + Encounter Details +--------+ + + + + | Date | Type | Department | Care Team | Description | +--------+ + + + + | 12/31/ | Abstract | [facility] [place] | Andrew Mao | | | 2018 | | NEUROSURGERY [address] | [place] [address] | | | | | [facility] | [address] [place], [place] | | | | | [place], [place] | [id number] | | | | | [address] | | | | | | [phone] | | | +--------+ + + + [...] | | | | | | [place] [address] | | | | | | [phone] | | | | | | | | +--------+---------+ + + + | 02/01/ | Office | Orthopedic Surgery | David Gomez, | | | 2019 | Visit | | [address] | | | | | | [place] [address] | | | | | | [phone] | | | | | | | | +--------+---------+ + + + documented as of this encounter Visit Diagnoses Not on filedocumented in this encounter
--- OUTSIDE RECORDS SUMMARY | ~2020-01-31 | XMS | Encounter Summary ---
Demographics + + + | Address | [address] | | | [place] [address] | + + + | Home Phone | | + + + | Preferred Language | Unknown | + + + | Marital Status | | + + + | Rastafarian Affiliation | 1077 | + + + | Race | White | + + + | Ethnic Group | Not or | + + + Author + + + | Author | [facility] | | | and [place] | + + + | Organization | [facility] | | | and [...] [place] | | | | | [address] | | + + + + + | Todd Paris | ECON | Unknown | | + + + + + Care Team Providers + +------+ + | Care Environmental Sampler Name | Role | Phone | + +------+ + | Lamont Santoyo MD | PCP | | + +------+ + Reason for Referral Evaluate & Treat (Urgent) +--------+ + + + + + | Status | Reason | Specialty | Diagnoses / | Referred By | Referred To | | | | | Procedures | Contact | Contact | +--------+ + + + + + | Closed | Specialty | Surgery / | Diagnoses | Patricia, | Irais, | | | Services | General | Malignant | David Baker MD | MD [address] | | | Required | Surgery | melanoma of | [address] | | | | | right upper | [address] | [address] | | | | | extremity | [place], [place] | [place], [place] | | | | | including | [address] | [address] Phone: | | | | | shoulder | Phone: | [phone] | | | | | ([facility]) | [phone] | Fax: | | | | | | Fax: | [phone] | | | | | | [phone] | | +--------+ + + + + + Reason for Visit + + + | Reason | Comments | + + + | Hand Pain | Right Index finger | + + + Surgery OP (Urgent) + +--------+ + + + + | Status | Reason | Specialty | Diagnoses / | Referred By | Referred To | | | | | Procedures | Contact | Contact | + +--------+ + + + + | Authorized | | Orthopedic | Diagnoses | Abel, | Patricia, | | | | Surgery | Malignant | DO Jefe | David Baker MD | | | | | melanoma of | [address] | [address] | | | | | right upper | [address] | [address] [place], | | | | | limb, | [place], [place] | [place] [address] | | | | | including | [address] | Phone: | | | | | shoulder | Phone: | [phone] | | | | | ([facility]) | [phone] | Fax: | | | | | | Fax: | [phone] | | | | | | [phone] | | + +--------+ + + + + Encounter Details +--------+---------+ + + + | Date | Type | Department | Care Team | Description | +--------+---------+ + + + | 12/04/ | Office | [facility] | David Gomez, | Malignant melanoma | | 2020 | Visit | ORTHO SPORTS | MD [address] | of right upper | | | | [facility] | [place] [address] | extremity including | | | | [address] | [phone] | shoulder (HCC) | | | | [place], [place] | | (Primary Dx); Finger | | | | [address] | | mass, right; Finger | | | | [phone] | | pain, right | +--------+---------+ + + + Social History [...] + + + | Blood Pressure | 122/80 | 12/05/2019 1:46 PM | | | | | PDT | | + + + + + | Pulse | 87 | 12/05/2019 1:46 PM | | | | | PDT | | + + + + + | Temperature | 36.5 C (97.7 F) | 12/05/2019 1:46 PM | | | | | PDT | | + + + + + | Respiratory Rate | - | - | | + + + + + | Oxygen Saturation | 98% | 12/05/2019 1:46 PM | | | | | PDT | | + + + + + | Inhaled Oxygen | - | - | | | Concentration | | | | + + + + + | Weight | 62.8 kg (138 lb 6.4 | 12/05/2019 1:46 PM | | | | oz) | PDT | | + + + + + | Height | 171.5 cm (5' 7.5") | 12/05/2019 1:46 PM | | | | | PDT | | + + + + + | Body Mass Index | 21.36 | 12/05/2019 1:46 PM | | | | | PDT | | + + + + + documented in this encounter Progress Notes David Gomez MD - 12/05/2019 1:50 PM PDTFormatting of this note might be different fro m the original. [facility]: Orthopedic Surgery Patient Name:Fátima Paris AGE: 79 y.o. :1940 CHIEF COMPLAINT: Hand Pain (Right Index finger) Right index finger mass HPI HISTORY OF PRESENT ILLNESS Our patient is a 39-year-old female who is noticed an area over the dorsal radial aspect of the index finger overlying the proximal phalanx as well as PIP joint growing in size for ab out the past 7 years. First biopsy was initially negative in 2012. She had no other areas of clinical concern. No previous surgical consultations. When recently, about a month ago she consulted a roughener who recommended excisional biopsy and the biopsy showed malign ant melanoma. She saw Dr. Leonard and oncology who recommended wide excision as well as sentine l lymph node biopsy and is the reason why she has been referred to my clinic. She has mild pain with pressure relieved with rest the mass appears to be growing in size. There is no r adiation of the pain. The problem is constant and of moderate to severe severity given the fact melanoma. Past medical history is also significant for multiple bouts of meningitis REVIEW OF SYSTEMS, comprehensive review of systems performed and is negative except for not ed above and below Review of Systems Past Medical History: Diagnosis Date Adverse effect [...] sling KNEE SURGERY 1970 Bone spur removed Allergies Allergen Reactions Demerol [Meperidine] Diarrhea and Nausea And Vomiting Pepcid [Famotidine] Other (See Comments) Cardiac arrest Prior to Admission medications Medication Sig Start Date End Date Taking? Authorizing Provider ascorbic acid (VITAMIN C) 500 mg tablet Take 500 mg by mouth Daily. Historical Provider, aspirin 325 mg tablet Take 650 mg by mouth Daily. Historical Provider, calcium polycarbophil (RA FIBER THERAPY) [...] 1,000 mg by mouth Daily. Historical Provider, Llxdlhnnquy-Fnpioaksu-Dmd C-Mn (GLUCOSAMINE CHONDR 1500 COMPLX) CAPS Take 1 capsule by mout h Daily. Historical Provider, ibuprofen (ADVIL, MOTRIN) 200 mg tablet Take 400 mg by mouth every 4 hours as needed. Hi storical ProviderMD Multiple Vitamins-Minerals ( MACULAR HEALTH PO) Take 1 tablet by mouth Daily. Historic al ProviderMD Vit-Fe Fumarate-FA ( COMPLETE) 14-0.4 MG TABS Take 1 tablet by mouth Daily . Historical Provider, Probiotic Product (ADVANCED PROBIOTIC) CAPS Take 1 capsule by mouth Daily. Historical Pr MD jasper Family History Problem Relation Age of Onset Alzheimer's disease Mother TIA Other Breast cancer Neg Hx Social History Socioeconomic History Marital [...] file Gets together: Not on file Attends [employer] service: Not on file Active member of [...] Not on file PHYSICAL EXAM Vital Signs: BP 122/80 | Pulse 87 | Temp 36.5 C (97.7 F) | Ht 1.715 m (5' 7.5") | Wt 62.8 kg (13 8 lb 6.4 oz) | SpO2 98% | BMI 21.36 kg/m Physical Exam Well developed well nourished patient No acute distress Alert and oriented times three Head and neck are normal Oropharynx is clear Gaze is conjugate Breathing is unlabored Heart is regular rate and rhythm Ortho Exam RUE Skin is clean, dry and intact Brisk cap refill 2+ pulses No deficits noted Motor and sensation are intact Abnormal appearing mass noted over the dorsal radial aspect of the proximal phalanx of the index finger. No palpable lymphadenopathy noted in the axilla. No range of motion deficits . No neurovascular deficits., no lymphadenopathy Normal sweat patterns No hyperreflexia Negative rogers's maneuver Compartments are soft and compressible Biopsy proven melanoma per pathology PROBLEM LIST Encounter Diagnoses Name Primary? 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 Avoidance of adverse surgical complications an d optimization of treatment/therapy is the primary goal. Complex analysis and decision myah baker was involved in today's visit and required extended time to fully and correctly evaluate t his patient's unique problems and design a treatment strategy that is best for their specifi c health problems and circumstances. I have spoken directly with Dr. Leonard as well as Dr. Braxton in general surgery. We will arr susannah surgical excision which I will perform and at the same time we will perform a sentinel lymph node biopsy. We will coordinate scheduling. All of this was discussed with the patie nt as well as her in detail Conservative and operative options reviewed. The patient would like to move forward with cooley thomassara understanding all options available. Anesthesia risks and benefits have been reviewed as well. Risks and benefits of right index finger mass excision surgery have been reviewed in detail . Healing rates have been reviewed in detail as well as what to expect postoperatively. We w ill move forward with surgery. Risks include but are not limited to bleeding, infection, need for reoperation, damage to nerves/blood vessels/tendons, chronic deformity and pain. All questions have been answered. Rehabilitation protocols reviewed. Success rates and recurrence rates have been discussed. N o guarantees have been given. @[email or web address]@ Primary Care Physician: MD David Garcia MD This document has been prepared with [employer] voice recognition system. The possibility of "s ound alike" recovery unit operator errors, and additions, or deletions may occur. If there is any que stion with respect to clarity of the message being conveyed, please contact me directly for clarification. documented in this en counter Plan of Treatment +--------+---------+ + + + | Date | Type | Specialty | Care Team | Description | +--------+---------+ + + + | 01/31/ | Office | General Surgery | Pepe Stone, | | | 2019 | Visit | | [address] | | | | | | [address] [place], | | | | | | [place] [address] | | | | | | [phone] | | | | | | | | +--------+---------+ + + + | 02/01/ | Office | Orthopedic Surgery | David Gomez, | | | 2019 | Visit | | [address] | | | | | | [place] [address] | | | | | | [phone] | | | | | | | | +--------+---------+ + + + + + +--------+ + + | Name | Type | Priori | Associated Diagnoses | Order Schedule | | | | ty | | | + + +--------+ + + | Ambulatory Referral | Outpatient | STAT | Malignant melanoma | Ordered: 12/05/2019 | | to [facility] | Referral | | of right upper | | | Surgery | | | extremity including | | | | | | shoulder (HCC) | | + + +--------+ + + documented as of this encounter Visit Diagnoses + + | Diagnosis | + + | 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
--- OUTSIDE RECORDS SUMMARY | ~2020-01-31 | XMS | Encounter Summary ---
Demographics + + + | Address | [address] | | | [place] [address] | + + + | Home Phone | | + + + | Preferred Language | Unknown | + + + | Marital Status | | + + + | Pentecostalism Affiliation | 1077 | + + + [...] [place] | | | | | [address] | | + + + + + | Todd Paris | ECON | Unknown | | + + + + + Care Team Providers + +------+ + | Care Rn Otolaryngology Name | Role | Phone | + +------+ + | Lamont Santoyo MD | PCP | | + +------+ + Reason for Visit + + + | Reason | Comments | + + + | Screening For | | | Communicable Disease | | + + + Encounter Details +--------+ + + + + | Date | Type | Department | Care Team | Description | +--------+ + + + + | 12/11/ | Clinical | [facility] | | Exposure to | | 2019 | Support | [facility] | | SARS-associated | | | | [address] | | coronavirus (Primary | | | | [address] [place], [place] | | Dx) | | | | [address] | | | | | | [phone] | | | +--------+ + + + [...] + + | Pulse | 87 | 12/12/2019 10:27 AM | | | | | PDT | | + + + + + | Temperature | 37.2 C (98.9 F) | 12/12/2019 10:27 AM | | | | | PDT | | + + + + + | Respiratory Rate | - | - | | + + + + + | Oxygen Saturation | 96% | 12/12/2019 10:27 AM | | | | | PDT [...] + documented in this encounter Progress Notes Kiet Castellanos Medical Assistant - 12/12/2019 10:45 AM PDTPatient presents to the clinic today for a COVID-19 clearance test for surgery. Patient collected their own specimen while being observed and instructed by clinic staff member with both verbal and written instructio ns. Patient was also given a ID NOW Test Fact Sheet. Patient was given results in person. Re sults given in person are given with a result specific discharge sheet. Negative Patients: Advised to self-quarantine until surgery. Postive Patients: Advised to contact their Surgeon's office for further instructions.Electr onically signed by Jayce Adame at 12/12/2019 10:36 AM PDTdocumented in this encounter Plan of Treatment +--------+---------+ + + + | Date | Type | Specialty | Care Team | Description | +--------+---------+ + + + | 01/31/ | Office | General Surgery | Pepe Stone, | | 2019 | Visit | | [address] | | | | | | [address] [place], | | | | | | [place] [address] | | | | | | [phone] | | | | | | | | +--------+---------+ + + + | 02/01/ | Office | Orthopedic Surgery | David Gomez, | | | 2019 | Visit | | [address] | | | | | | [place] [address] | | | | | | [phone] | | | | | | | | +--------+---------+ + + + documented as of this encounter Procedures + +--------+ + + + | Procedure Name | Priori | Date/Time | Associated Diagnosis | Comments | | | ty | | | | + +--------+ + + + | POC CORONAVIRUS | Routin | 12/12/2019 | Exposure to | Results for this | | (COVID-19) NAAT | e | 10:29 AM | SARS-associated | procedure are in the | | | | PDT | coronavirus | results section. | + +--------+ + + + documented in this encounter Results POC Coronavirus (COVID-19) NAAT (12/12/2019 10:29 AM PDT) + + + + + + | Component | Value | Ref Range | Performed | Pathologist | | | | | At | Signature | + + + + + + | POC SOURCE | Nares | | | | + + + + + + | SARS | Negative | Negative | | | | coronavirus | | | | | | 2 RNA | | | | | | (POC) | | | | | + + + + + + | Internal QC | Acceptable | Acceptable | | | + + + + + + + + | Specimen | + + | Tissue | + + + + + | Narrative | Performed At | + + + | SARS-CoV-2, RNA (COVID-19) EUA Negative results, using the | | | [employer] ID NOW Platform, should be treated as presumptive and, if | | | inconsistent with clinical signs and symptoms or necessary for patient | | | management, should be tested with an alternative molecular assay. | | | Please contact the laboratory for assistance as needed. Negative | | | results do not preclude COVID-19 infection and should not be used as | | | the sole basis for patient management decisions. Negative results | | | should be considered in the context of a patient's recent exposures, | | | history, presence of clinical signs and symptoms consistent with | | | COVID-19. This assay has been cleared for use under an FDA | | | Emergency Use Authorization. This test is used for clinical purposes. | | | It should not be regarded as investigational or for research. This | | | laboratory is certified under the Clinical Laboratory Improvement | | | Amendments (CLIA) as qualified to perform high complexity testing. | | | This test has been validated in accordance with the FDA's Guidance | | | Document "Policy for Diagnostics Testing in Laboratories Certified to | | | Perform High Complexity Testing under CLIA prior to Emergency Use | | | Authorization for Coronavirus Disease-2019 during the Public Health | | | Emergency" issued on June 18, 2019. FDA independent review of | | | this validation is pending. This test is only authorized for the | | | duration of time the declaration that circumstances exist justifying | | | the authorization of the emergency use of in vitro diagnostic tests | | | for detection of SARS-CoV-2 virus and/or diagnosis of COVID-19 | | | infection under section 564(b)(1) of the Act, 21 U.S.C. | | | 360bbb-3(b)(1), unless the authorization is terminated or revoked | | | sooner. | | + + + documented in this encounter Visit Diagnoses + + | Diagnosis | + + | Exposure to SARS-associated coronavirus - Primary | + + documented in this encounter
--- OUTSIDE RECORDS SUMMARY | ~2020-01-31 | XMS | Encounter Summary ---
Demographics + + + | Address | [address] | | | [place] [address] | + + + | Home Phone | | + + + | Preferred Language | Unknown | + + + | Marital Status | | + + + | Rastafarian Affiliation | 1077 | + + + | Race | White | + + + | Ethnic Group | Not or | + + + Author + + + | Author | [facility] | | | and [place] | + + + | Organization | [facility] | | [...] [place] | | | | | [address] | | + + + + + | Todd Paris | ECON | Unknown | | + + + + + Care Team Providers + +------+ + | Care House Wrecker Name | Role | Phone | + +------+ + | Lamont Santoyo MD | PCP | | + +------+ + Reason for Visit + + + | Reason | Comments | + + + | Melanoma | Patient is here today for a new pt consult referred by Dr Gomez | | | for melanoma of Rt upper extremity. pt states the melanoma is | | | located on her Rt index finger. pt states she had a bx in 2012 | | | which was negative. pt states over the yrs the lesion has grown | | | in size without pain. pt state she is not scheduled for sx with | | | Dr Gomez to remove the RT index finger. | + + + Evaluate & Treat (Urgent) +--------+ + + + + + | Status | Reason | Specialty | Diagnoses / | Referred By | Referred To | | | | | Procedures | Contact | Contact | +--------+ + + + + + | Closed | Specialty | Surgery / | Diagnoses | Patricia, | Danych, | | | Services | General | Malignant | David Elmore MD | MD [address] | | | Required | Surgery | melanoma of | [address] | | | | | right upper | [address] | [address] | | | | | extremity | [place], [place] | [place], [place] | | | | | including | [address] | [address] Phone: | | | | | shoulder | Phone: | [phone] | | | | | ([facility]) | [phone] | Fax: | | | | | | Fax: | [phone] | | | | | | [phone] | | +--------+ + + + + + Encounter Details +--------+---------+ + + + | Date | Type | Department | Care Team | Description | +--------+---------+ + + + | 12/08/ | Office | [facility] | Pepe Stone, | Malignant melanoma | | 2019 | Visit | GENERAL SURGERY [address] | [address] | of finger of right | | | | [address] | [address] [place], | jason (HCC) (Primary | | | | [place], [place] | [place] [address] | Dx) | | | | [address] | [phone] | | | | | [phone] | | | +--------+---------+ + + + [...] + + + | Blood Pressure | 168/89 | 12/09/2019 10:55 AM | | | | | PDT | | + + + + + | Pulse | 89 | 12/09/2019 10:55 AM | | | | | PDT | | + + + + + | Temperature | 36.4 C (97.6 F) | 12/09/2019 10:55 AM | | | | | PDT | | + + + + + | Respiratory Rate | - | - | | + + + + + | Oxygen Saturation | 99% | 12/09/2019 10:55 AM | | | | | PDT | | + + + + + | Inhaled Oxygen | - | - | | | Concentration | | | | + + + + + | Weight | 60.9 kg (134 lb 3.2 | 12/09/2019 10:55 AM | | | | oz) | PDT | | + + + + + | Height | - | - | | + + + + + | Body Mass Index | 20.71 | 12/05/2019 1:46 PM | | | | | PDT | | + + + + + documented in this encounter H&P Notes Pepe Stone MD - 12/09/2019 11:00 AM PDTFormatting of this note might be different fr om the original. Fátima Paris is an 79 y.o. female. HPI This [...] physician was very concerned about it a punc h biopsy was done after referral to [...] capsule Take 1,000 mg by mouth Daily. Phbnynubjij-Uuuicsqry-Vzt C-Mn (GLUCOSAMINE CHONDR 1500 COMPLX) CAPS Take [...] file Gets together: Not on file Attends yazdanism service: Not on file Active member of [...] setting this up. Pepe Stone MD 12/09/2019 documented in this encounter Plan of Treatment +--------+---------+ + + + | Date | Type | Specialty | Care Team | Description | +--------+---------+ + + + | 01/31/ | Office | General Surgery | Pepe Stone, | | 2019 | Visit | | [address] | | | | | | [address] [place], | | | | | | [place] [address] | | | | | | [phone] | | | | | | | | +--------+---------+ + + + | 02/01/ | Office | Orthopedic Surgery | David Gomez, | | | 2019 | Visit | | [address] | | | | | | [place] [address] | | | | | | [phone] | | | | | | | | +--------+---------+ + + + documented as of this encounter Visit Diagnoses + + | Diagnosis | + + | 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
--- OUTSIDE RECORDS SUMMARY | ~2020-01-31 | XMS | Encounter Summary ---
Demographics + + + | Address | [address] | | | [place] [address] | + + + | Home Phone | | + + + | Preferred Language | Unknown | + + + | Marital Status | | + + + | Protestant Affiliation | 1077 | + + + | Race | White | + + + | Ethnic Group | Not or | + + + Author + + + | Author | [facility] | | | and [place] | + + + | Organization | [facility] | | | and [...] [place] | | | | | [phone] | | + + + + + | Todd Paris | ECON | Unknown | | + + + + + Care Team Providers + +------+ + | Care Pediatric Ophthalmologist Name | Role | Phone | + +------+ + | Lamont Santoyo MD | PCP | | + +------+ + Encounter Details +--------+ + + + + | Date | Type | Department | Care Team | Description | +--------+ + + + + | 12/11/ | Preadmit | [facility] | Pepe Stone, | Preop testing | | 2020 | Visit | CENTER [facility] | [address] | (Primary Dx) | | | | CLINIC [address] | [address] | | | | | [address] [place], [place] | [place] [address] | | | | | [address] | [phone] | | | | | [phone] | | | +--------+ + + + [...] + + + | Blood Pressure | 177/64 | 12/12/2019 1:01 PM | | | | | PDT | | + + + + + | Pulse | 84 | 12/12/2019 1:01 PM | | | | | PDT | | + + + + + | Temperature | - | - | | + + + + + | Respiratory Rate | - | - | | + + + + + | Oxygen Saturation | 99% | 12/12/2019 1:01 PM | | | | | PDT | | + + + + + | Inhaled Oxygen | - | - | | | Concentration | | | | + + + + + | Weight | 63 kg (138 lb 14.2 | 12/12/2019 1:01 PM | | | | oz) | PDT | | + + + + + | Height | 171.5 cm (5' 7.5") | 12/12/2019 1:01 PM | | | | | PDT | | + + + + + | Body Mass Index | 21.43 | 12/12/2019 1:01 PM | | | | | PDT | | + + + + + documented in this encounter Patient Instructions Instructions Eleni Live RN - 12/12/2019Formatting of this note might be different fr om the original. Outpatient Medications Marked as Taking for the 12/12/19 encounter (Preadmit Visit) with [facility] 2 Medication Sig Instructions bismuth subsalicylate (PEPTO-BISMOL) 262 mg/15 mL suspension Take 15 mLs by mouth every 6 hours as needed for Indigestion. DO NOT TAKE day of procedure loperamide (IMODIUM A-D) 2 MG tablet Take 2 mg by mouth 4 times daily as needed for April rrhea. DO NOT TAKE day of procedure After Your Surgery You ve just had surgery. During surgery, you received medication called anesthesia to andres p you comfortable and pain-free. After surgery, you may experience some pain or nausea. This is common. Going Home Have an adult family member or friend drive you home. For the first 24 hours after your mora elizabteh: ? Do not drive or use heavy equipment. ? Do not make important decisions or sign legal documents. ? Avoid alcohol. ? Have someone stay with you, if needed. He or she can watch for problems and help keep you safe. Be sure to keep all follow-up appointments with your doctor. And rest after your procedure for as long as your doctor tells you to. Coping with Pain If you have pain after surgery, pain medication will help you feel better. Take your medica tion as directed, before pain becomes severe. Consider other ways to control pain, such as with heat, ice, and relaxation. To get the best relief possible, remember these points: ? Pain medications can upset your stomach. Taking them with a little food may help. ? Most pain relievers taken by mouth need at least 20 to 30 minutes to take effect. ? Taking medication on a schedule can help you remember to take it. Try to time your medica tion so that you can take it before beginning an activity, such as dressing, walking, or sit ting down for dinner. ? Don t drink alcohol while taking pain medication. ? Don t drive or operate machinery while taking pain medications as they can slow your re flexes. If your health care provider tells you to take acetaminophen or ibuprofen to help relieve y our pain, ask him or her how much you are supposed to take each day. Constipation ? Constipation is a common side effect of pain medications and anesthetics. Contact your do ctor before taking any medications like laxatives or stool softeners to help relieve constip ation, unless they have been prescribed for you. ? Drinking lots of non-alcoholic fluids and eating foods like fruits and vegetables that ar e high in fiber can also help. Managing Nausea Some people have an upset stomach after surgery. This is often due to anesthesia, pain, liv n medications, or the stress of surgery. If you were on a special diet before surgery, ask your doctor if you should follow it during recovery. These tips may help: ? Don t push yourself to eat. Your body will tell you when to eat and how much. ? Start off with clear liquids and soup. They are easier to digest. Slowly move to solid f oods. Don t eat fatty, rich, or spicy foods at first. ? Don t force yourself to have three large meals a day. Instead, eat smaller amounts more often. Blood Clot Prevention Deep vein thrombosis (DVT) is a clot that forms in your deep veins usually in the leg o r thigh. A pulmonary embolism (PE) occurs when a clot in the bloodstream travels through th e heart and into the lungs. If the clot becomes stuck in a blood vessel in the lungs, blood flow can be blocked which causes life-threatening heart and lung problems. The following are prevention tips: ? Elevate your legs whenever they feel swollen or heavy ? Maintain a healthy weight ? Quit smoking ? Avoid sitting, standing, or lying down for long periods without moving your legs and feet . o When traveling by car, make frequent stops to get out and move around. o On long airplane, train, or bus rides, get up and move around when possible. o If you can t get up, wiggle your toes and tighten your calves to keep your blood moving . If you have any of these symptoms of DVT or PE, call your doctor: ? Swelling, pain, or both, often in one limb ? Redness or warmth, often in one limb ? Sudden, continuous pain deep in your muscle ? Worsening ache when you are active or when you stand still for a long time ? Rapid, pounding, or unusual heartbeat ? Sweating more than usual. ? Chest pain, trouble breathing, coughing up blood, skin turning blue, or fainting Call 911. documented in this encounter Miscellaneous Notes Preadmit Clinic Note - Eleni Live RN - 12/12/2019 12:30 PM PDTAHA guidelines for non cardiac non emergent surgery followed. METS greater than 4. Patient denies CP, SOB or add itional cardiac symptoms. documented in this encounter Plan of Treatment +--------+---------+ + + + | Date | Type | Specialty | Care Team | Description | +--------+---------+ + + + | 01/31/ | Office | General Surgery | Pepe Stone, | | 2019 | Visit | | [address] | | | | | | [address], | | | | | | [place] [address] | | | | | | [phone] | | | | | | | | +--------+---------+ + + + | 02/01/ | Office | Orthopedic Surgery | David Gomez, | | 2019 | Visit | | [address] | | | | | | [place] [address] | | | | | | [phone] | | | | | | | | +--------+---------+ + + + documented as of this encounter Results ECG 12 lead (12/12/2019 12:45 PM PDT) + + + + + + | Component | Value | Ref Range | Performed | Pathologist | | | | | At | Signature | + + + + + + | VENTRICULAR | 83 | BPM | [facility] | | | RATE EKG | | | | | + + + + + + | ATRIAL RATE | 83 | BPM | [facility] | | + + + + + + | P-R | 156 | ms | [facility] | | | INTERVAL | | | | | + + + + + + | QRS | 76 | ms | [facility] | | | DURATION | | | | | + + + + + + | Q-T | 368 | ms | [facility] | | | INTERVAL | | | | | + + + + + + | Q-T | 432 | ms | [facility] | | | INTERVAL | | | | | | (CORRECTED) | | | | | + + + + + + | P WAVE AXIS | 72 | degrees | [facility] | | + + + + + + | QRS AXIS | 31 | degrees | [facility] | | + + + + + + | T AXIS | 60 | degrees | [facility] | | + + + + + + | INTERPRETAT | Sinus rhythm with | | [facility] | | | ION TEXT | Premature | | | | | | supraventricular | | | | | | complexesNonspecific ST | | | | | | abnormalityAbnormal | | | | | | ECGNo previous ECGs | | | | | | availableConfirmed by | | | | | | TAWANA AKHTAR MD ([id number]) | | | | | | on 12/12/2019 5:22:46 PM | | | | + + + [...] + | Diagnosis | + + | Preop testing - Primary Preoperative examination, unspecified | + + documented in this encounter
--- OUTSIDE RECORDS SUMMARY | ~2020-01-31 | XMS | Encounter Summary ---
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 | | | | | | | (HCC) | | | | | | | Procedures | | | | | | | DISSECTION | | | | | | | LYMPH NODE | | | +--------+--------+ + + + + Encounter Details +--------+ + + + + | Date | Type | Department | Care Team | Description | +--------+ + + + + | 01/09/ | Anesthesia | [facility] | Belia Busby, | | | 2020 | Event | MEDICAL CENTER | [facility] [address] | | | | | [address] | [place] [address] | | | | | [address] | [phone] | | | | | [place], [place] | | | | | | [address] | | | | | | [phone] | | | +--------+ + + + + Anesthesia Record + + + + + | Procedure Name | Responsible | Anesthesia Start | Anesthesia Stop Time | | | Anesthesiologist | Time | | + + + + + | DISSECTION LYMPH | Belia Busby CRNA | 01/10/20 1238 | 01/10/20 1336 | | NODE - AXILLARY | | | | | (Right Arm Upper) | | | | + + + + + +----+---+ + + | Da | T | Event | Comment | | te | i | | | | | m | | | | | e | | | +----+---+ + + | 09 | 1 | | | | /2 | 2 | | | | 2/ | 2 | | | | 20 | 9 | | | | 20 | | | | +----+---+ + + | | 1 | An Start | Reassessment prior to anesthesia induction/procedure. | | | 2 | | | | | 3 | | | | | 8 | | | +----+---+ + + | | 1 | Antibiotic | | | | 2 | Given | | | | 3 | | | | | 8 | | | +----+---+ + + | | 1 | An | | | | 2 | Induction | | | | 5 | | | | | 1 | | | +----+---+ + + | | 1 | An | | | | 2 | Intubation | | | | 5 | | | | | 3 | | | +----+---+ + + | | 1 | Anesthesia | | | | 2 | Ready | | | | 5 | | | | | 8 | | | +----+---+ + + | | 1 | Pre-Procedu | | | | 3 | ral Timeout | | | | 0 | Completed | | | | 3 | | | +----+---+ + + | | 1 | First | | | | 3 | Inc/Proc St | | | | 0 | | | | | 3 | | | +----+---+ + + | | 1 | Extubation/ | | | | 3 | Airway LDA | | | | 3 | Removal | | | | 2 | | | +----+---+ + + | | 1 | an stop | | | | 3 | data | | | | 3 | | | | | 3 | | | +----+---+ + + | | 1 | An Stop | Patient handed off to recovery nurse. | | | 3 | | | | | 6 | | | +----+---+ + + +------+ | Meds | +------+ + +---------+ | Name | Total | + +---------+ | fentaNYL | 100 mcg | + +---------+ | lidocaine 2% | 60 mg | + +---------+ | propofol | 200 mg | + +---------+ | ondansetron | 4 mg | + +---------+ | dexamethasone | 8 mg | + +---------+ | phenylephrine | 100 mcg | + +---------+ | ceFAZolin in dextrose (ANCEF) | 2 g | | IVPB 2 g | | + +---------+ | balanced electrolytes in water | 400 mL | | (PLASMALYTE-148/NORMOSOL-R) | | | infusion | | + +---------+ + + | Name | + + | N2O Flow Rate (L/Min) | + + | O2 Flow Rate (L/Min) | + + | Insp O2 | + + | Exp N2O | + + | Exp SEV | + + | Air Flow Rate (L/Min) | + + + + | No blood administrations on file. | + + +--------+ + + + | Type | Details | Placement | Removal | +--------+ + + + | Wound | 12/13/19; 1731; Incision; Right; | 12/13/191731 by | | | | arm | Mj Dorsey RN | | +--------+ + + + | Wound | 12/13/19; 1736; Incision; Right; | 12/13/191736 by | | | | axilla | Mj Dorsey RN | | +--------+ + + + | Drain/ | 01/10/20; #1; Right; lateral; | 01/10/20 0000 by | | | Device | axilla; collapsible closed device | Devora Neff | | | Site | | NIK Godfrey | | +--------+ + + + | Periph | 01/10/20; 1200; Left; Distal; | 01/10/20 1200 by | 01/10/20 1354 by | | eral | Hand; vchl-gzk-tfylab catheter | Lexi Cohn, | Nirali Adams RN | | IV | system; 20 gauge; site | RN | | | | symptomatic; infiltrated; | | | | | 01/10/20; 1354 | | | +--------+ + + + | Periph | 01/10/20; 1247; Left; | 01/10/20 1247 by | 01/10/20 1620 by | | eral | Antecubital; deht-mkz-dlyosv | Belia Busby CRNA | Wendy Guardado RN | | IV | catheter system; 20 gauge; | | | | | tolerated well; sterile tape | | | | | strips, secured with; | | | | | catheter/device intact; short | | | | | term use; 01/10/20; 1620 | | | +--------+ + + + | Airway | Placement Date: 01/10/20; | 01/10/20 1253 by | 01/10/20 1333 by | | | Placement Time: 1253 (created via | Belia Busby CRNA | Belia Busby CRNA | | | procedure documentation); | | | | | Attempts: 1; Airway Type: | | | | | laryngeal mask; Size: 4; Trauma: | | | | | none; Placement Check: exhaled | | | | | CO2 detection device; Removal | | | | | Date: 01/10/20; Removal Time: | | | | | 1333 | | | +--------+ + + + documented in this encounter Social History + +-------+ +--------+ + | [...] + + documented as of this encounter OR Notes Anesthesia Postprocedure Evaluation - Belia Busby CRNA - 01/10/2020 1:38 PM PDTFormatti ng of this note might be different from the original. ANESTHESIA POSTANESTHESIA EVALUATION Fátima Paris 79 y.o. female 1940 [id number] Procedure(s) DISSECTION LYMPH NODE - AXILLARY (Right Arm Upper) Cooperates? Yes Mental Status Performs simple tasks. Respiratory Satisfactory - Airway patent (self maintained). Cardiovascular Satisfactory - Blood pressure and heart rate acceptable Temperature Satisfactory Pain Satisfactory N/V Control Satisfactory Hydration Satisfactory - No signs of dehydration Adverse Events ADVERSE EVENTS: No adverse events Vitals Value Taken Time Temp 36.4 C (97.5 F) 01/10/20 1336 Pulse 96 01/10/20 1338 Resp 27 01/10/20 1338 BP 194/88 01/10/20 1339 Arterial Line BP Arterial Line BP 2 SpO2 100 % 01/10/20 1338 Vitals shown include unvalidated device data. Electronically signed by Belia Busby CRNA 01/10/2020 1:40 PM PDT [facility] nesthesia Procedure Notes - Belia Busby CRNA - 01/10/2020 1:01 PM PDTAssoc iated Order(s): AirwayAnesthesia Airway Placement 01/10/2020 12:53 PM Preprocedure check: patient identified, oxygen, airway assessed, suction, airway equipment checked and patient reassessment prior to induction Rapid Sequence Induction: no Attempts: 1 Airway type: laryngeal mask Size: 4 Route, reference point: center of mouth Tube secured with: adhesive tape Trauma: none Tube placement verification: carbon dioxide detection Performing provider: Belia Busby CRNA Authorizing provider: Belia Busby CRNA Please see intraoperative grid for any additional medication documentation. nesthesia Preprocedu re Evaluation - Belia Busby CRNA - 01/09/2020 8:56 AM PDTFormatting of this note might b e different from the original. ANESTHESIA PREANESTHESIA EVALUATION Fátima Paris 79 y.o. female 1940 [id number] Procedure(s): DISSECTION LYMPH NODE - AXILLARY (Right Arm Upper) Medical,anesthesia, drug, allergy histories reviewed, NPO status verified. ECG reviewed. Labs reviewed. (-) perioperative beta-matheus/statin not given/taken, reason : not applicable/Not taking Beta-Matheus. Review of Systems / Med History Anesthesia History No anesthesia complications except where noted below. Family Anesthesia History Family Anesthesia Negative except where noted below. Cardiovascular Exercise tolerance >4 METS (+) history of heart murmur . Pulmonary (+) tobacco use.(+) ex-smoker: 1995. Gastrointestinal/Hepatic (+) acid reflux. Renal Negative except where noted below. Endocrine Negative except where noted below. Hematology/Other Negative except where noted below. Cancer melanoma. Obstetrics Negative except where noted below. Pediatric History Negative except where noted below. Neuromuscular (+) back pain. Psychology Negative except where noted below. Physical Exam Airway MP II, TM >3 FB, Mouth opening >2 FB. Neck: full ROM, extends >30 degrees. Jaw protrus ion normal. Facial hair present: No Dental Several molar crowns (+) implants(s)/bridges(s)/caps(s). CV Rhythm regular. Rate normal. (+) murmur. Pulm Clear to auscultation bilaterally. Neuro grossly normal. Anesthesia Plan ASA: 2 Type: General. Induction: Intravenous. Potential problems: None anticipated. Monitors: Standard ASA monitors. Consent statement: Anesthetic plan, alternatives, risks and benefits discussed with patient. , discussed risks to teeth, drug reaction, heart problems, nausea, pain, perioperative CV events, respir atory events, sore throat, stroke Blood transfusion concerns: None. Consenting person understands and agrees to proceed. Electronically Signed by: Belia Busby CRNA ESi date/time: 01/10/2020 12:25 PM PDT documented in this en counter Miscellaneous Notes Anesthesia Post-op Handoff - Belia Busby CRNA - 01/10/2020 1:38 PM PDTFormatting of thi s note might be different from the original. ANESTHESIA HANDOFF NOTE Fátima Paris 79 y.o. female 1940 [id number] DISSECTION LYMPH NODE - AXILLARY (Right Arm Upper) HANDOFF NOTE Handoff Protocol Used: post-procedure handoff checklist completed The following were completed during the transfer of care: 1. Identification of patient 2. Identification of responsible practitioner (primary service) 3. Discussion of pertinent medical history 4. Discussion of the surgical/procedure course (procedure, reason for surgery, procedure pe rformed) 5. Intraoperative anesthetic management and issues/concerns 6. Expectations/plans for the early post-procedure period 7. Opportunity for questions and acknowledgement of understanding of report from receiving team Patient Location: Phase I Condition: lethargic Airway/O2: face mask with O2 The significant anesthesia concerns and VS in Epic were reviewed with the receiving team. Belia Busby CRNA 01/10/2020 1:38 PM PDT [facility] documented in this encounter Plan of Treatment +--------+---------+ + + + | Date | Type | Specialty | Care Team | Description | +--------+---------+ + + + | 01/31/ | Office | General Surgery | Pepe Stone, | | 2019 | Visit | | MD [address] | | | | | | [address] | | | | | | [place] [address] | | | | | | [phone] | | | | | | | | +--------+---------+ + + + | 02/01/ | Office | Orthopedic Surgery | David Gomez, | | 2019 | Visit | | MD [address] | | | | | | [place] [address] | | | | | | [phone] | | | | | | | | +--------+---------+ + + + documented as of this encounter Procedures + +--------+ + + + | Procedure Name | Priori | Date/Time | Associated Diagnosis | Comments | | | ty | | | | + +--------+ + + + | ANE AIRWAY NOTE | Routin | 01/10/2020 | | Results for this | | | e | 1:01 PM | | procedure are in the | | | | PDT | | results section. | + +--------+ + + + documented in this encounter Results Airway (01/10/2020 1:01 PM PDT) + + + | Narrative | Performed At | + + + | Belia Busby CRNA 01/10/2020 1:02 PM Anesthesia Airway | | | Placement 01/10/2020 12:53 PM Preprocedure check: patient | | | identified, oxygen, airway assessed, suction, airway equipment | | | checked and patient reassessment prior to induction Rapid Sequence | | | Induction: no Attempts: 1 Airway type: laryngeal mask Size: 4 | | | Route, reference point: center of mouth Tube secured with: adhesive | | | tape Trauma: none Tube placement verification: carbon dioxide | | | detection Performing provider: Belia Busby CRNA Authorizing | | | provider: Belia Busby CRNA Please see intraoperative grid | | | for any additional medication documentation. | | + + + documented in this encounter Visit Diagnoses Not on filedocumented in this encounter Administered Medications + +---------+ +--------+-------+------+ | Medication Order | MAR | Action | Dose | Rate | Site | | | Action | Date | | | | + +---------+ +--------+-------+------+ | balanced electrolytes in water | New Bag | 01/10/20 | 30 mLs | 100 | | | (PLASMALYTE-148/NORMOSOL-R) | | 20 12:14 | | mL/hr | | | infusion at 100 mL/hr, | | PM PDT | | | | | Intravenous, CONTINUOUS, Starting | | | | | | | 01/10/20 at 1145, Pre-op | | | | | | + +---------+ +--------+-------+------+ +---------+ +---+---+---+ | New Bag | 01/10/20 | | | | | | 20 12:00 | | | | | | PM PDT | | | | +---------+ +---+---+---+ +---+---+ | | | +---+---+ + +-------+ +-----+---+---+ | ceFAZolin in dextrose (ANCEF) | Given | 01/10/20 | 2 g | | | | IVPB 2 g 2 g, Intravenous, | | 20 12:38 | | | | | Administer over 30 Minutes, Prior | | PM PDT | | | | | to Incision, Starting Tue | | | | | | | 01/10/20 at 1127, For 1 dose, Keep | | | | | | | in refrigerator., Pre-op, | | | | | | | Indications: Surgical Prophylaxis | | | | | | + +-------+ +-----+---+---+ +---+---+ | | | +---+---+ + +-------+ +------+---+---+ | dexamethasone (DECADRON) 4 | Given | 01/10/20 | 8 mg | | | | mg/mL injection Intravenous, | | 20 12:58 | | | | | PRN, Starting Thu01/10/20 at | | PM PDT | | | | | 1258, Anesthesia Intra-op | | | | | | + +-------+ +------+---+---+ +---+---+ | | | +---+---+ + +-------+ +--------+---+---+ | fentaNYL (PF) injection | Given | 01/10/20 | 25 mcg | | | | Intravenous, PRN, Starting Tue | | 20 1:30 | | | | | 01/10/20 at 1253, Anesthesia | | PM PDT | | | | | Intra-op | | | | | | + +-------+ +--------+---+---+ +-------+ +--------+---+---+ | Given | 01/10/20 | 25 mcg | | | | | 20 1:10 | | | | | | PM PDT | | | | +-------+ +--------+---+---+ | Given | 01/10/20 | 50 mcg | | | | | 20 12:53 | | | | | | PM PDT | | | | +-------+ +--------+---+---+ +---+---+ | | | +---+---+ + +-------+ +-------+---+---+ | lidocaine (PF) 2% injection | Given | 01/10/20 | 60 mg | | | | Intravenous, PRN, Starting Tue | | 20 12:51 | | | | | 01/10/20 at 1251, Anesthesia | | PM PDT | | | | | Intra-op | | | | | | + +-------+ +-------+---+---+ +---+---+ | | | +---+---+ + +-------+ +------+---+---+ | ondansetron (ZOFRAN) injection | Given | 01/10/20 | 4 mg | | | | Intravenous, PRN, Starting Tue | | 20 12:58 | | | | | 01/10/20 at 1258, Anesthesia | | PM PDT | | | | | Intra-op | | | | | | + +-------+ +------+---+---+ +---+---+ | | | +---+---+ + +-------+ +---------+---+---+ | phenylephrine (AMIRA-SYNEPHRINE, | Given | 01/10/20 | 100 mcg | | | | VAZCULEP) 10 mg per mL injection | | 20 1:22 | | | | | Intravenous, PRN, Starting Tue | | PM PDT | | | | | 01/10/20 at 1322, Anesthesia | | | | | | | Intra-op | | | | | | + +-------+ +---------+---+---+ +---+---+ | | | +---+---+ + +-------+ +-------+---+---+ | propofol (DIPRIVAN) injection | Given | 01/10/20 | 20 mg | | | | Intravenous, PRN, Starting Tue | | 20 12:55 | | | | | 01/10/20 at 1251, Anesthesia | | PM PDT | | | | | Intra-op | | | | | | + +-------+ +-------+---+---+ +-------+ +-------+---+---+ | Given | 01/10/20 | 30 mg | | | | | 20 12:54 | | | | | | PM PDT | | | | +-------+ +-------+---+---+ | Given | 01/10/20 | 50 mg | | | | | 20 12:53 | | | | | | PM PDT | | | | +-------+ +-------+---+---+ +---+---+ | | | +---+---+ documented in this encounter
--- OUTSIDE RECORDS SUMMARY | ~2020-01-31 | XMS | Encounter Summary ---
Demographics + + + | Address | [address] | | | [place] [address] | + + + | Home Phone [...] | Author | [facility] | | | and [place] | + + + | Organization | [facility] | | [...] [place] | | | | | [address] | | + + + + + | Todd Paris | ECON | Unknown | | + + + + + Care Team Providers + +------+ + | Care Manager Economic Name | Role | Phone | + +------+ + | Lamont Santoyo MD | PCP | | + +------+ + Reason for Visit +--------+ + | Reason | Comments | +--------+ + | | | +--------+ + Auth/Cert +--------+--------+ + + + + | [...] Description | +--------+---------+ + + + | 01/09/ | Surgery | [facility] | Pepe Stone, | DISSECTION LYMPH | | 2019 | | [facility] | MD [address] | NODE - AXILLARY | | | | OPERATING ROOM [address] | [address] [facility] | | | | | [address] | [place] [address] | | | | | [place], [place] | [phone] | | | | | [address] | | | | | | [phone] | | | +--------+---------+ + + + [...] + + + | Blood Pressure | 143/79 | 01/10/2020 10:39 AM | | | | | PDT | | + + + + + | Pulse | 101 | 01/10/2020 10:39 AM | | | | | PDT | | + + + + + | Temperature | 36.7 C (98 F) | 01/10/2020 10:39 AM | | | | | PDT | | + + + + + | Respiratory Rate | 18 | 01/10/2020 10:39 AM | | | | | PDT | | + + + + + | Oxygen Saturation | 96% | 01/10/2020 10:39 AM | | | | | PDT | | + + + + + | Inhaled Oxygen | - | - | | | Concentration | | | | + + + + + | Weight | 60.8 kg (134 lb 0.6 | 01/10/2020 10:39 AM | | | | oz) | PDT | | + + + + + | Height | 170.2 cm (5' 7") | 01/10/2020 10:39 AM | | | | | PDT | | + + + + + | Body Mass Index | 20.99 | 01/10/2020 10:39 AM | | | | | PDT | | + + + + + documented in this encounter Discharge Instructions Instructions Wendy Guardado RN - 01/10/2020Formatting of this note might be different fr om the original. Lymph Node Biopsy/Excision Information and Post-Operative Care General Information The lymph system is the body s primary defense against infection. It consists of the sple en, tonsils, thymus, lymph nodes, lymph vessels, and the clear, slightly yellow fluid called lymph. These components produce and transport white blood cells called lymphocytes and macr ophages that rid the body of infection. The lymph system is also involved in the production of antibodies. Antibodies are proteins that fight bacteria, viruses, and other foreign mater ials that enter the body. The lymph vessels are similar to veins, only instead of carrying blood as veins do, they ci rculate lymph to most tissues in the body. Lymph nodes are about 600 small, moran-shaped jose ections of tissues found along the lymph vessel. They produce cells and proteins that fight infection and clean and filter lymph. Lymph nodes are sometimes called lymph glands, althoug h they are not true glands. When someone talks about having swollen glands, they are actuall y referring to lymph nodes. Normal lymph nodes are no larger than 0.5 inches in diameter and are difficult to feel. How ever, lymph nodes can enlarge to greater than 2.5 inches and can become sore. The most commo n cause of swollen lymph nodes is infection, particularly viral infections, such as the comm on cold. Parasitic and bacterial infections such as strep throat, mumps, measles, ear infect ions, tooth infections, mononucleosis, wound infections, tuberculosis, some sexually transmi tted diseases, toxoplasmosis, or cat scratch fever can also cause swollen lymph nodes. Also, immune system disorders such as lupus, rheumatoid arthritis, and HIV and some cancers such as lymphoma, leukemia, and cancers that have spread to the lymph nodes can cause lymph node swelling. Open lymph node biopsy is a surgical procedure done under general anesthesia. The surgeon selvin marcanoes a small incision and removes either the entire lymph node or a slice of tissue that is then sent to the laboratory for examination. Open biopsy can be advantageous in that it is easier to detect and identify the correct tis jenni type in a large piece of tissue. Also, lymph nodes deep in the body can be sampled. The operation is usually done in a surgery center or hospital under general anesthesia and takes about a half an hour to perform. You [facility] Possible Complications As with any surgical procedure, complications can occur. Some complications associated with lymph node biopsies may include, but are not limited to, the following: adverse reaction to anesthesia, injury to other organs, nerve damage at the biopsy site resulting in numbness, as well as bleeding or infection at the biopsy site. Post-Operative Care The instructions below tell you what you should and should not do once you get home. It ma y take a day or more to fully recover from anesthesia. For at least the next [address] use machinery or power tools, do not drink alcohol, and do not make any major deci sions. We recommend following these guidelines until you are no longer taking prescription pain medication. Diet ? Start with liquids and light, senh-vq-wczunj foods. As you feel up to it, slowly return to your normal diet. ? Avoid foods that cause constipation like milk and cheese. Instead increase fiber to inclu de fruits, vegetables, rice and grains. ? Drink at least six to eight glasses of water or other nonalcoholic fluids (fruit juices) a day. Activity ? Rest the remainder of the day and you may then advance your activity as tolerated. ? At first, you may be sore and find that you tire easily. You may even nap during the day. You may need to take some pain medication for a few days. ? In several days, you will return to your normal activity. Do not engage in sports, heavy work, or lifting more than 10 pounds for three weeks after surgery. ? If you exercise, you can resume a fitness program after three weeks, as tolerated. ? You may receive a return to work slip at your follow-up appointment with Dr. Stone, yoanna espinoza. Pain Relief ? Pain can be expected at the incision site and surrounding area. ? Take prescription pain relief medication as ordered. Pain medication will be prescribed as needed following surgery. The medication should be taken before pain becomes too severe. You should take the medication with some food to avoid an upset stomach. ? Constipation is a common side effect of pain pills. If you have not had a bowel movement within 24 hours of surgery, obtain a laxative, such as Milk of Magnesia, rfvm-mdx-onmpaim an d use as directed to resolve constipation. ? An ice bag may be used intermittently for the first one or two days. ? If you are experiencing severe pain that is not relieved by the medication, please call Angela Stone s office. ? Do not drive a vehicle or operate machinery while taking prescription pain medication. ? You may resume aspirin or anti-inflammatory medications 10 days after surgery, or when th e pain begins decreasing and prescription pain medication is no longer necessary to control the pain. ? If you are taking Plavix or Coumadin/ Warfarin, please discuss with Dr. Stone when you m ay resume taking these medications after surgery. What to Expect ? Moderate amount of swelling, tenderness, bruising, and leaking of lymphatic fluid (clear yellow) at incision can be expected after surgery. ? The bruising, tenderness and leaking of lymphatic fluid should subside after two weeks. ? The firmness and swelling at the biopsy site may last for eight weeks. ? It is not unusual for some bleeding to be seen coming through the bandages. Keep your in cision and bandage clean and dry. ? You may remove the initial bandage and shower 48 hours after surgery. ? Redress your incision site daily after showering until your appointment with Dr. Stone. When to Call Dr. Stone ? Greenish or foul smelling drainage is noticed. ? Temperature over 101 degrees. ? Increased pain, redness, and/or swelling. ? Persistent nausea and vomiting after surgery. *Be sure to schedule a follow-up appointment for 10 days after your procedure.* Discharge Instructions: Caring for Your Cullen-Kyle Drainage Tube Your doctor discharges you witha Cullen-Kyle drainage tube. Doctors commonly leave this drain within the abdomen and other cavities after surgery. Ithelps drain and collect bloo d and body fluid after surgery. This can prevent swelling and reduces the risk for infection . . The tube is held in place by a few stitches. It's covered with a bandage. Your doctor wi ll remove the drain when he or she determines you no longer need it. Home care Don t sleep on the same side as the tube. Secure the tube and bag inside your clothing with a safety pin. This helps keep the tube from being pulled out. Empty your drain at least twice a day. Empty it more often if the drain is full. Wash and dry your hands before emptying the drain. ? Lift the opening on the drain. ? Drain the fluid into a measuring cup. ? Record the amount of fluid each time you empty the drain. Include the date and time it wa s emptied. Share this information with your healthcare provider on your next visit. ? Squeeze the bulb with your hands until you hear air coming out of the bulb if your health care provider has instructed you to do so (sometimes the bulb is used as a reservoir without suction). Check with your healthcare provider about specific drain instructions. ? Close the opening. Change the dressing around the tube every day. ? Wash your hands. ? Remove the old bandage. ? Wash your hands again. ? Wet a cotton swab and clean the skin around the incision and tube site. Use normal saline solution (salt and water).Or, you canuse warm, soapy water. ? Put a new bandage on the incision and tube site. Make the bandage large enough to cover t he whole incision area. ? Tape the bandage in place. Keep thebandage and tube site dry when you shower. Ask your healthcare provider about the best way to do this. Stripping the tube helps keep blood clots from blocking the tube. Ask your nurse h ow often you should strip the tube. Stripping may not be needed, depending on where and why your doctor placed the tube. It may even be dangerous insome cases. ? Hold the tubing where it leaves the skin, with one hand. This keeps it from pulling on th e skin. ? Pinch the tubing with the thumb and first finger of your other hand. ? Slowly and firmly pull your thumb and first finger down the tubing. You may find it helpf ul to hold an alcohol swab between your fingers and the tube to lubricate the tubing. ? If the pulling hurts or feels like it s coming out of the skin, stop. Begin again more gently. Follow-up care Make a follow-up appointment as directed by our staff. When to call your healthcare provider Call your healthcare provider right away if you have any of the following: New or increased pain around the tube Redness, swelling, or warmth around the incision or tube Drainage that is foul-smelling Vomiting Fever of 100.4F ( 38C) or higher, or as directed by your provider Fluid leaking around the tube Incision seems not to be healing Stitches become loose Tube falls out or breaks Drainage that changes from light pink to dark red Blood clots in the drainage bulb A sudden increase or decrease in the amount of drainage (over 30 mL) [employer] last reviewed this educational content on 01/18/201919994653-9780 [employer]. [address] [place] [address], [place] [address]. All righ ts reserved. This information is not intended as a substitute for professional medical care. Always follow your healthcare professional's instructions. After Your Surgery You ve just had surgery. During surgery, you received medication called anesthesia to andres p you comfortable and pain-free. After surgery, you may experience some pain or nausea. This is common. Going Home Have an adult family member or friend drive you home. For the first 24 hours after your mora elizabeth: ? Do not drive or use heavy [...] skin turning blue, or fainting Call 911. Acetaminophen; Oxycodone tablets Brand Names: Endocet, Nalocet, Percocet, Primlev, Roxicet What is this medicine? ACETAMINOPHEN; OXYCODONE (a set a KRISH agustín fen; ox i KOE done) is a pain reliever. It is use d to treat moderate to severe pain. How should I use this medicine? Take this medicine by mouth with a full glass of water. Follow the directions on the prescr iption label. You can take it with or without food. If it upsets your stomach, take it with food. Take your medicine at regular intervals. Do not take it more often than directed. A special MedGuide will be given to you by the pharmacist with each prescription and refill . Be sure to read this information carefully each time. Talk to your general office assistant regarding the use of this medicine in children. Special care may be needed. What side effects may I notice from receiving this medicine? Side effects that you should report to your doctor or health acute care surgeon as soon as p ossible: allergic reactions like skin rash, itching or hives, swelling of the face, lips, or tong ue breathing problems confusion redness, blistering, peeling or loosening of the skin, including inside the mouth signs and symptoms of liver injury like dark yellow or brown urine; general ill feeling or flu-like symptoms; light-colored stools; loss of appetite; nausea; right upper belly pain ; unusually weak or tired; yellowing of the eyes or skin signs and symptoms of low blood pressure like dizziness; feeling faint or lightheaded, f alls; unusually weak or tired trouble passing urine or change in the amount of urine Side effects that usually do not require medical attention (report to your doctor or health acute care surgeon if they continue or are bothersome): constipation dry mouth nausea, vomiting tiredness What may interact with this medicine? This medicine may interact with the following medications: alcohol antihistamines for allergy, cough and cold antiviral medicines for HIV or AIDS atropine certain antibiotics like clarithromycin, erythromycin, linezolid, rifampin certain medicines for anxiety or sleep certain medicines for bladder problems like oxybutynin, tolterodine certain medicines for depression like amitriptyline, fluoxetine, sertraline certain medicines for fungal infections like ketoconazole, itraconazole, voriconazole certain medicines for migraine headache like almotriptan, eletriptan, frovatriptan, bryan triptan, rizatriptan, sumatriptan, zolmitriptan certain medicines for nausea or vomiting like dolasetron, ondansetron, palonosetron certain medicines for Parkinson's disease like benztropine, trihexyphenidyl certain medicines for seizures like phenobarbital, phenytoin, primidone certain medicines for stomach problems like dicyclomine, hyoscyamine certain medicines for travel sickness like scopolamine diuretics general anesthetics like halothane, isoflurane, methoxyflurane, propofol ipratropium local anesthetics like lidocaine, pramoxine, tetracaine MAOIs like Carbex, Eldepryl, Marplan, Nardil, and Parnate medicines that relax muscles for surgery methylene blue nilotinib other medicines with acetaminophen other narcotic medicines for pain or cough phenothiazines like chlorpromazine, mesoridazine, prochlorperazine, thioridazine What if I miss a dose? If [...] the law. Store at room temperature between 20 and 25 degrees C (68 and 77 degrees F). This medicine may cause harm and if it is taken by other adults, children, or pets. R eturn medicine that has not been used to an official disposal site. Contact the [facility] at [phone] or your [facility] government to find a site. If you [...] an unusual or allergic reaction to acetaminophen, oxycodone, other opioid analgesics, ot her medicines, foods, dyes, or preservatives or trying to get breast-feeding What should I watch for while using this medicine? Tell your doctor or health acute care surgeon if your pain does not go away, if it gets wors e, or if you have new or a different type of pain. You may develop tolerance to the medicine . Tolerance means that you will need a higher dose of the medication for pain relief. Tolera nce is normal and is expected if you take this medicine for a long time. Do not [...] or sucking hard candy, and drinking plenty or water may help. Contact your doctor if the problem does not go away or is severe. NOTE:This sheet is a summary. It may not cover all possible information. If you have questi ons about this medicine, talk to your doctor, pharmacist, or health care provider. Copyright 2020 [employer] Take Back Locations, Pain Management [...] drugs that include pain relievers available leg ally by prescription. Opioid pain relievers can be [...] proper disposal of unused medications, please visit: http://www.takebackyourmeds.org/, https://apps.deadiversion.0xdatao[employer].gov/pubdispsea [facility]/spring/main?execution=e1s3 ? Activities of daily living (ADL) are routine activities people do every day without lucien tance. Non-pharmacological interventions can be useful and incorporated to help with activit ies of daily living. These include, but are not limited to: Repositioning, cold/warm malka ses, massage, decreasing environmental stimulation (decrease lighting, decrease noise), musi c, aromatherapy. JANUARY 2018 | [facility] Pub [phone] Location Address Phone # Take Back Hours Accepts Does NOT Accept [facility] Department [address] [place] [address] [phone] Lobby hours: M-F: 8am-5pm Sat-Sun: See their Facebook page for dates (every few weeks) - Pills: tablets, capsules (in cluding controlled substances) - Liquids - Topical lotions, gels, creams, ointments - Sharps, syringes (including insulin) - Inhalers [place] [facility] [address] [place] [address] [phone] Lobby hours: M-F: 8am-12pm, 1pm-5pm (closed 12-1pm) Sat-Sun: CLOSED - Pills: tablets, capsules (including controlled substances) - Liquids - Topical lotions, gels, creams, ointments - Sharps, syringes (including insulin) - Inhalers [place] [employer] [facility] [address] [place] [address] [phone] Lobby hours: M-F: 8:30am-4:30pm Sat-Sun: CLOSED - Pills: tablets, capsules (including controlled substances) - Patches - Liquids - Topical lotions, gels, creams, ointments - Sharps, syringes (including insulin) - Inhalers [place] [employer] [facility] [address], [place] [id number] [phone] Lobby hours: M-F: 8am-5pm Sat-Sun: CLOSED - Pills: tablets, capsules (including controlled substances) - Liquids - Topical lotions, gels, creams, ointments - Sharps, syringes (including insulin) - Inhalers [facility] (store #[id number]) [address] [place] [address] [phone] Pharmacy hours: M-F: 9am-9pm Sat: 8am-9pm Sun: 9am-9pm - Pills: tablets, capsules (including controlled substances) - Liquids - Topical lotions, gels, creams, ointments - Sharps, syringes (including insulin) - Inhalers [employer] (local branch of [employer] [address] 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 | | | | | + + + +---------+ + + | | Take 1 tablet by | 30 | 0 | 01/10/20 | | | oxyCODONE-acetaminop | mouth every 4 hours | tablet | | 20 | 0 | | hen (PERCOCET) 5-325 | as needed for Pain. | [...] + + documented as of this encounter Progress Notes Wendy Guardado RN - 01/10/2020 4:21 PM PDTDischarge instructions, including signs and s ymptoms of surgical site infection, and DVT prevention discussed with patient at bedside and over the phone. Prescriptions given and side effects explained. Patient and family state understanding. No further questions. Vital signs stable. MARCO drain instructions give n and drain emptied at bedside while providing instructions. Site clean, dry, and intact. Di scharged per order. Wendy Guardado RN 01/10/20 4:22 PM PDT documented in this e ncounter H&P Notes Pepe Stone MD - 01/06/2020 11:13 AM PDTFormatting of this note might be different fr om the original. Fátima Paris is an 79 y.o. female. HPI This patient returns for follow-up after undergoing staging maneuvers for malignant melanom a the index finger of the right hand. She is lost the phalanx of the right hand due to wide excision of melanoma and I performed a sentinel lymph node biopsy of the right axilla. The results of the sentinel lymph node biopsy show the lymph node to be positive with metastati c melanoma with extracapsular spread. There is discussion regarding management was either c areful observation versus lymph node dissection. With extracapsular spread it was suspiciou s for further lymphadenopathy involvement and therefore it is been recommended that she comp lete an axillary dissection she is here for that discussion. The wound is healing reasonabl y well is slightly thickened but there is no signs of redness infection or seroma or abscess . She is scheduled to have a PET CT scan next week through her radiation oncologist. Past Medical History: Diagnosis Date Acid reflux disease Chronic diarrhea Disc disorder 2 para 2 Low back pain Malignant melanoma (HCC) Muscle strain Seasonal allergies Strain of muscle, fascia and tendon of lower back, initial encounter Viral meningitis 1976,1982, 1986 Weight loss Allergies: Allergies Allergen Reactions Pepcid [Famotidine] Anaphylaxis Cardiac arrest Demerol [Meperidine] Other (See Comments) Per pt makes her feel odd Principal Problem: Malignant melanoma of finger of right hand not currently . Past Medical History: Diagnosis Date Acid reflux [...] NODE GENERAL; Surgeon: Pepe Stone MD; Location: [facility] MAIN [facility] R OTHER SURGICAL HISTORY Right 12/13/2019 Procedure: EXCISION LESION HAND / FINGER, EXCISIONAL BIOPSY RIGHT INDEX FINGER RAY RESECTI ON; Surgeon: David Gomez MD; Location: [facility]IN OR Allergies Allergen Reactions Pepcid [Famotidine] Anaphylaxis Cardiac arrest Demerol [Meperidine] Other (See Comments) Per pt makes her feel odd No current facility-administered medications on file prior to encounter. Current Outpatient Medications on File Prior to Encounter Medication Sig Dispense Refill ascorbic acid (VITAMIN [...] as needed for Nausea. 24 tablet 0 Vit-Fe Fumarate-FA ( COMPLETE) 14-0.4 MG TABS Take 1 tablet by mouth D aily. Social History Socioeconomic History Marital status: Spouse [...] since quittin.7 Smokeless tobacco: Never Used Substance and Sexual [...] file Gets together: Not on file Attends druze service: Not on file Active member of [...] Content: Thought content normal. Judgment: Judgment normal. Resection of the finger site looks remarkably well and she is very functional with her hand . The axillary lymph node biopsy site is healing without lymphocele or abscess or infection . 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 The risk of lymphedema or complications were discussed in some deta il. The risk of further metastases to the lymph nodes were also discussed. My advice is th at the patient complete her PET CT scan. If that does not show any signs of metastatic dise ase then completion lymph node lymph node dissection I think is warranted. [facility] after that would be appropriate informed consent is granted we will schedule appropriately Pepe Stone MD 01/06/2020 documented in this encounter Miscellaneous Notes Op Note - Pepe Stone MD - 01/10/2020 1:28 PM [facility] Service: General Surgery Operative Note Pre-operative Diagnosis: Metastatic malignant melanoma to the right axilla Post-operative Diagnosis: same Procedure(s): Right axillary lymph node dissection Surgeon: Pepe Stone MD Sand Technician(s): Anesthesia: General endotracheal anesthesia Estimated Blood Loss: less than 50 Other: Not applicable Indications: See pre-operative history and physical Findings: Complications: None Description of Procedure: Patient was placed supine on the operative table in general anest hesia with her arms extended in the right axilla prepped and draped standard fashion. A chery table safety pause accomplished. The previous transverse incision was elliptically incised to make it a little bit larger including and using the incision skin and centimeters tissue the tissue planes were dissected circumferentially superior medially to the to the pectorali s major muscle which included the division of the fascia up to the apex of the axilla inferi carolyn to the serratus anterior muscle laterally to the anterior border latissimus dorsi. We then used began dissecting the tissue off of the undersurface of the pectoralis minor until we got to the chest wall medially. We then swept the tissues off the chest wall toward the superior apex of the axilla until we identified the axillary vein at the at the thoracic inl et we unroofed the axillary vein out to the latissimus dorsi and swept all tissue medially a nd inferiorly down into the specimen. The long thoracic nerve was identified on the lateral chest wall and preserved as further axial contents were swept off the latissimus dorsi musc le we then encountered the thoracodorsal neurovascular bundle and preserved it is further ax illary contents were swept off. Penetrating veins were clipped and divided off the axillary vein and at the lateral border of latissimus dorsi the the left axillary contents were swep t inferiorly until we had all the tissue below the thoracodorsal neurovascular bundle using cautery we then cauterized the tissue off of the latissimus dorsi and serratus anterior musc le and sent en bloc for pathologic evaluation in formalin. This was labeled right axillary contents hemostasis finalized with cautery and clips. Irrigation with sterile saline establ ished. Lateral stab wound was used to place a 10 mm flat Cullen-Kyle drain it was anchore d in place with 2-0 Prolene sutures. The wound was then closed proper using 3-0 Vicryl sutu re and 4-0 Monocryl suture with Steri-Strips and dressings applied. Condition: stable Pepe Stone MD 01/10/2020 1:28 PM PDT nterval H&P Note (u nlinked) - Pepe Stone MD - [facility]10[facility]2020 [facility] Pre-Operative History & Physical Interval Update There have been no significant clinical changes since the completion of the above H&P. Toda y's physical assessment showed Regular rate and rhythm or S1S2 present and clear Pepe Stone MD 01/10/2020 *CORE MEASURES REMINDER: If the patient has a known or suspected infection prior to surger y, please add diagnosis to the problem list (consider: Infection 136.9).Electronically sign ed by Pepe Stone MD at 01/10/2020 12:08 PM PDTdocumented in this encounter Plan of Treatment +--------+---------+ + + + | Date | Type | Specialty | Care Team | Description | +--------+---------+ + + + | 01/31/ | Office | General Surgery | Pepe Stone, | | 2019 | Visit | | MD [address] | | | | | | [address] [place], | | | | | | [place] [address] | | | | | | [phone] | | | | | | | | +--------+---------+ + + + | 02/01/ | Office | Orthopedic Surgery | David Gomez, | | | 2019 | Visit | | [address] | | | | | | [place] [address] | | | | | | [phone] | | | | | | | | +--------+---------+ + + + documented as of this encounter Procedures + +--------+ + + + | Procedure Name | Priori | Date/Time | Associated Diagnosis | Comments | | | ty | | | | + +--------+ + + + | DISSECTION LYMPH | | 01/10/2020 | Malignant melanoma | | | NODE | | 12:23 PM | of finger of right | | | | | PDT | hand (HCC) | | + +--------+ + + + +---+--------+ | | | | | Specia | | | l | | | Needs | | | SAFETY INSTRUCTOR | | | reques | | | bailey , | | | 1200 | | | start | | | time | | | per | | | office | | | .9.11 | +---+--------+ + +--------+ + + + | POC CORONAVIRUS | Routin | 01/10/2020 | | Results for this | | (COVID-19) NAAT | e | 10:43 AM | | procedure are in the | | | | PDT | | results section. | + +--------+ + + + | SURGICAL PATHOLOGY | Routin | 01/10/2020 | Malignant melanoma | Results for this | | EXAM | e | 12:00 AM | of finger of right | procedure are in the | | | | PDT | hand (HCC) | results section. | + +--------+ + + + documented in this encounter Results POC Coronavirus (COVID-19) NAAT (01/10/2020 10:43 AM PDT) + + + + + [...] structure) | + + + + + | Narrative | Performed At | + + + | SARS-CoV-2, RNA (COVID-19) EUA Negative results, using the | | | Locu ID NOW Platform, should be treated as [...] | sooner. | | + + + Surgical Pathology Exam (01/10/2020 12:00 AM PDT) + + | Specimen | + + | Tissue - Lymph node | | sample (specimen) | + + + + + | Narrative | Performed At | + + + | SPECIMEN(S): A | [place] [facility] | | RIGHT AXILLARY DISSECTION SPECIMEN SOURCE:A. RIGHT AXILLARY | [facility]YTE | | DISSECTION CLINICAL HISTORY:Dissection lymph node | | | | | | axillary. 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 AMB:emh:C2NR MICROSCOPIC | | | EXAMINATION:Histologic sections of all submitted blocks are examined | | | by light microscopy. These findings, together with the gross | | | examination, support the pathologic diagnosis. GROSS DESCRIPTION:The | | | specimen, labeled "SK, lymph nodes, axillary, right, axillary | | | dissection-right," is received in formalin and consists of a portion | | | of yellow-mckeon soft tissue (104 g, 9.2 x 8.2 x 3.4 cm) with anattached | | | ellipse of pink-mckeon skin (4.7 cm in length by 0.7 cm in width). The | | | fat is palpated and 20 possible lymph nodes (ranging in size from | | | 0.1-1.3 cm in greatest dimension) identified. There isalso a firm | | | pink-mckeon to yellow-mckeon mass (4.2 x 2.1 x 1.4 cm) with an ill-defined, | | | yellow to brown-mckeon and hemorrhagic cut surface. Tobacco Sweeper | | | sections are submitted as follows: (A1) 7 possible lymph | | | nodes, intact(A2) 7 possible nodes, intact(A3) 3 | | | possible lymph nodes, one inked blue, one inked black, one uninked, | | | all bisected(A4) 2 possible lymph nodes, one inked blue, one | | | uninked, both bisected(A5) one possible lymph node, | | | trisectedA6-A7) massAC (under the direct supervision of a pathologist) | | | The Gross Description was prepared using a voice recognition system. | | | The report was reviewed for accuracy; however, sound-alike word | | | errors, addition and/or deletions may occur. If there is anyquestion | | | about this report, please contact Client Services. PERFORMING | | | LABORATORY:The technical component was performed by [facility] | | | [facility], [address] [place] [address] (Leno Sewer: | | | Grace Godinez MD; CLIA# [id number]).Professional interpretation was | | | performed by [facility] [address] | | | [place] [address] (Leno Sewer: Donnie | | | Clay Arteaga; CLIA#: [id number]). Diagnostician: Grace Godinez | | | MDPathologistElectronically Signed 01/16/2020 | | |Professional interpretation was performed by [facility], [address] [place] [id number] (Leno Sewer: Donnie Arteaga M.D.; ELAINE#: [id number]). | | | | | |Diagnostician: Grace Godinez MD | | |Pathologist | | |Electronically Signed 01/16/2020 | | | | | | | [...] | | + +--------+---------+------+------+------+ + +---+ | albuterol 2.5 mg/3 mL nebulizer | | | solution 2.5 mg 2.5 mg, | | | Nebulization, ONCE PRN, Wheezing, | | | Starting 01/10/20 at 1328, | | | For 1 dose, Notify anesthesia if | | | patient is wheezing and does not | | | have a history of asthma or COPD | | | or current smoking., | | | Recovery/Phase I | | + +---+ | | | + +---+ + +---------+ +--------+-------+---+ | balanced electrolytes in water | New [...] | | | | | + +---------+ +--------+-------+---+ +---------+ +---+---+---+ | New Bag | 01/10/20 | | | | | | 20 12:00 | | | | | | PM PDT | | | | +---------+ +---+---+---+ +---+---+ | | | +---+---+ + +-------+ +--------+---+---+ | bupivacaine (PF) (MARCAINE) | Given | 01/10/20 | 10 mLs | | | | 0.25% 30 mL with lidocaine | | 20 1:22 | | | | | 1%-EPINEPHrine 1:100,000 20 mL | | PM PDT | | | | | Optesia Mixture PRN, Starting | | | | | | | 01/10/20 at 1322, Intra-op | | | | | | + +-------+ +--------+---+---+ + +---+ | | | + +---+ | dextrose 50% injection 12.5-25 | | | g 12.5-25 g, Intravenous, EVERY | | | 15 MIN PRN, Low Blood Sugar, For | | | hypoglycemia. Give 12.5g (25ml) | | | IV if blood glucose 50-69 | | | mg/dL. Give 25g (50ml) IV if | | | blood glucose < 50, Starting Tue | | | 01/10/20 at 1328, Give over 2 min. | | | Repeat in 15 min if blood | | | glucose remains < 70 mg/dL. | | | Repeat blood glucose in 30 min | | | once blood glucose > 70., | | | Recovery/Phase I | | + +---+ | | | + +---+ + +-------+ +--------+---+---+ | fentaNYL (PF) injection 25-50 | Given | 01/10/20 | 50 mcg | | | | mcg 25-50 mcg, Intravenous, | | 20 2:18 | | | | | EVERY 5 MIN PRN, Pain, Initial | | PM PDT | | | | | postop medication for URGENT PAIN | | | | | | | OR ESCALATING PAIN, Starting Tue | | | | | | | 01/10/20 at 1328, For 4 doses, | | | | | | | First dose must be lowest dose. | | | | | | | Use Pasero Sedation Scale. | | | | | | | [Opioid tolerant = One week or | | | | | | | longer, cfvccf-cmc-qsjiv use of | | | | | [...] mcg | | | | | 20 2:09 | | | | | | PM PDT | | | | +-------+ +--------+---+---+ | Given | 01/10/20 | 50 mcg | | | | | 20 1:49 | | | | | | PM PDT | | | | +-------+ +--------+---+---+ +---+---+ | | | +---+---+ + +-------+ +--------+---+---+ | HYDROmorphone (DILAUDID) | Given | 01/10/20 | 0.4 mg | | | | injection 0.2-0.6 mg 0.2-0.6 mg, | | 20 2:29 | | | | | Intravenous, EVERY 5 MIN PRN, | | PM PDT | | | | | Pain, Starting Thu01/10/20 at | | | | | | | 1328, First dose must be lowest | | | | | | | dose, can increase subsequent | | | | | | | doses by 0.2mg within dosing | | | | | | | range. If patient meets opioid | | | | | | | tolerant definition, can start | | | | | | | with 0.4mg dose. [Maximum total | | | | | | | PACU dose 2 mg] Use Pasero | | | | | | | Sedation Scale. [Opioid tolerant | | | | | | | = One week or longer, | | | | | | | jmbxhn-zrx-cbsao use of at least | | | | | | | the following DAILY dose: 60mg | | | | | | | oral morphine, 60mg oral | | | | | | | hydrocodone, 30mg oral oxycodone, | | | | | | | 8mg oral hydromorphone, fentanyl | | | | | | | patch 25mcg/hr, or equivalent | | | | | | | dose of another opioid], | | | | | | | Recovery/Phase I | | | | | | + +-------+ +--------+---+---+ +-------+ +--------+---+---+ | Given | 01/10/20 | 0.4 mg | | | | | 20 2:13 | | | | | | PM PDT | | | | +-------+ +--------+---+---+ | Given | 01/10/20 | 0.2 mg | | | | | 20 2:02 | | | | | | PM PDT | | | | +-------+ +--------+---+---+ + +---+ | | | + +---+ | ondansetron (ZOFRAN) injection | | | 4 mg 4 mg, Intravenous, EVERY 4 | | | HOURS PRN, Nausea, Vomiting, | | | Starting 01/10/20 at 1328, | | | Recovery/Phase I | | + +---+ | | | + +---+ + +-------+ + +---+---+ | oxyCODONE-acetaminophen | Given | 01/10/20 | 1 tablet | | | | (PERCOCET) 5-325 mg per tablet | | 20 3:11 | | | | | 1-2 tablet 1-2 tablet, Oral, | | PM PDT | | | | | EVERY 4 HOURS PRN, Pain, Starting | | | | | | | 01/10/20 at 1454, If | | | | | | | ineffective use Oxycodone if | | | | | | | ordered. If not tolerated use | | | | | | | [place] 10/325 if ordered., | | | | | | | Post-op/Phase II | | | | | | + +-------+ + +---+---+ + +---+ | | | + +---+ | promethazine (PHENERGAN) (IV | | | ONLY) injection 6.25 mg 6.25 mg, | | | Intravenous, EVERY 15 MIN PRN, | | | Nausea, Starting 01/10/20 at | | | 1328, For 4 doses, TAKE | | | PRECAUTIONS WHEN ADMINISTERING | | | Dilute to 10-20 mL with NS. Give | | | over 2-3 minutes into large vein. | | | Use Ondansetron first if both | | | are ordered., Recovery/Phase I | | + +---+ | | | + +---+ documented in this encounter
--- OUTSIDE RECORDS SUMMARY | ~2020-01-31 | XMS | Encounter Summary ---
Demographics + + + | Address | [address] | | | [place] [address] | + + + | Home Phone | | + + + | Preferred Language | Unknown | + + + | Marital Status | | + + + | Evangelical Affiliation | 1077 | + + + | Race | White | + + + | Ethnic Group | Not or | + + + Author + + + | Author | [facility] | | | and [place] | + + + | Organization | [facility] | | | [...] [place] | | | | | [address] | | + + + + + | Todd Paris | ECON | Unknown | | + + + + + Care Team Providers + +------+ + | Care Copper Etcher Name | Role | Phone | + [...] | Radiology | Diagnoses | Chase, | [facility] | | Review | | | Malignant | Pepe Gallegos MD | REGIONAL | | | | | melanoma of | [address] | MEDICAL | | | | | finger of | [address] | [address] | | | | | right hand | [address] | | | | | (HCC) | [place], [place] | [place] | | | | | Procedures | [address] | [address] | | | | | [place] Lymph | Phone: | Phone: | | | | | System | [phone] | [phone] | | | | | Melanoma | Fax: | Fax: | | | | | | [phone] | [phone] | + +--------+ + + + + Reason for Visit Diagnostic/Screening (Routine) + +--------+ + + + + | Status | Reason | Specialty | Diagnoses / | Referred By | Referred To | | | | | Procedures | Contact | Contact | + +--------+ + + + + | Pending | | Radiology | Diagnoses | Chase, | [facility] | | Review | | | Malignant | Pepe Gallegos MD | REGIONAL | | | | | melanoma of | [address] | MEDICAL | | | | | finger of | [address] | [address] | | | | | right hand | [address] | | | | | (HCC) | [place], [place] | [place] | | | | | Procedures | [address] | [address] | | | | | NM Lymph | Phone: | Phone: | | | | | System | [phone] | [phone] | | | | | Melanoma | Fax: | Fax: | | | | | | [phone] | [phone] | + +--------+ + + + + Encounter Details +--------+ + + + + | Date | Type | Department | Care Team | Description | +--------+ + + + + | 12/12/ | Hospital | [facility] | ChasePepe yung, | Malignant melanoma | | 2020 | Encounter | [facility] | MD [address] | of finger of right | | | | NUCLEAR MEDICINE | [address] [place], | hand (HCC) | | | | [address] | [place] [address] | | | | | [place], [place] | [phone] | | | | | [address] | | | | | | [phone] | | | +--------+ + + + [...] + + documented as of this encounter Medications at Time of Discharge [...] | | | | 0 | | ([facility] | | | | | | [...] | | 2020 | Visit | | [address] | | | | | | [address] [place], | | | | | | [place] [address] | | | | | | [phone] | | | | | | | | +--------+---------+ + + + | 10/15/ | Office | Orthopedic Surgery | David Gomez, | | | 2019 | Visit | | [address] | | | | | | [place] [address] | | | | | | [phone] | | | | | | | | +--------+---------+ + + + documented as of this encounter Procedures + +--------+ + + + | Procedure Name | Priori | Date/Time | Associated Diagnosis | Comments | | | ty | | | | + +--------+ + + + | NM LYMPH SYSTEM | Routin | 12/13/2019 | Malignant melanoma | Results for this | | MELANOMA | e | 3:51 PM | of finger of right | procedure are in the | | | | PDT | hand (HCC) | results section. | + +--------+ + + + documented in this encounter Results NM Lymph System Melanoma [...] prepared by the nuclear | | | rehabilitation medicine physician. The right index finger was prepped in [...] Procedure Note | + + | Jaquan, [id number] - 12/15/2019 12:59 PM PDT | | NM LYMPH SYSTEM MELANOMA | | | | CLINICAL INFORMATION: | | Pre operative, Patient is scheduled for surgery on 12/13/19 | | | | COMPARISON: | | None | | | | PROCEDURE: | | Radiopharmaceutical was prepared by the nuclear plant instrument technician. | | The right index finger was [...] in this encounter Administered Medications + +--------+ + +------+------+ | Medication Order | MAR | Action | Dose | Rate | Site | | | Action | Date | | | | + +--------+ + +------+------+ | technetium TC-99M sulfur | Given | 12/13/19 | 1 | | | | colloid injection 1 millicurie 1 | | 20 3:52 | millicur | | | | millicurie, Subdermal, ONCE PRN, | | PM PDT | ie | | | | Other, Starting 12/13/19 at | | | | | | | 1552, For 1 dose, Nuclear | | | | | | | Medicine | | | | | | + +--------+ + +------+------+ +---+---+ | | | +---+---+ documented in this encounter
--- OUTSIDE RECORDS SUMMARY | ~2020-01-31 | XMS | Encounter Summary ---
Demographics + + + | Address | [address] | | | [place] [address] | + + + | Home Phone | | + + + | Preferred Language | Unknown | + + + | Marital Status | | + + + | Mosque Affiliation | 1077 | + + + | Race | White | + + + | Ethnic Group | Not or | + + + Author + + + | Author | [facility] | | | and [place] | + + + | Organization | [facility] | | [...] [place] | | | | | [address] | | + + + + + | Todd Paris | ECON | Unknown | | + + + + + Care Team Providers + +------+ + | Care Executive Chef Assistant Name | Role | Phone | + +------+ + | Lamont Santoyo MD | PCP | | + +------+ + Reason for Visit + + + | Reason | Comments | + + + | Follow-up | Patient is here today for follow up on MARCO drain. Pt states drain | | | output has been less that 15cc daily x3days. | + + + Encounter Details +--------+---------+ + + + | Date | Type | Department | Care Team | Description | +--------+---------+ + + + | 01/11/ | Office | [facility] | Pepe Stone, | Malignant melanoma | | 2020 | Visit | GENERAL SURGERY [address] | MD [address] | of finger of right | | | | [address] | [address] [place], | hand (HCC) (Primary | | | | [place], [place] | [place] [address] | Dx) | | | | [address] | [phone] | | | | | [phone] | | | +--------+---------+ + + + [...] + + + | Blood Pressure | 180/92 | 01/12/2020 3:28 PM | | | | | PDT | | + + + + + | Pulse | 100 | 01/12/2020 3:28 PM | | | | | PDT | | + + + + + | Temperature | 36.6 C (97.9 F) | 01/12/2020 3:28 PM | | | | | PDT | | + + + + + | Respiratory Rate | - | - | | + + + + + | Oxygen Saturation | 98% | 01/12/2020 3:28 PM | | | | | PDT [...] + documented in this encounter Progress Notes Pepe Stone MD - 01/12/2020 3:30 PM PDTPatient comes for follow-up after axillary di ssection on the right. She states that the Cullen-Kyle drain is nonfunctioning and holdin g of negative suction. She has minimal amounts of pain but she is concerned about the drain is functioning. On exam she is quite ecchymotic but no real hematomas present. The drain site is evaluated and there is some slight holes that are protruding causing of the collapse of the grenade. Therefore the drain is advanced re-re-taped in place redressed and the grenade now holds a good seal. The patient was instructed on how to maintain a seal and measure the output. Impression of successful postoperative management to this point Plan return to clinic next week probably for drain removal or if the drain continues to mal function. documented i n this encounter Plan of Treatment +--------+---------+ + + + | Date | Type | Specialty | Care Team | Description | +--------+---------+ + + + | 01/31/ | Office | General Surgery | Pepe Stone, | | 2019 | Visit | | MD [address] | | | | | | [address] [place] | | | | | | [place] [address] | | | | | | [phone] | | | | | | | | +--------+---------+ + + + | 02/01/ | Office | Orthopedic Surgery | David Gomez, | | 2019 | Visit | | [address] | | | | | | [place] [address] | | | | | | [phone] | | | | | | | | +--------+---------+ + + + documented as of this encounter Visit Diagnoses + + | Diagnosis | + + | 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
--- OUTSIDE RECORDS SUMMARY | ~2020-01-31 | XMS | Encounter Summary ---
Demographics + + + | Address | [address] | | | [place] [address] | + + + | Home Phone | | + + + | Preferred Language | Unknown | + + + | Marital Status | | + + + | Congregation Affiliation | 1077 | + + + | Race | White | + + + | Ethnic Group | Not or | + + + Author + + + | Author | [facility] | | | and [place] | + + + | Organization | [facility] | | [...] [place] | | | | | [address] | | + + + + + | Todd Paris | ECON | Unknown | | + + + + + Care Team Providers + +------+ + | Care Senior Svp Name | Role | Phone | + [...] | | | finger of | | [facility], | | | | | right hand | | [place] [address] | | | | | (HCC) | | Phone: | | | | | Procedures | | [phone] | | | | | SD EXC | | Fax: | | | | | MICHELLE/VAS MAL | | [phone] | | | | | SFT TIS [...] + + + + | 12/12/ | Anesthesia | [facility] | Sylwia Rhodes, | | | 2020 | [facility] | [address] | | | | | [address]PER[address] | [place] [address] | | | | | [address] | [phone] | | | | | [place], [place] | | | | | | [address] | Jacqueline Anderson, | | | | | [phone] | [facility] | | | | | | [address] | | | | | | [place] [address] | | | | | | [phone] | | | | | | | | +--------+ + + + + Anesthesia Record + + + + + | Procedure Name | Responsible | Anesthesia Start | Anesthesia Stop Time | | | Anesthesiologist | Time | | + + + + + | BIOPSY LYMPH NODE | Sylwia Rhodes MD | 12/13/19 1626 | 12/13/19 1746 | | GENERAL (Right | | | | | Axilla) | | | | + + + + + +----+---+ + + | Da | T | Event | Comment | | te | i | | | | | m | | | | | e | | | +----+---+ + + | 08 | 1 | An Start | Reassessment prior to anesthesia induction/procedure. | | /2 | 6 | | | | 5/ | 2 | | | | 20 | 6 | | | | 20 | | | | +----+---+ + + | | 1 | Antibiotic | | | | 6 | Given | | | | 2 | | | | | 7 | | | +----+---+ + + | | 1 | An | | | | 6 | Induction | | | | 3 | | | | | 2 | | | +----+---+ + + | | 1 | An | | | | 6 | Intubation | | | | 3 | | | | | 4 | | | +----+---+ + + | | 1 | Anesthesia | | | | 6 | Ready | | | | 3 | | | | | 8 | | | +----+---+ + + | | 1 | First | | | | 6 | Inc/Proc St | | | | 5 | | | | | 2 | | | +----+---+ + + | | 1 | Extubation/ | | | | 7 | Airway LDA | | | | 3 | Removal | | | | 8 | | | +----+---+ + + | | 1 | an stop | | | | 7 | data | | | | 4 | | | | | 0 | | | +----+---+ + + | | 1 | An Stop | Patient handed off to recovery nurse. | | | 4 | | | | | 6 | | | +----+---+ + + +------+ | Meds | +------+ + + + | Name | Total | + + + | fentaNYL | 175 mcg | + + + | lidocaine 2% | 60 mg | + + + | propofol | 150 mg | + + + | dexamethasone | 4 mg | + + + | ondansetron | 4 mg | + + + | phenylephrine | 150 mcg | + + + | ceFAZolin in dextrose (ANCEF) | 2 g | | IVPB 2 g | | + + + | phenylephrine | 1,400 mcg | + + + | labetalol | 10 mg | + + + | balanced electrolytes in water | 500 mL | | (PLASMALYTE-148/NORMOSOL-R) | | | infusion | | + + + + + | Name | + + [...] +--------+ + + + | Periph | 12/13/19; 1615; Left; Posterior | 12/13/19 1615 by | 12/14/19 1111 by | | eral | (dorsal); Hand; [id number] | Wendy Guardado RN | Heather Vick | | IV | catheter system; 20 gauge; | | NIK Diaz | | | 12/14/19; 1111 | | | +--------+ + + + | Airway | Placement Date: 12/13/19; | 12/13/19 163 by | 12/13/19 173 by | | | Placement Time: 1633 (created via | Sylwia Rhodes MD | Sylwia Rhodes MD | | | procedure documentation); Mask | | | | | Ventilation: N/A; Airway Type: | | | | | laryngeal mask; Size: 4; Trauma: | | | | | none; Placement Check: exhaled | | | | | CO2 detection device, bilateral | | | | | chest rise, breath sounds equal | | | | | bilaterally; Removal Date: | | | | | 12/13/19; Removal Time: 1737 | | | +--------+ + + + [...] encounter OR Notes Anesthesia Postprocedure Evaluation - Sylwia Rhodes MD - 12/13/2019 5:46 PM PDTFormatti ng of this note might be different from the original. ANESTHESIA POSTANESTHESIA EVALUATION Fátima Paris 79 y.o. female 1940 [id number] Procedure(s) BIOPSY LYMPH NODE GENERAL (Right Axilla) EXCISION LESION HAND / FINGER, EXCISIONAL BIOPSY RIGHT INDEX FINGER RAY RESECTION (Right Fi nger Index) Cooperates? Yes Mental Status Performs simple tasks. Respiratory Satisfactory - Airway patent (self maintained). Cardiovascular Satisfactory - Blood pressure and heart rate acceptable Temperature Satisfactory Pain Satisfactory N/V Control Satisfactory Hydration Satisfactory - No signs of dehydration Adverse Events ADVERSE EVENTS: No adverse events Vitals Value Taken Time Temp 36.4 C (97.6 F) 12/13/19 1744 Pulse 76 12/13/19 1746 Resp 16 12/13/19 1744 BP 128/66 12/13/19 1746 Arterial Line BP Arterial Line BP 2 SpO2 100 % 12/13/19 1746 Vitals shown include unvalidated device data. Electronically signed by Sylwia Rhodes MD 12/13/2019 5:47 PM PDT [facility] nesthesia Procedure Notes - Sylwia Rhodes MD - 12/13/2019 4:45 PM PDTAssoc iated Order(s): AirwayAnesthesia Airway Placement 12/13/2019 4:34 PM Preprocedure check: patient identified, suction, airway equipment checked, patient reassess ment prior to induction, airway assessed and oxygen Rapid Sequence Induction: no Mask ventilation: N/A Airway type: laryngeal mask Size: 4 Cuffed: cuffed Route, reference point: right side of mouth Tube secured with: adhesive tape Trauma: none Tube placement verification: bilateral chest rise, equal bilateral breath sounds and carbon dioxide detection Performing provider: Sylwia Rhodes MD Authorizing provider: Sylwia Rhodes MD Please see intraoperative grid for any additional medication documentation. nesthesia Preprocedu re Evaluation - Sylwia Rhodes MD - 12/13/2019 2:43 PM PDTFormatting of this note might b e different from the original. ANESTHESIA PREANESTHESIA EVALUATION Fátima Paris 79 y.o. female 1940 [id number] Procedure(s): BIOPSY LYMPH NODE GENERAL (Right ) EXCISION LESION HAND / FINGER, EXCISIONAL BIOPSY RIGHT INDEX FINGER VERSUS RESECTION (Right ) Medical,anesthesia, drug, allergy histories reviewed, NPO status verified. ECG reviewed. (-) perioperative beta-matheus/statin not given/taken, reason: not applicable /Not taking Beta-Matheus. Review of Systems / Med History Anesthesia History (+) previous surgery or anesthesia. Family Anesthesia History Family Anesthesia Negative except where noted below. Cardiovascular EKG on 12/11 Sinus rhythm with Premature supraventricular complexes at 83bpm Nonspecific ST abnormality Abnormal ECG . Negative except where noted below. Exercise tolerance >4 METS. Pulmonary (+) tobacco use.(+) ex-smoker: 1995. Gastrointestinal/Hepatic (+) acid reflux: without esophagitis and well controlled. Renal Negative except where noted below. Endocrine Negative except where noted below. Hematology/Other Negative except where noted below. Cancer Malignant melanoma. Obstetrics per patient: no Neuromuscular (+) arthritis, back pain. Psychology Negative except where noted below. 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 A punch biopsy revealed it is a malignant melanoma with 5 mm in d epth, nonulcerated. She presents today for right index finger biopsy/resection and also ipsi lateral sentinel lymph node biopsy. 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 Neck: limited ROM, extends >30 degrees. Jaw prot rusion normal. Facial hair present: No CV Rhythm regular. Rate normal. (+) murmur. Pulm Clear to auscultation bilaterally. Neuro grossly normal. Other Pt reports heart murmur was worked up 15 yrs ago and she was told it was not a problem. Den ies cardiac sx. Anesthesia Plan ASA: 3 Type: General. Plan is GA with LMA vs ETT No labs indicated. METS>4. NPO>8hrs Induction: Intravenous. Potential problems: None anticipated. Monitors: Standard ASA monitors. Consent statement: Anesthetic plan, alternatives, risks and benefits discussed with patient. backache, , discussed risks to teeth, drug reaction, heart problems, ICU placement, muscle aches, nausea , pain, perioperative CV events, respiratory events, sore throat, stroke, voice injury, deli rium Consenting person understands and agrees to proceed. Electronically Signed by: Melisa Anderson CRNA ESisamuel date/time: 12/13/2019 2:43 PM PDT documented in this en counter Miscellaneous Notes Anesthesia Post-op Handoff - Sylwia Rhodes MD - 12/13/2019 5:46 PM PDTFormatting of thi s note might be different from the original. ANESTHESIA HANDOFF NOTE Fátima Paris 79 y.o. female 1940 [id number] BIOPSY LYMPH NODE GENERAL (Right Axilla) EXCISION LESION HAND / FINGER, EXCISIONAL BIOPSY RIGHT INDEX FINGER RAY RESECTION (Right Fi nger Index) HANDOFF NOTE Handoff Protocol Used: post-procedure handoff [...] receiving team Patient Location: Phase I Condition: awake and alert Airway/O2: face mask with O2 Multimodal analgesia: multimodal analgesia used between 6 hours prior to anesthesia start t o PACU discharge The significant anesthesia concerns and VS in Epic were reviewed with the receiving team. Sylwia Rhodes MD 12/13/2019 5:46 PM PDT [facility] documented in this encounter Plan of Treatment +--------+---------+ + + + | Date | Type | Specialty | Care Team | Description | +--------+---------+ + + + | 01/31/ | Office | General Surgery | Pepe Stone, | | 2019 | Visit | | [facility] [place] | | | | | | [address], | | | | | | [place] [address] | | | | | | [phone] | | | | | | | | +--------+---------+ + + + | 02/01/ | Office | Orthopedic Surgery | David Gomez, | | | 2019 | Visit | | [address] [facility] | | | | | | [place] [address] | | | | | | [phone] | | | | | | | | +--------+---------+ + + + documented as of this encounter Procedures + +--------+ + + + | Procedure Name | Priori | Date/Time | Associated Diagnosis | Comments | | | ty | | | | + +--------+ + + + | ANE AIRWAY NOTE | Routin | 12/13/2019 | | Results for this | | | e | 4:45 PM | | procedure are in the | | | | PDT | | results section. | + +--------+ + + + documented in this encounter Results Airway (12/13/2019 4:45 PM PDT) + + + | Narrative | Performed At | + + + | Sylwia Rhodes MD 12/13/2019 4:46 PM Anesthesia Airway | | | Placement 12/13/2019 4:34 PM Preprocedure check: patient | | | identified, suction, airway equipment checked, patient reassessment | | | prior to induction, airway assessed and oxygen Rapid Sequence | | | Induction: no Mask ventilation: N/A Airway type: laryngeal mask | | | Size: 4 Cuffed: cuffed Route, reference point: right side of mouth | | | Tube secured with: adhesive tape Trauma: none Tube placement | | | verification: bilateral chest rise, equal bilateral breath sounds | | | and carbon dioxide detection Performing provider: Sylwia Rhodes MD | | | Authorizing provider: Sylwia Rhodes MD Please see | | | intraoperative grid for any additional medication documentation. | | + + + documented in this encounter Visit Diagnoses Not on filedocumented in this encounter Administered Medications + +--------+ +------+------+------+ | Medication Order | MAR | Action | Dose | Rate | Site | | | Action | Date | | | | + +--------+ +------+------+------+ | ceFAZolin in dextrose (ANCEF) | Given | 12/13/19 | 2 g | | | | IVPB 2 g 2 g, Intravenous, | | 20 4:27 | | | | | Administer over 30 Minutes, Prior | | PM PDT | | | | | to Incision, Starting Tue | | | | | | | 12/13/19 at 1400, For 1 dose, Keep | | | | | | | in refrigerator., Pre-op, | | | | | | | Indications: Surgical Prophylaxis | | | | | | + +--------+ +------+------+------+ +---+---+ | | | +---+---+ + +-------+ +------+---+---+ | dexamethasone (DECADRON) 4 | Given | 12/13/19 | 4 mg | | | | mg/mL injection Intravenous, | | 20 4:44 | | | | | PRN, Starting 12/13/19 at | | PM PDT | | | | | 1644, Anesthesia Intra-op | | | | | | + +-------+ +------+---+---+ +---+---+ | | | +---+---+ + +-------+ +--------+---+---+ | fentaNYL (PF) injection | Given | 12/13/19 | 25 mcg | | | | Intravenous, PRN, Starting Tue | | 20 5:47 | | | | | 12/13/19 at 1632, Anesthesia | | PM PDT | | | | | Intra-op | | | | | | + +-------+ +--------+---+---+ +-------+ +--------+---+---+ | Given | 12/13/19 | 50 mcg | | | | | 20 5:09 | | | | | | PM PDT | | | | +-------+ +--------+---+---+ | Given | 12/13/19 | 50 mcg | | | | | 20 4:52 | | | | | | PM PDT | | | | +-------+ +--------+---+---+ +---+---+ | | | +---+---+ + +-------+ +------+---+---+ | labetalol (TRANDATE) 5 mg/mL | Given | 12/13/19 | 5 mg | | | | injection Intravenous, PRN, | | 20 5:38 | | | | | Starting 12/13/19 at 1710, | | PM PDT | | | | | Anesthesia Intra-op | | | | | | + +-------+ +------+---+---+ +-------+ +------+---+---+ | Given | 12/13/19 | 5 mg | | | | | 20 5:10 | | | | | | PM PDT | | | | +-------+ +------+---+---+ +---+---+ | | | +---+---+ + +-------+ +-------+---+---+ | lidocaine (PF) 2% injection | Given | 12/13/19 | 60 mg | | | | Intravenous, PRN, Starting Tue | | 20 4:32 | | | | | 12/13/19 at 1632, Anesthesia | | PM PDT | | | | | Intra-op | | | | | | + +-------+ +-------+---+---+ +---+---+ | | | +---+---+ + +-------+ +------+---+---+ | ondansetron (ZOFRAN) injection | Given | 12/13/19 | 4 mg | | | | Intravenous, PRN, Starting Tue | | 20 5:27 | | | | | 12/13/19 at 1727, Anesthesia | | PM PDT | | | | | Intra-op | | | | | | + +-------+ +------+---+---+ +---+---+ | | | +---+---+ + +-------+ +--------+---+---+ | phenylephrine (AMIRA-SYNEPHRINE, | Given | 12/13/19 | 50 mcg | | | | VAZCULEP) 10 mg per mL injection | | 20 5:25 | | | | | Intravenous, PRN, Starting Tue | | PM PDT | | | | | 12/13/19 at 1636, Anesthesia | | | | | | | Intra-op | | | | | | + +-------+ +--------+---+---+ +-------+ +--------+---+---+ | Given | 12/13/19 | 50 mcg | | | | | 20 4:46 | | | | | | PM PDT | | | | +-------+ +--------+---+---+ | Given | 12/13/19 | 50 mcg | | | | | 20 4:36 | | | | | | PM PDT | | | | +-------+ +--------+---+---+ +---+---+ | | | +---+---+ + + + +---------+-------+---+ | phenylephrine (AMIRA-SYNEPHRINE, | Rate/Dos | 12/13/19 | 15 | 0.1 | | | VAZCULEP) 10 mg/mL injection | e Change | 20 5:25 | mcg/min | mL/hr | | | Intravenous, CONTINUOUS PRN, | | PM PDT | | | | | Starting 12/13/19 at 1636, | | | | | | | Anesthesia Intra-op | | | | | | + + + +---------+-------+---+ + + +---------+-------+---+ | Rate/Dose Change | 12/13/19 | 15 | 0.1 | | | | 20 5:07 | mcg/min | mL/hr | | | | PM PDT | | | | + + +---------+-------+---+ | Rate/Dose Change | 12/13/19 | 30 | 0.2 | | | | 20 4:57 | mcg/min | mL/hr | | | | PM PDT | | | | + + +---------+-------+---+ +---+---+ | | | +---+---+ + +-------+ +-------+---+---+ | propofol (DIPRIVAN) injection | Given | 12/13/19 | 50 mg | | | | Intravenous, PRN, Starting Tue | | 20 5:09 | | | | | 12/13/19 at 1632, Anesthesia | | PM PDT | | | | | Intra-op | | | | | | + +-------+ +-------+---+---+ +-------+ +--------+---+---+ | Given | 12/13/19 | 100 mg | | | | | 20 4:32 | | | | | | PM PDT | | | | +-------+ +--------+---+---+ +---+---+ | | | +---+---+ documented in this encounter
--- OUTSIDE RECORDS SUMMARY | ~2020-01-31 | XMS | Encounter Summary ---
Demographics + + + | Address | [address] | | | [place] [address] | + + + | Home Phone | | + + + | Preferred Language | Unknown | + + + | Marital Status | | + + + | Shinto Affiliation | [id number] | + + + [...] [place] | | | | | [address] | | + + + + + | Todd Paris | ECON | Unknown | | + + + + + Care Team Providers + +------+ + | Care Processing Associate Name | Role | Phone | + [...] + + + + | 01/09/ | Hospital | [facility] | ChasePepe yung, | Malignant melanoma | | 2020 | Encounter | [facility] | MD [address] | of finger of right | | | | OPER[address] RO[address] | [address] [place], | hand (HCC) | | | | [address] | [place] [address] | | | | | [place], [place] | [phone] | | | | | [address] | | | | | | [phone] | | | +--------+ + + + [...] + + + | Blood Pressure | 164/73 | 01/10/2020 4:15 PM | | | | | PDT | | + + + + + | Pulse | 97 | 01/10/2020 4:15 PM | | | | | PDT | | + + + + + | Temperature | 36.4 C (97.5 F) | 01/10/2020 1:36 PM | | | | | PDT | | + + + + + | Respiratory Rate | 28 | 01/10/2020 2:35 PM | | | | | PDT | | + + + + + | Oxygen Saturation | 94% | 01/10/2020 4:15 PM | | | | | PDT [...] done under general anesthesia. The surgeon selvin akes a small incision and removes either the [...] [facility] Possible Complications As with any surgical procedure, [...] Diet ? Start with liquids and light, cmrv-zg-rxatul foods. As you feel up to it, [...] your follow-up appointment with Dr. Stone, yoanna n olga. Pain Relief ? Pain can be expected [...] a laxative, such as Milk of Magnesia, rxge-bbx-yxgvabm an d use as directed to resolve [...] the amount of drainage (over 30 mL) [employer] last reviewed this educational content on 01/18/201919992290-2449 The [employer]. [address] [place] [address], [place] [address]. All righ ts reserved. This information is [...] information carefully each time. Talk to your preventive medicine officer regarding the use of this medicine in children. Special care may be needed. What side effects may I notice from receiving this medicine? Side effects that you should report to your doctor or health primary care physician as soon as p ossible: allergic reactions [...] attention (report to your doctor or health primary care physician if they continue or are bothersome): constipation [...] to an official disposal site. Contact the [facility] at [phone] or your [facility] government to find a site. If you [...] this medicine? Tell your doctor or health primary care physician if your pain does not go away, [...] pharmacist, or health care provider. Copyright 2020 [employer] Local Drug Take Back Locations, Pain Management [...] disposal of unused medications, please visit: http://www.takebackyourmeds.org/, https://apps.deadiversion.appCREARoLucid Colloids.gov/pubdispsea [facility]/spring/main?execution=e1s3 ? Activities of daily living (ADL) are routine activities people do every day without lucien tance. Non-pharmacological interventions can be useful and incorporated to help with activit ies of daily living. These include, but are not limited to: Repositioning, cold/warm malka ses, massage, decreasing environmental stimulation (decrease lighting, decrease noise), musi c, aromatherapy. JANUARY 2018 | [facility] Pub [phone] Location Address Phone # Take Back Hours Accepts Does NOT Accept [facility] [address] [place] [address] [phone] Lobby hours: M-F: 8am-5pm Sat-Sun: See their Facebook page for dates (every few weeks) - Pills: tablets, capsules (in cluding controlled substances) - Liquids - Topical lotions, gels, creams, ointments - Sharps, syringes (including insulin) - Inhalers [facility] [address] [place], [place] [address] [phone] Lobby hours: M-F: 8am-12pm, 1pm-5pm (closed 12-1pm) Sat-Sun: CLOSED - Pills: tablets, capsules (including controlled substances) - Liquids - Topical lotions, gels, creams, ointments - Sharps, syringes (including insulin) - Inhalers [facility] [address] [place] [address] [phone] Lobby hours: M-F: 8:30am-4:30pm Sat-Sun: CLOSED - Pills: tablets, capsules (including controlled substances) - Patches - Liquids - Topical lotions, gels, creams, ointments - Sharps, syringes (including insulin) - Inhalers [facility] [address] [place], [place] [id number] [phone] Lobby hours: M-F: 8am-5pm Sat-Sun: CLOSED - Pills: tablets, capsules (including controlled substances) - Liquids - Topical lotions, gels, creams, ointments - Sharps, syringes (including insulin) - Inhalers [employer] (store #[id number]) [address] [place] [address] [phone] Pharmacy hours: M-F: 9am-9pm Sat: 8am-9pm Sun: 9am-9pm - Pills: tablets, capsules (including controlled substances) - Liquids - Topical lotions, gels, creams, ointments - Sharps, syringes (including insulin) - Inhalers [employer] (local branch of [employer] [address] [place] [address] [phone] Call to schedule picker tender helper; only for current residential customers - Sharps, [...] 0 | | | | (VITAMIN D-3) 1999 | Daily. | | | | 0 [...] | | | | 0 | | ([facility] | | | | | | [...] NODE GENERAL; Surgeon: Pepe Stone MD; Location: [facility] O R OTHER SURGICAL HISTORY Right 12/13/2019 Procedure: EXCISION LESION HAND / FINGER, EXCISIONAL BIOPSY RIGHT INDEX FINGER RAY RESECTI ON; Surgeon: David Gomze MD; Location: [facility] MA[facility] OR Allergies Allergen Reactions Pepcid [Famotidine] [...] file Gets together: Not on file Attends quaker service: Not on file Active member of [...] dissection I think is warranted. 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 The wound was then closed proper using 3-0 Vicryl sutu re and 4-0 Monocryl suture with Steri-Strips and dressings applied. Condition: stable Pepe Stone MD 01/10/2020 1:28 PM PDT nterval H&P Note (u nlinked) - Pepe Stone MD - [facility]10/2020 12:[facility] PM [facility] Surgery Pre-Operative History & Physical [...] [place], | | | | | | [place] [address] | | | | | | [phone] | | | | | | | | +--------+---------+ + + + | 02/01/ | Office | Orthopedic Surgery | David Gomez, | | | 2019 | Visit | | [address] | | | | | | [place] [address] | | | | | | [phone] | | | | | | | [...] | | | Needs | | | COMMUNICATION ARTS LECTURER | | | reques | | | [...] Negative results, using the | | | Tripl ID NOW Platform, should be treated as [...] yellow to brown-mckeon and hemorrhagic cut surface. Food Service Counter Clerk | | | sections are submitted as [...] | LABORATORY:The technical component was performed by [facility] | | | [facility], [address] [place] [address] (Data Processing Clerk: | | | Grace Godinez MD; CLIA# [id number]).Professional interpretation was | | | performed by [facility] [address] | | | [place] [address] (Data Processing Clerk: Donnie | | | Clay Arteaga; CLIA#: [id number]). Diagnostician: Grace Godinez | | | MDPathologistElectronically Signed 01/16/2020 | | |Professional interpretation was performed by [facility] [place] [address] (Data Processing Clerk: Donnie Arteaga M.D.; IA#: [id number]). | | | | | |Diagnostician: Grace [...] PDT | | | | +---------+ +---+---+---+ + +---+ | | | + +---+ [...] | | | | | | longer, iqbory-nfq-ddfqf use of | | | | | [...] | | | | | Pain, Starting 01/10/20 at | | | | | | [...] | | | | | | | vwexli-vpk-ptyih use of at least | | | [...] | | | | | | | Alva if ordered., | | | | | [...]
--- OUTSIDE RECORDS SUMMARY | ~2020-01-31 | XMS | Encounter Summary ---
Demographics + + + | Address | [address] | | | [place] [address] | + + + | Home Phone [...] [place] | | | | | [address] | | + + + + + | Todd Paris | ECON | Unknown | | + + + + + Care Team Providers + +------+ + | Care Management Engineer Name | Role | Phone | + +------+ + | Lamont Santoyo MD | PCP | | + +------+ + Reason for Visit +---------+ + | Reason | Comments | +---------+ + | Post Op | Pt is here today for a post op after sx on 12/12 melanoma excision | | | and a SNB. pt denies pain fever chills nausea and vomiting, pt | | | states she has developed an abscess and a small lump near her | | | incision site. | +---------+ + Encounter Details +--------+---------+ + + + | Date | Type | Department | Care Team | Description | +--------+---------+ + + + | 12/27/ | Office | [facility] | Pepe Stone, | Malignant melanoma | | 2020 | Visit | GENERAL SURGERY [address] | [address] | of finger of right | | | | [address] | [address] [place], | hand (HCC) (Primary | | | | [place], [place] | [place] [address] | Dx) | | | | [address] | [phone] | | | | | [phone] | | | +--------+---------+ + + + [...] + + + | Blood Pressure | 143/73 | 12/28/2019 3:18 PM | | | | | PDT | | + + + + + | Pulse | 90 | 12/28/2019 3:18 PM | | | | | PDT | | + + + + + | Temperature | 36.5 C (97.7 F) | 12/28/2019 3:18 PM | | | | | PDT | | + + + + + | Respiratory Rate | - | - | | + + + + + | Oxygen Saturation | 97% | 12/28/2019 3:18 PM | | | | | PDT [...] encounter H&P Notes Pepe Stone MD - 12/28/2019 3:15 PM PDTFormatting of this note might be [...] Comments) Per pt makes her feel odd Active Problems: * No active hospital problems. * Blood pressure 143/73, pulse 90, temperature 36.5 C (97.7 F), SpO2 97 %, not currently . Past Medical History: Diagnosis [...] NODE GENERAL; Surgeon: Pepe Stone MD; Location: [facility] O R OTHER SURGICAL HISTORY Right 12/13/2019 Procedure: EXCISION LESION HAND / FINGER, EXCISIONAL BIOPSY RIGHT INDEX FINGER RAY RESECTI ON; Surgeon: David Gomez MD; Location: [facility]IN OR Allergies Allergen Reactions Pepcid [Famotidine] Anaphylaxis Cardiac arrest Demerol [Meperidine] Other (See Comments) Per pt makes her feel odd Current Outpatient Medications on File Prior to [...] Take 1 tablet by mouth D aily. No current facility-administered medications on file prior [...] file Gets together: Not on file Attends alevism service: Not on file Active member of [...] dissection I think is warranted. Follow-up with [facility] oncology after that would be appropriate informed consent is granted we will schedule appropriately Pepe Stone MD 12/28/2019 documented i n this encounter Plan of Treatment +--------+---------+ + + + | Date | Type | Specialty | Care Team | Description | +--------+---------+ + + + | 01/31/ | Office | General Surgery | Pepe Stone, | | 2019 | Visit | | [address] | | | | | | [address] [place], | | | | | | [place] [address] | | | | | | [phone] | | | | | | | | +--------+---------+ + + + | 02/01/ | Office | Orthopedic Surgery | David Gomez, | | | 2020 | Visit | | [address] | | | | | | [place] [address] | | | | | | [phone] | | | | | | | | +--------+---------+ + + + documented as of this encounter Visit Diagnoses + + | Diagnosis | + + | 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
--- OUTSIDE RECORDS SUMMARY | ~2020-01-31 | XMS | Encounter Summary ---
Demographics + + + | Address | [address] | | | [place] [address] | + + + | Home Phone | | + + + | Preferred Language | Unknown | + + + | Marital Status | | + + + | Uatsdin Affiliation | 1077 | + + + | Race | White | + + + | Ethnic Group | Not or | + + + Author + + + | Author | [facility] | | | and [place] | + + + | Organization | [facility] | | | [...] [place] | | | | | [address] | | + + + + + | Todd Guzman | ECON | Unknown | | + + + + + Care Team Providers + +------+ + | Care Binder And Wrapper Packer Name | Role | Phone | + [...] | | right hand | | [place] [address] | | | | | (HCC) | | Phone: | | | | | Procedures | | [phone] | | | | | [place] [facility] | | Fax: | | | | | MICHELLE/VAS MAL | | [phone] | | | | | SFT TIS [...] + + | 12/12/ | Hospital | [facility] | Pepe Stone, | Malignant melanoma | | 2020 - | Encounter | [facility] | [address] | of finger of right | | | | CARE FLOOR 3 [address] | [address], | hand (HCC); | | 12/13/ | | [address] | [place] [address] | Malignant melanoma | | 2019 | | [place], [place] | [phone] | of finger of right | | | | [address] | | hand (HCC) | | | | [phone] | David Gomez MD | | | | | | [address] [facility] | | | | | | [place] [address] | | | | | | [phone] | | | | | | | [...] + + + | Blood Pressure | 139/64 | 12/14/2019 8:27 AM | | | | | PDT | | + + + + + | Pulse | 72 | 12/14/2019 8:27 AM | | | | | PDT | | + + + + + | Temperature | 36.8 C (98.2 F) | 12/14/2019 8:27 AM | | | | | PDT | | + + + + + | Respiratory Rate | 16 | 12/14/2019 8:27 AM | | | | | PDT | | + + + + + | Oxygen Saturation | 95% | 12/14/2019 8:27 AM | | | | | PDT [...] David Gomez MD - 12/14/2019 8:27 AM [facility] Same Day Surgery: Brief Post Op Discharge Note Post Procedure Discharge Note; See Operative Note for details Fátima Guzman Age/Gender 79 y.o. female Location [facility] ACUTE CARE FLOOR 3 Attending David [...] this en counter Discharge Instructions Instructions Karyna Juarez RN - 12/14/2019Formatting of this note might [...] pain or shortness of breath please call 12-19. If you need the doctor after hours or on the weekends, please refer to the phone number bel ow. For [facility] offices located on [address] [facility] and on [address] [place] [address] please call . This will take you to an answering service, who will then get you in contact with a medical professional. Acetaminophen; Hydrocodone tablets or capsules Brand Names: Anexsia, Lorcet, Lorcet HD, Lorcet Plus, Lortab, [place], Verdrocet, Vicodin, Vi codin ES, Vicodin HP, [...] information carefully each time. Talk to your film developing machine operator regarding the use of this medicine in children. Special care may be needed. What side effects may I notice from receiving this medicine? Side effects that you should report to your doctor or health childcare aide as soon as p ossible: allergic reactions [...] attention (report to your doctor or health childcare aide if they continue or are bothersome): constipation [...] to an official disposal site. Contact the [facility] at [phone] or your [facility] to find a site. If you [...] this medicine? Tell your doctor or health childcare aide if your pain does not go away, [...] pharmacist, or health care provider. Copyright 2020 [employer] [facility] Take Back Locations, Pain Management [...] drugs that include pain relievers available [facility] by prescription. Opioid pain relievers can be [...] disposal of unused medications, please visit: http://www.takebackyourmeds.org/, https://apps.deadiversion.[place].gov/pubdispsea [facility]/spring/main?execution=e1s3 ? Activities of daily living (ADL) are routine activities people do every day without lucien tance. Non-pharmacological interventions can be useful and incorporated to help with activit ies of daily living. These include, but are not limited to: Repositioning, cold/warm malka ses, massage, decreasing environmental stimulation (decrease lighting, decrease noise), musi c, aromatherapy. JANUARY 2018 | [facility] [phone] Location Address Phone # Take Back Hours Accepts Does NOT Accept [employer] [employer] [address] [place] [address] [phone] Lobby hours: M-F: 8am-5pm Sat-Sun: See their Facebook page for dates (every few weeks) - Pills: tablets, capsules (in cluding controlled substances) - Liquids - Topical lotions, gels, creams, ointments - Sharps, syringes (including insulin) - Inhalers [place] [employer] [address] [place] [address] [phone] Lobby hours: M-F: 8am-12pm, 1pm-5pm (closed 12-1pm) Sat-Sun: CLOSED - Pills: tablets, capsules (including controlled substances) - Liquids - Topical lotions, gels, creams, ointments - Sharps, syringes (including insulin) - Inhalers [place] [employer] [address] [place] [address] [phone] Lobby hours: M-F: 8:30am-4:30pm Sat-Sun: CLOSED - Pills: tablets, capsules (including controlled substances) - Patches - Liquids - Topical lotions, gels, creams, ointments - Sharps, syringes (including insulin) - Inhalers [place] [employer] [address] [place], [place] [address] [phone] Lobby hours: M-F: 8am-5pm Sat-Sun: CLOSED - Pills: tablets, capsules (including controlled substances) - Liquids - Topical lotions, gels, creams, ointments - Sharps, syringes (including insulin) - Inhalers [id number] [address] [place] [address] [phone] Pharmacy hours: M-F: 9am-9pm Sat: 8am-9pm Sun: 9am-9pm - Pills: tablets, capsules (including controlled substances) - Liquids - Topical lotions, gels, creams, ointments - Sharps, syringes (including insulin) - Inhalers [employer] (local branch of [employer] [address] [facility] [place] [address] [phone] Call to schedule pecan picker; only for current residential customers - Sharps, syringes (MUST be inside sharps container) - Drugs: including oral, topical, injectable, inhalers Last updated 07/2019 What is Coronavirus? The Novel Coronavirus 2019 (COVID-19) is a new virus strain that is spread mainly from pers nq-jc-hgxizq through respiratory droplets when an infected person [...] are not available, use an alcohol-based hand electronic warfare specialist with at least 60 % alcohol covering [...] and need to call 911, notify the corner brace block machine operator that you have or think you [...] COVID-19 symptoms, residents in nursing facilities or snf communities or home health, or those who are high risk (older adults, chronic diseases, immunosuppressed) s beluld be prioritized for testing. These recommendations may [...] or preparing your food. ? Use hand electronic warfare specialist if soap and water are not available. [...] with soap and water or in the brain picker/washer. ? Call ahead before visiting your doctor. [...] local public health website. CDC: COVID-19: https://www.cdc.gov/coronavirus/2019-ncov/index.html [place] Coronavirus Advisory: https://www.providence.org/slprsjti-apj-brrtusap/coron avirus-advisory Virtual Visits Available https://virtual.providence.org/ documented in this encounter Medications at Time [...] | | | | 0 | | ([facility] | | | | | | [...] Signed Encounter Date: 12/09/2019 []Hide copied text []Maximilian for details Fátima Guzman is an 79 [...] physician was very concerned about it a [facility] biopsy was done after referral to dermatology [...] capsule Take 1,000 mg by mouth Daily. Eeinhueetjb-Auzbllquk-Yls C-Mn (GLUCOSAMINE CHONDR 1500 COMPLX) CAPS Take [...] file Gets together: Not on file Attends orthodox service: Not on file Active member of [...] is granted scheduling is been performed and lenin pathak take care of all the details with the patient in terms of setting this up. Pepe Stone MD 12/09/2019 1137 Office Visit on 12/09/2019 Routing History Detailed Report Note shared with patient documented in this e ncounter Miscellaneous Notes Plan of [place] - Karyna Juarez RN - 12/14/2019 11:27 AM PDTPt stable [...] private vehicle wit h . lan of [place] - Shawanda Hansen RN - 12/14/2019 3:20 AM PDT Problem: [...] being titrated up on pain medication per JUN. p Note - David Gomez MD - 12/13/2019 5:45 PM PDTC [facility] Pt. Name/Age/: Fátima Guzman 79 y.o. 1940 Med. Record Number: [id number] Date of admission: 12/13/2019 Date of Operation/Procedure: 12/13/2019 Pre-operative Diagnosis: Right index finger melanoma Post-operative Diagnosis: same Procedure(s): Right index finger ray resection, CPT 88265 Surgeon: David Gomez MD Excavating Contractor(s): None Anesthesia: General LMA anesthesia Estimated Blood [...] was released. The patient was taken to [facility] recovery room in stable condition. All counts correct. Condition: stable ri ef Op Note - David Gomez MD - 12/13/2019 5:44 PM PDT BRIEF OPERATIVE NOTE [facility] Pt. Name/Age/: Fátima Guzman 79 y.o. 1940 [facility]. Record Number: [id number] Date of admission: 12/13/2019 Date of Operation/Procedure: 12/13/2019 Pre-operative Diagnosis: Right index finger melanoma Post-operative Diagnosis: same Procedure(s): Right index finger ray resection, CPT 61829 Surgeon: David Gomez MD Excavating Contractor(s): None Anesthesia: General LMA anesthesia Estimated Blood Loss: Minimal Other: Specimens: Right index finger Indications: See pre-operative history and physical Findings: As above Complications: None Description of Procedure: See operative note Condition: stable Electronically signed by: David Gomez MD, 12/13/2019, 5:44 PM PDTElectronically donny d by David Gomez MD at 12/13/2019 5:45 PM PDTOp Note - Pepe Stone MD - 0 5:08 PM [facility]ocated [facility] Service: [facility] Operative Note Pre-operative Diagnosis: Malignant melanoma index finger right hand Post-operative Diagnosis: same Procedure(s): Right axillary sentinel lymph node mapping and biopsy Surgeon: Pepe Stone MD Excavating Contractor(s): Anesthesia: General endotracheal anesthesia Estimated Blood Loss: [...] [place] | | | | | | [place] [address] | | | | | | [phone] | | | | | | | | +--------+---------+ + + + | 02/01/ | Office | Orthopedic Surgery | David Gomez, | | 2019 | Visit | | [address] | | | | | | [place] [address] | | | | | | [phone] | | | | | | | [...] (includes | | | information from case [id number]).- Number of sentinel lymph nodes | | | examined: 3. - Total number of lymph nodes examined: 3.- | | | Number of lymph nodes with metastasis: 1.- Pathologic stage | | | classification: pT3a N1a. COMMENT:This case received consultation by | | | a dermatopathologist. BRP:[facility]:C1NR MICROSCOPIC EXAMINATION:Histologic | | | sections of [...] submitted for histologic examination. | | | Mixing Machine Operator sections are submitted in four cassettes. Cassette [...] component was | | | performed by [facility], [address] [place] [address] | | | (Supervisor Ship Maintenance Services: Grace Godinez MD; CLIA# [id number]).Professional | | | [facility] | | [address] [address] (Medical | | | Director: Donnie Arteaga M.D.; CLIA#: [id number]). ADDITIONAL | | | NOTES:The FDA-approved leon(r) 4800 BRAF V600 Mutation Test is an in | | | vitro diagnostic device (IVD) real-time PCR assay designed for the | | | qualitative detection of the V600E ([id number]) mutation in | | | melanomatissue. The [...] | | mutation test were performed at [facility], [facility] [address] | | | [address] [place] [address] (Supervisor Ship Maintenance Services: Harsha Nettles MD; | | | [facility]#[id number]). REASON FOR ADDENDUM:This case is addended for the | | | addition of BRAF Mutation Analysis results. ADDENDUM PATHOLOGIC | | | DIAGNOSIS:[id number], [id number], FORE/INDEX, RT: BRAF V600 Mutation | | [...] melanoma | | | (Zelboraf(r) (vemurafenib) [packageinsert]. [employer] [facility] | | | [place], [place]; 2016) This assay is not intended to diagnose any | | | particular type of cancer, but as an aid to clinicians, is intended to | | | be used as an adjunct to otherpredictive factors to select eligible | | | patients for therapy.ADDENDUM CLINICAL HISTORY: Client Request: BRAF | | | Mutation Analysis requested by Dr. Chas Baird, [facility] | | | protocol. ADDENDUM MICROSCOPIC EXAMINATION:An [...] | | paraffin tissue block A3, numbered [id number], belonging to patient | | | FÁTIMA GUZMAN. Diagnostician: Chas Baird | | | MDPathologistDiagnostician: Gisel Robertson | | | MDPathologistElectronically Signed 12/29/2019 | | |predictive factors to select eligible patients for therapy. | | |ADDENDUM CLINICAL HISTORY: | | | | | |Client Request: BRAF Mutation Analysis requested by Dr. Chas Baird, [facility]. | | | | | |ADDENDUM [...] from paraffin tissue block A3, numbered [id number], belonging to patient FÁTIMA GUZMAN. | | [...] +---+ +---+---+ | | | +---+---+ + +---------+ [...] | | | | | | | Thu12/14/19 at 0230, For 2 doses, | | [...] DAILY, First dose | | | on Thu12/14/19 at 0900 | | + +---+ | [...] | | | | | | longer, dmwhxx-udb-odilh use of | | | | | [...] 6:16 | | | | | Starting Thu12/13/19 at 1743, For | | PM PDT | | | | | 1 dose, If able to take oral | | | | | | | medication., Recovery/Phase I | | | | | | + +-------+ +------+---+---+ +---+---+ | | | +---+---+ documented in this encounter
--- OUTSIDE RECORDS SUMMARY | ~2020-01-31 | XMS | Encounter Summary ---
Demographics + + + | Address | [address] | | | [place] [address] | + + + | Home Phone | | + + + | Preferred Language | Unknown | + + + | Marital Status | | + + + | Evangelical Affiliation | 1077 | + + + | Race | White | + + + | Ethnic Group | Not or | + + + Author + + + | Author | [facility] | | | and [place] | + + + | Organization | [facility] | | [...] [place] | | | | | [address] | | + + + + + | Todd Paris | ECON | Unknown | | + + + + + Care Team Providers + +------+ + | Care Charter Boat Operator Name | Role | Phone | + +------+ + | Lamont Santoyo MD | PCP | | + +------+ + Encounter Details +--------+ + + + + | Date | Type | Department | Care Team | Description | +--------+ + + + + | 12/11/ | Hospital | [facility] | Pepe Stone, | Preop testing | | 2020 | [facility] | MD [address] | | | | | [employer] | [address] [facility] | | | | | [address] | [place] [address] | | | | | [place], [place] | [phone] | | | | | [address] | | | | | | [phone] | | | +--------+ + + + [...] | | | | 0 | | ([facility] | | | | | | | [...] | | | | | [address] [place], | | | | | | [place] [address] | | | | | | [phone] | | | | | | | | +--------+---------+ + + + | 02/01/ | Office | Orthopedic Surgery | David Gomez, | | | 2019 | Visit | | [address] | | | | | | [place] [address] | | | | | | [phone] | | | | | | | | +--------+---------+ + + + documented as of this encounter Procedures + +--------+ + + + | Procedure Name | Priori | Date/Time | Associated Diagnosis | Comments | | | ty | | | | + +--------+ + + + | ECG 12 LEAD | Routin | 12/12/2019 | Preop testing | Results for this | | | e | 12:45 PM | | procedure are in the | | | | PDT | | results section. | + +--------+ + + + documented in this encounter Results ECG 12 lead (12/12/2019 12:45 PM PDT) + + + + + + | Component | Value | Ref Range | Performed | Pathologist | | | | | At | Signature | + + + + + + | VENTRICULAR | 83 | BPM | [facility] [...] Diagnosis | + + | Preop testing Preoperative examination, unspecified | + + documented in this encounter
--- OUTSIDE RECORDS SUMMARY | ~2020-01-31 | XMS | Encounter Summary ---
Demographics + + + | Address | [address] | | | [place] [address] | + + + | Home Phone | | + + + | Preferred Language | Unknown | + + + | Marital Status | Unknown | + + + | Quaker Affiliation | Unknown | + + + | Race | Unknown | + + + | Ethnic Group | Unknown | + + + Author + + + | Author | [facility] | + + + | Organization | [facility] | + + + | Address | Unknown | + + + | Phone | Unavailable | + + + Care Team Providers + +------+ + | Care Recruiting Manager Name | Role | Phone | + +------+ + PCP | Unavailable | + +------+ + Encounter Details +--------+--------+ + + + | Date | Type | Department | Care Team | Description | +--------+--------+ + + + | 01/13/ | Intake | Transfer Center | | | | 2020 | | [address] | | | | | | [place], | | | | | | [place] [address] | | | +--------+--------+ + + + Social History + +-------+ [...]
--- OUTSIDE RECORDS SUMMARY | ~2020-01-31 | XMS | Encounter Summary ---
Demographics + + + | Address | [address] | | | [place] [address] | + + + | Home Phone | | + + + | Preferred Language | Unknown | + + + | Marital Status | Unknown | + + + | Congregational Affiliation | Unknown | + + + | Race | Unknown | + + + | Ethnic Group | Unknown | + + + Author + + + | Author | [facility] | + + + | Organization | [facility] | + + + | Address | Unknown | + + + | Phone | Unavailable | + + + Care Team Providers + +------+ + | Care Bed Laborer Name | Role | Phone | + +------+ + PCP | Unavailable | + +------+ + Encounter Details +--------+ + + + + | Date | Type | Department | Care Team | Description | +--------+ + + + + | 01/17/ | Pharmacy | Pharmacy @ | | | | 2020 | Visit | [facility] | | | | | | [place] [address] | | | | | | [address] [facility] [address] | | | | | | [place] [address] | | | +--------+ + + + [...]
--- OUTSIDE RECORDS SUMMARY | ~2020-01-31 | XMS | Encounter Summary ---
Demographics + + + | Address | [address] | | | [place] [address] | + + + | Home Phone | | + + + | Preferred Language | Unknown | + + + | Marital Status | | + + + | Alevism Affiliation | 1077 | + + + | Race | White | + + + | Ethnic Group | Not or | + + + Author + + + | Author | [facility] | | | and [place] | + + + | Organization | [facility] | | | [...] [place] | | | | | [address] | | + + + + + | Todd Paris | ECON | Unknown | | + + + + + Care Team Providers + +------+ + | Care Field Artillery Radar Operator Name | Role | Phone | + +------+ + | Lamont Santoyo MD | PCP | | + +------+ + Reason for Visit +---------+--------+ + | Reason | Onset | Comments | | | Date | | +---------+--------+ + | Post Op | 01/10/ | | | | 2019 | | +---------+--------+ + Encounter Details +--------+ + + + + | Date | Type | Department | Care Team | Description | +--------+ + + + + | 01/10/ | Telephone | [facility] | Pepe Stone, | Post Op | | 2019 | | GENERAL SURGERY [address] | MD [address] | | | | | [address] | [address] [place], | | | | | [place], [place] | [place] [address] | | | | | [address] | [phone] | | | | | [phone] | | | +--------+ + + + [...] Telephone Encounter - Nirali Valdovinos RN - 01/13/2020 2:21 PM Alfonso verified two pat ient identifiers. Returned call to patient in regards to drain concerns. Patient states the drain is not holding compression today and is now leaking. Patient state s she was able to compress the grenade but it is still leaking. Patient states she changed t he dressing this morning and has not had to change dressing this afternoon. Advised to tape the drain down so it does not get moved during resting. Advised to change t he dressing as needed for leakage. Advised to contact clinic if she is noticing a persistent leak from the drain area. Fátima verbalized understanding and agreed with plan. elephone Encounter - Francisca Pettit - 01/13/2020 12:03 PM PDTRenettaaroellie, is calling again for Post Op and would like a call back. Additional Call Details: Needs a call back in regards to patients drain not in place and s he is unable to have it in at all, wants to know how important it is to have the drain in, i f this is a big issue and/or what should she do. Can be reached at Home Number listed in Xin rt. elephone Encounter - Nirali Valdovinos RN - 01/12/2020 11:57 AM PDTSharoellie verified two patient identifiers. Daya nt calling with concerns with her drain. Patient states the drain will not stay compressed. Patient states when she compresses the b ulb it will not stay compressed. She states in a matter of seconds the bulb uncompressed. Patient denies bloating, swelling, or increased pain. Patient scheduled with Dr. Stone at 1530 today. Fátima verbalized understanding and agreed with plan. elephone Encounter - BrodyJoelle I - 01/12/2020 11:52 AM PDTFátima, is calling again for Post Op and would like a call back. Additional Call Details: States she is having issues with her tubes. (Call dropped) Please call back on home number listed. elephone Encounter - Nita Mascorro, Distillery Miller - 01/11/2020 11:10 AM PDTI called the patient and let her know I received her message. I stated I can reschedule her appointment for next Thursday. She stated she was told by Dr Stone to come in clinic or Thursday and have the drain removed. I let her know I spoke with Dr Stone and he stated removing the drain tomorrow or Thursday is too soon after surgery. If the drain is removed to soon is can cause complication s with fluid build up and she will have to come in weekly to have the fluid drained. Patient was not happy with being seen next Thursday but she was scheduled for 11:45. I reminded he r to strip and log the drain output daily and bring that information in with her next . She understood and stated she was given her instructions at the hospital. She asked if she is able to change the dressing near the drain since it was soaked yesterday and I let he r know that is fine to do. Fátima understood and thanked me for the call. Electronically sig scot by Nita Isaac Distillery Miller at 01/11/2020 11:19 AM PDTTelephone Encounter - Michell Rodriguez - 01/11/2020 9:00 AM PDTForwarding to clinical staff to determine if patrick ent will need sooner appt for drain removal. Patient already scheduled for post op on 01/31 with Chase. elephone Encounter - Kenya Guzmán - 01/11/2020 8:42 AM PDTSharoellie, is calling regarding Post Op and would like a call back. Additional Call Details: Calling to schedule to have her drain tube removed 01/12/20 or 12/20 09/06. Please call Fátima back. If this is a symptom based call, was patient offered triage? Not Applicable If this is a symptom based call and you were unable to immediately transfer the call to a marlena tamez director of anesthesia services was caller made aware that if at [...] | | | | | [address] [place], | | | | | | [place] [address] | | | | | | [phone] | | | | | | | | +--------+---------+ + + + | 02/01/ | Office | Orthopedic Surgery | David Gomez, | | | 2019 | Visit | | [address] | | | | | | [place] [address] | | | | | | [phone] | | | | | | | | +--------+---------+ + + + documented as of this encounter Visit Diagnoses Not on filedocumented in this encounter
--- OUTSIDE RECORDS SUMMARY | ~2020-01-31 | XMS | Clinical Summary ---
Demographics + + + | Address | [address] | | | [place] [address] | + + + | Home Phone | | + + + | Preferred Language | Unknown | + + + | Marital Status | | + + + | Worship Affiliation | 1077 | + + + | Race | White | + + + | Ethnic Group | Not or | + + + Author + + + | Author | [facility] | | | and [place] | + + + | Organization | [facility] | | | [...] [place] | | | | | [address] | | + + + + + | Todd Guzman | ECON | Unknown | | + + + + + Care Team Providers + +------+ + | Care Senior Rd Engineer Name | Role | Phone | + +------+ + | Lamont Santoyo MD | PCP | | + +------+ + Allergies + + + + + + | Active Allergy | Reactions | Severity | Noted | Comments | | | | | Date | | + + + + + + | Meperidine | Other (See Comments) | | 01/01/20 | Per pt makes her | | | | | 18 | feel odd | + + + + + + | Famotidine | Anaphylaxis | High | 01/01/20 | Cardiac arrest | | | | | 18 | | + + + + + + Medications + + + +---------+------+------+-------+ | Medication | Sig | Dispensed | Refills | Star | End | Statu | | | | | | t | Date | s | | | | | | Date | | | + + + +---------+------+------+-------+ | heparin 1,000 | Inject 2.4-4.9 mLs | | 0 | 09/2 | | Activ | | units/mL injection | into the vein as | | | 6/20 | | e | | | needed. | | | 20 | | | + + + +---------+------+------+-------+ | heparin in | Inject 1,094.4 | | 0 | 09/2 | | Activ | | half-normal saline | Units/hr into the | | | 6/20 | | e | | 100 units/mL | vein continuous. | | | 20 | | | | infusion | | | | | | | + + + +---------+------+------+-------+ | aspirin 325 mg | Take 650 mg by mouth | | 0 | | 09/2 | Disco | | tablet | Daily. | | | | 6/20 | ntinu | | | | | | | 20 | ed | + + + +---------+------+------+-------+ | coenzyme Q10 100 | Take 300 mg by mouth | | 0 | | 09/2 | Disco | | MG CAPS | Daily. | | | | 6/20 | ntinu | | | | | | | 20 | ed | + + + +---------+------+------+-------+ | fish oil 1,000 mg | Take 1,000 mg by | | 0 | | 09/2 | Disco | | capsule | mouth Daily. | | | | 6/20 | ntinu | | | | | | | 20 | ed | + + + +---------+------+------+-------+ | ibuprofen (ADVIL, | Take 400 mg by mouth | | 0 | | 09/2 | Disco | | MOTRIN) 200 mg | every 4 hours as | | | | 6/20 | ntinu | | tablet | needed. | | | | 20 | ed | + + + +---------+------+------+-------+ | Multiple | Take 1 tablet by | | 0 | | 09/2 | Disco | | Vitamins-Minerals | mouth Daily. | | | | 6/20 | ntinu | | ( [facility] | | | | | 20 | ed | | PO) | | | | | | | + + + +---------+------+------+-------+ | Vit-Fe | Take 1 tablet by | | 0 | | 09/2 | Disco | | Fumarate-FA | mouth Daily. | | | | 620 | ntinu | | ( COMPLETE) | | | | | 20 | ed | | 14-0.4 MG TABS | | | | | | (Erro | | | | | | | | r) | + + + +---------+------+------+-------+ | calcium | Take 625 mg by mouth | | 0 | | 09/2 | Disco | | polycarbophil (RA | Daily. | | | | 6/20 | ntinu | | [facility]) 625 | | | | | 20 | ed | | mg tablet | | | | | | | + + + +---------+------+------+-------+ | ascorbic acid | Take 500 mg by mouth | | 0 | | 09/2 | Disco | | (VITAMIN C) 500 mg | Daily. | | | | 6/20 | ntinu | | tablet | | | | | 20 | ed | + + + +---------+------+------+-------+ | cholecalciferol | Take 2,000 Units by | | 0 | | 09/2 | Disco | | (CHOLECALCIFEROL) | mouth Daily. | | | | 6/20 | ntinu | | 2000 units TABS | | | | | 20 | ed | + + + +---------+------+------+-------+ | Cholecalciferol | Take by mouth | | 0 | | 09/2 | Disco | | (VITAMIN D-3) 2000 | Daily. | | | | 6/20 | ntinu | | units CAPS | | | | | 20 | ed | + + + +---------+------+------+-------+ | loperamide | Take 2 mg by mouth 4 | | 0 | | 09/2 | Disco | | (IMODIUM A-D) 2 MG | times daily as | | | | 6/20 | ntinu | | tablet | needed for Diarrhea. | | | | 20 | ed | + + + +---------+------+------+-------+ | bismuth | Take 15 mLs by mouth | | 0 | | 09/2 | Disco | | subsalicylate | every 6 hours as | | | | 6/20 | ntinu | | (PEPTO-BISMOL) 262 | needed for | | | | 20 | ed | | mg/15 mL suspension | Indigestion. | | | | | | + + + +---------+------+------+-------+ | | Take 1 tablet by | 20 | 0 | 08/2 | 09/2 | Disco | | HYDROcodone-acetamin | mouth every 4 hours | tablet | | 6/20 | 6/20 | ntinu | | ophen (NORCO) 5-325 | as needed for Pain. | | | 20 | 20 | ed | | mg per tablet | | | | | | | + + + +---------+------+------+-------+ | ondansetron | Take 1 tablet by | 24 | 0 | 08/2 | 09/2 | Disco | | (ZOFRAN ODT) 4 mg | mouth every 8 hours | tablet | | 6/20 | 6/20 | ntinu | | disintegrating | as needed for | | | 20 | 20 | ed | | tablet | Nausea. | | | | | | + + + +---------+------+------+-------+ | | Take 1 tablet by | 30 | 0 | 09/2 | 09/2 | Disco | | oxyCODONE-acetaminop | mouth every 4 hours | tablet | | 2/20 | 6/20 | ntinu | | hen (PERCOCET) 5-325 | as needed for Pain. | | | 20 | 20 | ed | | mg per tablet | | | | | | | + + + +---------+------+------+-------+ | ondansetron | Take 1 tablet by | 20 | 1 | 09/2 | 09/2 | Disco | | (ZOFRAN) 4 mg tablet | mouth every 6 hours | tablet | | 2/20 | 6/20 | ntinu | | | as needed for | | | 20 | 20 | ed | | | Nausea. 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 | 12/06/2019 | + + + + + | Overview: Added automatically from request for surgery | | [id number] | + + + + + | Compression fracture of L2 lumbar vertebra, closed, initial | 01/15/2018 | | encounter | | + + + | Compression fracture of L3 lumbar vertebra, closed, initial | 01/15/2018 | | encounter | | + + + | Compression fracture of L1 lumbar vertebra with routine healing | 01/15/2018 | + + + + + | Overview: Problem List Signal Timer Utility | + + + + + | Spondylolisthesis of lumbar region | 01/15/2018 | + + + | Osteoporosis | 01/15/2018 | + + + | Occult blood in stools | 03/02/2017 | + + + Encounters +--------+ + + + + | Date | Type | Specialty | Care Team | Description | +--------+ + + + + | 01/18/ | Telephone | General Surgery | Pepe Stone, | Other (information ) | | 2019 | | | MD | | +--------+ + + + + | 01/15/ | Telephone | General Surgery | Pepe Stone, | Post-op Exam (tube | | 2019 | | | MD | removal ) | +--------+ + + + + | 01/13/ | Hospital | Internal Medicine | Pepe Trammell, | Pulmonary embolism, | | 2020 | Encounter | | MD Quick, | bilateral (HCC) | | | | | MD Francine Mederos, | (Primary Dx); | | | | | Ivan, DO | Shortness of breath; | | | | | | Syncope, | | | | | | unspecified syncope | | | | | | type; Acute | | | | | | pulmonary embolism | | | | | | with acute cor | | | | | | pulmonale, | | | | | | unspecified | | | | | | pulmonary embolism | | | | | | type (HCC); | | | | | | Malignant melanoma | | | | | | of right upper | | | | | | extremity including | | | | | | shoulder (HCC) | +--------+ + + + + | 01/11/ | Office | General Surgery | Pepe Stone, | Malignant melanoma | | 2019 | Visit | | MD | of finger of right | | | | | | hand ([facility]) (Primary | | | | | | Dx) | +--------+ + + + + | 01/10/ | Telephone | General Surgery | Pepe Stone, | Post Op | | 2019 | | | MD | | +--------+ + + + + | 01/09/ | Anesthesia | | Belia Busby, | | | 2020 | Event | | BUSINESS SYSTEMS LEAD | | +--------+ + + + + | 01/09/ | Surgery | | Pepe Stone, | DISSECTION LYMPH | | 2019 | | | MD | NODE - AXILLARY | +--------+ + + + + | 01/09/ | Hospital | | Pepe Stone, | Malignant melanoma | | 2019 | Encounter | | MD | of finger of right | | | | | | hand (HCC) | +--------+ + + + + | 12/27/ | Office | General Surgery | Pepe Stone, | Malignant melanoma | | 2019 | Visit | | MD | of finger of right | | | | | | hand (HCC) (Primary | | | | | | Dx) | +--------+ + + + + | 12/21/ | Office | Orthopedic Surgery | David Gomez, | Malignant melanoma | | 2019 | Visit | | MD | of right upper | | | | | | extremity including | | | | | | shoulder (HCC) | | | | | | (Primary Dx); Finger | | | | | | mass, right | +--------+ + + + + | 12/12/ | Surgery | | Pepe Stone, | BIOPSY LYMPH NODE | | 2020 | | | MD | GENERAL | +--------+ + + + + | 12/12/ | Anesthesia | | Sylwia Rhodes, | | | 2019 | Event | | MD Jacqueline Anderson, | | | | | | GAMALIEL Vincent | | +--------+ + + + + | 12/12/ | Hospital | Radiology | Pepe Stone, | Malignant melanoma | | 2019 | Encounter | | MD | of finger of right | | | | | | hand (HCC) | +--------+ + + + + | 12/12/ | Hospital | Internal Medicine | Pepe Stone, | Malignant melanoma | | 2020 - | Encounter | | MD David Gomez, | of finger of right | | | | | MD | hand ([facility]); | | 12/13/ | | | | Malignant melanoma | | 2020 | | | | of finger of right | | | | | | hand ([facility]) | +--------+ + + + + | 12/11/ | Hospital | Cardiology | Pepe Stone, | Preop testing | | 2019 | Encounter | | MD | | +--------+ + + + + | 12/11/ | Preadmit | Pre-Admission | Pepe Stone, | Preop testing | | 2019 | Visit | Testing | MD | (Primary Dx) | +--------+ + + + + | 12/11/ | Clinical | Primary Care | | Exposure to | | 2020 | Support | | | SARS-associated | | | | | | coronavirus (Primary | | | | | | Dx) | +--------+ + + + + | 12/08/ | Office | General Surgery | Pepe Stone, | Malignant melanoma | | 2019 | Visit | | MD | of finger of right | | | | | | hand (HCC) (Primary | | | | | | Dx) | +--------+ + + + + | 12/07/ | Orders Only | General Surgery | Pepe Stone, | Malignant melanoma | | 2019 | | | MD | of finger of right | | | | | | hand (HCC) (Primary | | | | | | Dx) | +--------+ + + + + | 12/04/ | Office | Orthopedic Surgery | David Gomez, | Malignant melanoma | | 2019 | Visit | | MD | of right upper | | | | | | extremity including | | | | | | shoulder (HCC) | | | | | | (Primary Dx); Finger | | | | | | mass, right; Finger | | | | | | pain, right | +--------+ + + + + from Last 3 Months Family History + + +------+ + | Medical History | Relation | Name | Comments | + + +------+ + | Alzheimer's disease | Mother | | | + + +------+ + | TIA | Other | | | + + +------+ + | Breast cancer | Neg Hx | | | + + +------+ + | Malig hypertherm | Neg Hx | | | + + +------+ + + +------+ + + | Relation | Name | Status | Comments | + +------+ + + | Mother | | | | | | | (Age | | | | | 89) | | + +------+ + + | Other | | | | | | | (Age | | | | | 83) | | + +------+ + + Social History + +-------+ +--------+ [...] + + + Last Filed Vital Signs + + + [...] | | + + + + + Plan of Treatment +--------+---------+ + + + | Date | Type | Specialty | Care Team | Description | +--------+---------+ + + + | 01/31/ | Office | General Surgery | Pepe Stone, | | | 2019 | Visit | | [address] | | | | | | [address] [facility] | | | | | | [place] [address] | | | | | | [phone] | | | | | | | | +--------+---------+ + + + | 02/01/ | Office | Orthopedic Surgery | David Gomez, | | | 2019 | Visit | | MD [address] | | | | | | [place] [address] | | | | | | [phone] | | | | | | | | +--------+---------+ + + + + + + + + | Health Maintenance | Due Date | Last | Comments | | | | Done | | + + + + + | Hepatitis C | | | | | Screening | 1 | | | + + + + + | Breast Cancer | | | | | Screening | 6 | | | + + + + + | Vaccine: | | | | | Pneumococcal 65+ (1 | 6 | | | | of 1 - PPSV23) | | | | + + + + + | Vaccine: Zoster (2 | | 01/19/20 | | | of 3) | 2 | 12 | | + + + + + | Adult Annual | | | | | Wellness Visit | 8 | | | + + + + + | Vaccine: | | 01/17/20 | | | Dtap/Tdap/Td (2 - | 5 | 15, | | | Td) | | 10/02/18 | | | | | 93 | | + + + + + | Vaccine: Influenza | Completed | 12/08/19 | | | | | 20, | | | | | 01/27/20 | | | | | 19, | | | | | 02/04/20 | | | | | 18, | | | | | Addition | | | | | al | | | | | history | | | | | exists | | + + + + + Procedures + +--------+ + + + | [...] | | n - | | | 01/13/ | | | 2019 | | | [...] | | | FICATI | | | ON?/ | | | | | | 0 | | | 04:18? | | | GUZMAN, | | | | | | FÁTIMA | | | | | | J?MRN: | | | | | | [id number] | | | [id number] | | | riteri | | | [...] | | | St. | | | [facility] | | | y | | | [...] | | | St. | | | [facility] | | | y H. | | [...] | | | ed.? | | | 2020 | | | Colle[employer] | | | tive | | | Medica | | | l | | | Techno | | | logies | | | , Inc. | | | - | | | [email or web address] | | | llecti | | | vemedi | | | [email or web address] | | | m | +---+--------+ + +--------+ + + + | ANE [...] | | | Needs | | | TIP STRETCHER | | | reques | | | [...] | | | | PDT | hand ([facility]) | results section. | + +--------+ + [...] | | | | PDT | hand ([facility]) | | + +--------+ + + + [...] | | | so | +---+--------+ + +--------+ + + + | NM [...] section. | + +--------+ + + + from Last 3 Months Results ECHO Complete (01/14/2020 11:10 AM PDT) [...] +---------+ + + PTT (01/14/2020 10:53 AM PDT)Only the most recent of 2 results within the time period is in cluded. + + + + + + | Component | Value | Ref Range | Performed | Pathologist | | | | | At | Signature | + + + + + + | PTT | 26Comment: Testing | 23 - 32 seconds | [facility] | | | | performed at [facility];[address] | | LABORATORY | | | | [facility];[place], [place] | | | | | | [address] | | | | + + + + + + + + | Specimen | + + | Blood | + + + + + + + | Performing | Address | City/State/Zipcode | Phone Number | | Organization | | | | + + + + + | [facility] | [address] | [place] [address] | [phone] | + + + + + VAS [...] Procedure Note | + + | Jaquan, [id number] - 01/14/2020 11:13 AM PDT | | [...] Testing | 65 - 99 mg/dL | [facility] | | | POC | performed at [facility];[address] | | LABORATORY | | | | [address];[place], [place] | | | | | | [address] | | | | + + + + + + + + | Specimen | + + | | + + + + + + + | Performing | Address | City/State/Zipcode | Phone Number | | Organization | | | | + + + + + | [facility] | [address] | [place] [address] | [phone] | + + + + + CBC [...] | | | Absolute | performed at [facility];[address] | [address] | LABORATORY | | | | [address];[place], [place] | | | | | | [address] | | | | + + + + + + + + | Specimen | + + | Blood | + + + + + + + | Performing | Address | City/State/Zipcode | Phone Number | | Organization | | | | + + + + + | [facility] | [address] | [place] [address] | [phone] | + + + + + Magnesium (01/14/2020 6:29 AM PDT) + + + + + + | Component | Value | Ref Range | Performed | Pathologist | | | | | At | Signature | + + + + + + | Magnesium | 1.9Comment: Testing | 1.7 - 2.4 mg/dL | [facility] | | | | performed at [facility];[address] | | LABORATORY | | | | [address];[place] | | | | | | [address] | | | | + + + + + + + + | Specimen | + + | Blood | + + + + + + + | Performing | Address | City/State/Zipcode | Phone Number | | Organization | | | | + + + + + | [facility] | [address] | [place] [address] | [phone] | + + + + + Comprehensive [...] (H) | 10 - 65 U/L | [facility] | | | | | | LABORATORY | | + + + + + + | Estimated | 60 (L)Comment: GFR <60: | >60 | [facility] | | | GFR | CHRONIC KIDNEY [...] | | | | | performed at [facility];[address] | | | | | | [facility];[place], [place] | | | | | | [address] | | | | + + + + + + + + | Specimen | + + | Blood | + + + + + + + | Performing | Address | City/State/Zipcode | Phone Number | | Organization | | | | + + + + + | [facility] | [address] | [place] [address] | [phone] | + + + + + ECG 12 lead (01/14/2020 5:14 AM PDT)Only the most recent of 2 results within the time jelly od is included. + + + + + + | [...] | | | | | | (500), publication editor Sharma, | | | | | | Nirali ([id number]) on | | | | | | [...] SARS-CoV-2, | NEGATIVEComment: This | NEG | [facility] | | | NAAT | test was [...] | | | | | performed at [facility];[address] | | | | | | [address];[place], [place] | | | | | | [address] | | | | + + + + + + + + | Specimen | + + | Tissue - Entire | | nasopharynx (body | | structure) | + + + + + + + | Performing | Address | City/State/Zipcode | Phone Number | | Organization | | | | + + + + + | [facility] | [address] | [place] [address] | [phone] | + + + + + Airway (01/10/2020 1:01 PM PDT) + + [...] medication documentation. | | + + + POC Coronavirus (COVID-19) NAAT (01/10/2020 10:43 AM PDT)Only the most recent of 2 results within the time period is included. + + + + + + | [...] Negative results, using the | | | Loopback ID NOW Platform, should be treated as [...] + Surgical Pathology Exam (01/10/2020 12:00 AM PDT)Only the most recent of 2 results within t he time period is included. + + | Specimen | + + [...] yellow to brown-mckeon and hemorrhagic cut surface. Manager Sales And Marketing | | | sections are submitted as [...] | LABORATORY:The technical component was performed by [facility] | | | [facility], [address] [place] [address] (Deaf Teacher: | | | Grace Godinez MD; CLIA# [id number]).Professional interpretation was | | | performed by [facility], [facility] | | | [place] [address] (Deaf Teacher: Donnie | | | Clay Arteaga; CLIA#: [id number]). Diagnostician: Grace Godinez | | | MDPathologistElectronically Signed 01/16/2020 | | |Professional interpretation was performed by [facility], [address] [place] [address] (Deaf Teacher: Donnie Arteaga M.D.; [facility]#: [id number]). | | | | | |Diagnostician: Grace [...] | | | + +---------+ + + Airway (12/13/2019 4:45 PM PDT) + + [...] medication documentation. | | + + + NM Lymph System Melanoma (12/13/2019 3:51 PM [...] prepared by the nuclear | | | lead technologist in cytogenetics. The right index finger was prepped in [...] Procedure Note | + + | Jaquan, [id number] - 12/15/2019 12:59 PM PDT | | NM LYMPH SYSTEM MELANOMA | | | | CLINICAL INFORMATION: | | Pre operative, Patient is scheduled for surgery on 12/13/19 | | | | COMPARISON: | | None | | | | PROCEDURE: | | Radiopharmaceutical was prepared by the chief radiologic technologist. | | The right index finger was [...] | | | + +---------+ + + from Last 3 Months Insurance + +--------+ +--------+ +---------+--------+ | Payer | Benefi | Subscriber | Effect | Phone | Address | Type | | | t Plan | ID | jane | | | | | | / | | Dates | | | | | | Group | | | | | | + +--------+ +--------+ +---------+--------+ | MEDICARE | MEDICA | [id number] | 10/19/19 | [phone] | | Medica | | | RE | | 06-Pre | 5 | | re | | | PART A | | sent | | | | | | AND B | | | | | | + +--------+ +--------+ +---------+--------+ | MEDICARE | MEDICA | [id number] | 10/19/19 | [phone] | | Medica | | | RE | | 06-Pre | 5 | | re | | | PART A | | sent | | | | | | AND B | | | | | | + +--------+ +--------+ +---------+--------+ | BCBS | BCBS | [id number] | 04/20/19 | | | PPO | | | FEDERA | | 16-Pre | | | | | | L FEP | | sent | | | | + +--------+ +--------+ +---------+--------+ | BCBS | BCBS | [id number] | 04/20/19 | | | PPO | | | [employer]ERA | | 16-Pre | | | | | | L FEP | | sent | | | | + +--------+ +--------+ +---------+--------+ + +--------+ +--------+ + + | Guarantor Name | Accoun | Relation to | Date | Phone | Billing Address | | | t Type | Patient | of | | | | | | | | | | + +--------+ +--------+ + + | Fátima Guzman | Person | Self [birth year] | [address] | | | al/Fam | | 1941 | [phone] | [place], [place] | | | [place] | | | 2 (Home) | [address] | + +--------+ +--------+ + + | Fátima Guzman | Person | Self | [birth year] | [address] | | | al/Fam | | 1941 | [phone] | [place], [place] | | | [place] | | | 2 (Home) | [phone] | + +--------+ +--------+ + + | Fátima Guzman | Person | Self | [birth year] | [address] | | | al/Fam | | 1941 | [phone] | [place], [place] | | | [place] | | | 2 (Home) | [phone] | + +--------+ +--------+ + + Advance Directives + + + + + | Type | Date Recorded | Patient | Explanation | | | | Manager Sales And Marketing | | + + + + + | Power of | 12/12/2019 1:21 | | | | Heating And Refrigeration Inspector | PM | | | + + + + + | Advance | 12/30/2019 2:09 | | | | Directive | PM | | | + + + + + + + + + + | Code Status | Date | Date | Comments | | | Activated | Inactivated | | + + + + + | Full Code | 01/14/2020 | 01/14/2020 | | | | 8:00 AM | 4:59 PM | | + + + + + + + + +---+ | | | | | + + + +---+ | Full Code | 01/10/2020 | 01/10/2020 | | | | 2:54 PM | 7:10 PM | | + + + +---+ + + + +---+ | | | | | + + + +---+ | Full Code | 12/13/2019 | 12/14/2019 | | | | 8:02 PM | 1:26 PM | | + + + +---+
[~2020-01-31 17:34] MED LIST changes: +COENZYME Q10100 M1 PO; +FIBER625 MG; +OXYCODONE-ACET1 EAC1 PO; +VITAMIN C500 M5 PO
--- OUTSIDE RECORDS SUMMARY | 2020-01-31 17:38 | XMS ---
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 Ruth has no Care Guidelines for this patient. EGracie VISIT COUNT (12 MO.) 1 [facility] 2 [facility] T[facility] NOTE: Visits indicate total known visits. ED/C VISIT TRACKING (12 MO.) 01/31/2020 17:35 [facility] [place] TYPE: Emergency COMPLAINT: - SOB, CHEST PAIN, NAUSEA, DIARRHEA 01/14/2020 04:18 [facility] TYPE: Emergency DIAGNOSES: - Diarrhea (Adult) - Syncope - Syncope and collapse - Shortness of Breath - Other pulmonary embolism without acute cor pulmonale - Shortness of breath 01/14/2020 01:13 [facility] [place] TYPE: Emergency COMPLAINT: - V/D,SOB,SYNCOPE DIAGNOSES: - Pain in right upper arm - Personal history of nicotine dependence - longterm (current) use of aspirin - Allergy status to other drugs, medicaments and biological sub - Other pulmonary embolism without acute cor pulmonale - Other penitentiary (current) drug therapy INPATIENT VISIT TRACKING (12 MO.) 01/14/2020 17:05 [facility] [place] TYPE: Medical Surgical DIAGNOSES: 0. Other pulmonary embolism without acute cor pulmonale 1. Other pulmonary embolism without acute cor pulmonale 1. Other pulmonary embolism without acute cor pulmonale 2. Acute respiratory failure with hypoxia 3. Moderate protein-calorie malnutrition 4. Other forms of acute ischemic heart disease 5. Secondary malignant neoplasm of unspecified site 6. Systemic inflammatory response syndrome (SIRS) of non-infecti 7. Urinary tract infection, site not specified 8. Malignant melanoma of right upper limb, including shoulder 9. Unspecified open wound of right upper arm, initial encounter 10. Gastro-esophageal reflux disease without esophagitis 11. Body mass index (BMI) 22.0-22.9, adult 12. Essential (primary) hypertension 13. Cor pulmonale (chronic) 14. Hemorrhage, not elsewhere classified 15. Low back pain 16. Proteus (mirabilis) (morganii) as the cause of diseases class 17. Acquired absence of right finger(s) 18. Personal history of infections of the central nervous system 19. Personal history of nicotine dependence 01/14/2020 04:18 [facility] TYPE: Internal Medicine DIAGNOSES: - Shortness of breath - Malignant melanoma of right upper limb, including shoulder - Other pulmonary embolism without acute cor pulmonale - Other pulmonary embolism with acute cor pulmonale - Syncope and collapse [email or web address]
[2020-01-31] MEDS ORDERED: ELIQUIS5 MG PO (17:57)
--- NOTE | 2020-02-01 17:18 | EKG ---
[facility] [address] [facility] [place] [address] Signed Sinus tachycardia Possible Left atrial enlargement Borderline ECG When compared with ECG of 14-JAN-2020 01:19, premature atrial complexes are no longer present Right bundle branch block is no longer present Criteria for Septal infarct are no longer present Confirmed by YUNIEL OWENS DO ([id number]) on 02/01/2020 5:18:30 PM Electronically Signed By: YUNIEL OWENS DO 02/01/20 1718 PATIENT NAME: JOELLE GUZMAN SHANIA Electrocardiogram DATE OF : 40 PHYSICIAN: YUNIEL OWENS DO REPORT #: [id number] REPORT IS CONFIDENTIAL AND NOT TO BE RELEASED WITHOUT AUTHORIZATION
== END 2020-01-31 22:55 | disposition left against medical advice (07) ==
LOC: ED 17:34
DX: K85.90 Acute pancreatitis without necrosis or infection, unspecified (principal); R77.8 Other specified abnormalities of plasma proteins; R74.8 Abnormal levels of other serum enzymes; Z87.891 Personal history of nicotine dependence; Z88.8 Allergy status to other drugs, medicaments and biological substances; Z79.899 Other long term (current) drug therapy
CPT/HCPCS: 71045; 71260; 80053; 83605; 83690; 83735; 84484; 85025; 85610; 93005; 93010; 99285-25; Q9967

== ENCOUNTER 2021-11-30 17:17 | Emergency (ER) | payer MEDICARE, BC ==
[~2021-11-30] VITALS: Ht 172.7 cm; Wt 52.6 kg
[~2021-11-30 17:17] MED LIST changes: +ELIQUIS5 MG PO
[2021-11-30] MEDS ORDERED: OMEPRAZOLE20 MG (17:47)
[2021-11-30] MEDS ORDERED: CARVEDILOL25 MG (17:47)
[2021-11-30] MEDS ORDERED: CREON DR 24,001 EACH (17:47)
[2021-11-30] MEDS ORDERED: SODIUM FLUORIDE56 GM (17:48)
== END 2021-11-30 23:21 | disposition home or self-care (01) ==
LOC: ED 17:17
DX: R10.11 Right upper quadrant pain (principal); K46.9 Unspecified abdominal hernia without obstruction or gangrene; I10 Essential (primary) hypertension; Z88.8 Allergy status to other drugs, medicaments and biological substances; Z79.899 Other long term (current) drug therapy; Z79.01 Long term (current) use of anticoagulants
CPT/HCPCS: 36415; 74177; 80053; 83690; 85025; 99284-25; Q9967

== ENCOUNTER 2024-04-23 17:26 | Emergency (ER) | payer MEDICARE, BC ==
[~2024-04-23] VITALS: Ht 170.2 cm; Wt 58.1 kg
[~2024-04-23 17:26] MED LIST changes: +CARVEDILOL25 MG; +CREON DR 24,001 EACH; +CYCLOBENZAPRINE10 MG PO; +OMEPRAZOLE20 MG; +SODIUM FLUORIDE56 GM
[2024-04-23] MEDS ORDERED: ALBUTEROL SULFATE 0.083% 3 ML VIAL INH ONE ×2 (18:00→19:30)
[2024-04-23] MEDS ORDERED: methylPREDNISolone SOD SUCC 125 MG/2 ML VIAL IV ONE (18:15)
[2024-04-23 18:44] LABS: BASOPHILS 0.8 % (0-2); EOSINOPHILS 4.4 % (0-6); HEMATOCRIT 43.5 % (35.0-50.0); HEMOGLOBIN 14.7 g/dL (12.0-18.0); LYMPHOCYTES 9.2 % (24-44); MCH 30.8 (27-36); MCHC 33.8 g/dl (30-36); MCV 91.2 fl (81-99); MONOCYTES 9.3 % (0-12); NEUTROPHILS 76.3 % (39-80); PLATELET COUNT 306 K/uL (140-440); RBC 4.77 M/ul (4.3-5.7); RDW 13.6 (10.5-15.0)
[2024-04-23 19:06] LABS: ALBUMIN 3.8 g/dL (3.4-5.0); ALBUMIN/GLOBULIN RATIO 1.15 (1.1-2.4); ANION GAP 12.1 (7-21); BILIRUBIN, TOTAL 0.4 ng/dL (0.2-1.0); BUN/CREATININE RATIO 25.31 (6.0-28.6); CALCIUM 9.7 mg/dL (8.5-10.1); CREATININE, SERUM 0.79 mg/dL (0.55-1.02); POTASSIUM 4.1 mmol/L (3.5-5.1); PROTEIN, TOTAL 7.1 g/dL (6.4-8.2)
[2024-04-23 20:14] LABS: INFLUENZA B NAA NEGATIVE (NEGATIVE); RESPIRATORY SYNCYTIAL VIR NAA NEGATIVE (NEGATIVE)
[2024-04-23] MEDS ORDERED: ALBUTEROL SULFATE 8 GM HOME.PACK INH ONE (20:45)
[2024-04-23] MEDS ORDERED: INHALER, ASSIST DEVICES 1 EACH SPACER MISC ONE (20:45)
[2024-04-23] MEDS ORDERED: methylPREDNISolone 4 MG HOME.PACK PO ONE (20:45)
[2024-04-23 21:57] VITALS: BP 118/75
--- NOTE | 2024-04-24 19:19 | EKG ---
[facility] [address] [facility] [place] [address] Signed Normal sinus rhythm Nonspecific ST abnormality Abnormal ECG When compared with ECG of 21-JAN-2023 17:18, No significant change was found Confirmed by Hector Mariee MD ([id number]) on 04/24/2024 7:19:40 PM Electronically Signed By: HECTOR MARIEE MD 04/24/241918 PATIENT NAME: JOELLE GUZMAN SHANIA Electrocardiogram DATE OF : 40 PHYSICIAN: HECTOR MARIEE MD REPORT #: [id number] REPORT IS CONFIDENTIAL AND NOT TO BE RELEASED WITHOUT AUTHORIZATION
== END 2024-04-23 23:37 | disposition home or self-care (01) ==
LOC: ED 17:26
PROVIDERS: Emergency Medicine
DX: J20.9 Acute bronchitis, unspecified (principal); R10.11 Right upper quadrant pain; I10 Essential (primary) hypertension; Z87.891 Personal history of nicotine dependence; Z88.8 Allergy status to other drugs, medicaments and biological substances; Z79.01 Long term (current) use of anticoagulants; Z79.899 Other long term (current) drug therapy
CPT/HCPCS: 36415; 71045; 80053; 83880; 84484; 85025; 85379; 87502; 94640; 94664; 94667; 96374; 99285-25; J2919; U0002